=== PATIENT | female | born 1975 | race Hispanic/Latino ===

== ENCOUNTER 2018-03-08 11:00 | Emergency (ER) | payer BC, SELFPAY ==
--- NOTE | 2018-03-08 12:38 | RAD REPORT ---
EXAM DESCRIPTION: CT - Head Brain Wo Cont - 03/08/2018 12:27 pm CLINICAL HISTORY: Left arm numbness for 1 week COMPARISON: None. TECHNIQUE: Computed axial tomography of the head was obtained. IV contrast was not requested. All CT scans are performed using dose optimization technique as appropriate and may include automated exposure control or mA/KV adjustment according to patient size. FINDINGS: An intracranial bleed is not seen . The ventricles are normal in caliber. No extra-axial fluid collection is noted. Fluid within the sinuses/ mastoids is not seen. IMPRESSION: No acute intracranial abnormality is seen. If patient's symptoms persist MRI of the bra in would be recommended.
[2018-03-08] MEDS ORDERED: NA CHLORIDE 0.9% 1,000 ML ONE (12:41)
[2018-03-08] MEDS ORDERED: METOPROLOL TAR 25 MG TAB ONE (12:49)
--- NOTE | 2018-03-08 13:02 | RAD REPORT ---
EXAM DESCRIPTION: RAD - Chest Single View - 03/08/2018 12:46 pm CLINICAL HISTORY: Chest pain, cough COMPARISON: None. TECHNIQUE: AP portable chest image was obtained 1223 hours . FINDINGS: Lungs are clear. Heart and vasculature are normal. No measurable pleural effusion and no p neumothorax. No gross bony abnormality seen. No acute aortic findings suspected. IMPRESSION: No acute cardiopulmonary process.
[2018-03-08 13:11] LABS: Urine Blood TRACE (NEG); Urine Glucose NEGATIVE (NEG); Urine Protein NEGATIVE (NEG); Urine Specific Gravity 1.015 (1.005-1.030)
[2018-03-08 13:22] LABS: Absolute Lymphocytes (CBC) 1.5 K/uL (0.7-4.9); Absolute Monocytes 0.4 K/uL (0.1-1.3); Absolute Neutrophil 1.7 K/uL (1.8-8.0); Basophils % 1.1 % (0-1.3); Eosinophils % 0.9 % (0-4.4); Hematocrit 39.8 % (36.0-45.0); Lymphocytes % 40.7 % (15.3-44.8); MCV 87.4 fL (80-100); MPV 8.6 fL (7.6-11.3); Monocytes % 10.9 % (3.3-12.3); RBC Red Blood Cell Count 4.55 M/uL (3.86-4.86)
[2018-03-08 13:25] LABS: Bicarbonate 28 mEq/L (21-31); Glucose Level 98 mg/dL (65-120); Potassium 3.4 mEq/L (3.6-5.0); Sodium Level 138 mEq/L (135-145)
[2018-03-08 13:28] LABS: Protime INR 0.95
[2018-03-08 13:31] LABS: ALT/SGPT 31 IU/L (10-60); AST/SGOT 26 IU/L (10-42); Albumin 4.3 g/dL (3.2-5.5); Alkaline Phosphatase 68 IU/L (42-121); BUN Blood Urea Nitrogen 7 mg/dL (6-20); Bilirubin Direct 0.1 mg/dL (0-0.2); Bilirubin Total 0.4 mg/dL (0.3-1.2); Creatine Phosphokinase 50 IU/L (22-269); Protein, Total 7.6 g/dL (6.0-8.3)
[2018-03-08 13:33] LABS: CKMB Creatine Kinase MB 0.4 ng/ml (0.3-4.0)
--- NOTE | 2018-03-08 13:35 | EKG ---
Test Date: 2018-03-08 Test Time: 11:38:17 Fund Development Manager: AMADO MEASUREMENT RESULTS: Intervals: Rate: 71 MN: 146 QRSD: 76 QT: 394 QTc: 428 [place]: P: 52 MN: 146 QRS: 14 T: 53 INTERPRETIVE STATEMENTS: Normal sinus rhythm Normal ECG Compared to ECG 06/21/2008 13:43:46 Sinus arrhythmia no longer present Electronically Signed On 03-08-18 13:35:25 CDT by Edy Hudson
[2018-03-08] MEDS ORDERED: ASPIRIN 81 MG CHEWABLE TABLET ONE (14:07)
--- NOTE | 2018-03-08 16:00 | EDPHYS ---
Physician Documentation [facility] Name: Shahnaz Ortega Age: 42 yrs Sex: Female : 1975 Arrival Date: 03/08/2018 Time: 11:06 Bed 14 Private MD: Out, [facility] ED Physician Everton Vásquez HPI: 03/08 12:12 This 42 yrs old Female presents to ER via Ambulatory with complaints of Chest cp Pain, Arm Pain. 12:12 The patient or guardian reports chest pain that is located primarily in the anterior cp chest wall, bilaterally. Onset: 1 week(s) ago. 12:12 The pain does not radiate. Associated signs and symptoms: Pertinent positives: cough, cp left arm tingling times 1 week, Pertinent negatives: abdominal pain, diaphoresis, dizziness, headache, lightheadedness, palpitations, recent travel, shortness of breath, syncope. The chest pain is described as a heaviness, a pressure, wax and wane. Duration: The patient or guardian reports a single episode, wax and wanes. Severity of pain: in the emergency department the pain is unchanged despite home interventions. 12:12 Patient reports history of hypertension but stopping medication. Patient denies history cp of diabetes or elevated cholesterol. 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 - Social history:: Smoking status: Patient/guardian denies using tobacco. - Ebola Screening: : Patient negative for fever greater than or equal to 101.5 degrees Fahrenheit, and additional compatible Ebola Virus Disease symptoms Patient denies exposure to infectious person Patient denies travel to an Ebola-affected area in the 21 days before illness onset No symptoms or risks identified at this time. ROS: 12:15 Constitutional: Negative for body aches, chills, fever, poor PO intake. cp 12:15 Eyes: Negative for injury, pain, redness, and discharge. cp 12:15 ENT: Positive for nasal congestion, Negative for drainage from ear(s), ear pain, sore throat, difficulty swallowing, difficulty handling secretions. 12:15 Neck: Negative for stiffness, swollen nodes, tenderness, bony tenderness. 12:15 Cardiovascular: Positive for chest pain, Negative for edema, palpitations. 12:15 Respiratory: Positive for cough, with no reported sputum, Negative for shortness of breath, wheezing. 12:15 Abdomen/GI: Negative for abdominal pain, nausea, vomiting, and diarrhea, constipation, cp black/tarry stool, rectal bleeding. 12:15 Back: Negative for pain at rest, pain with movement. 12:15 : Negative for urinary symptoms. 12:15 MS/extremity: Negative for injury or acute deformity, decreased range of motion, pain, tenderness. 12:15 Skin: Negative for cellulitis, diaphoresis, rash. 12:15 Neuro: Positive for tingling, of the left arm, Negative for altered mental status, dizziness, headache, syncope, near syncope, visual changes, weakness. 12:15 All other systems are negative. Exam: 11:48 ECG was reviewed by the Attending Physician. cp 12:25 Constitutional: The patient appears in no acute distress, alert, awake, cp non-diaphoretic, well developed, well nourished. 12:25 Head/Face: Normocephalic, atraumatic. cp 12:25 Eyes: Periorbital structures: appear normal, Pupils: equal, round, and reactive to light and accomodation, Extraocular movements: intact throughout, Conjunctiva: normal, no exudate, no injection, Sclera: no appreciated abnormality, Lids and lashes: appear normal, bilaterally. 12:25 ENT: External ear(s): are unremarkable, Ear canal(s): are normal, clear, TM's: bulging, is not appreciated, bilaterally, dullness, bilaterally, erythema, is not appreciated, bilaterally, Nose: is normal, Mouth: is normal, Posterior pharynx: is normal, airway is patent, no erythema, no exudate, Voice: is normal. 12:25 Neck: ROM/movement: is normal, is supple, without pain, no range of motions limitations, no nuchal rigidity. 12:25 Chest/axilla: Inspection: normal, Palpation: is normal, no crepitus, no tenderness. 12:25 Cardiovascular: Rate: normal, Rhythm: regular, Pulses: Pulses are 2+ in right radial artery and left radial artery. Heart sounds: murmur, not appreciated, rub, not appreciated, gallop, not appreciated, Edema: is not appreciated, JVD: is not appreciated. 12:25 Respiratory: the patient does not display signs of respiratory distress, Respirations: normal, no use of accessory muscles, no retractions, no splinting, no tachypnea, labored breathing, is not present, Breath sounds: are clear throughout, no decreased breath sounds, no stridor, no wheezing. 12:25 Abdomen/GI: Inspection: abdomen appears normal, Bowel sounds: active, all quadrants, Palpation: abdomen is soft and non-tender, in all quadrants, rebound tenderness, is not appreciated, voluntary guarding, is not appreciated, involuntary guarding, is not appreciated. 12:25 Back: pain, is absent, ROM is normal, CVA tenderness, is absent, vertebral tenderness, is not appreciated. 12:25 Musculoskeletal/extremity: Extremities: all appear grossly normal, with no appreciated pain with palpation. 12:25 Skin: cellulitis, is not appreciated, no rash present. 12:25 Neuro: Cerebellar function: is grossly normal, Motor: moves all fours, strength is normal, Sensation: tingling, that is mild, of the left arm, Gait: is steady. Vital Signs: 11:10 BP 151 / 112; Pulse 77; Resp 16; Temp 97.4; Pulse Ox 99% on R/A; Weight 65.77 kg; aj Height 5 ft. 2 in. (157.48 cm); 13:00 BP 132 / 103; Pulse 87; Resp 18 S; Pulse Ox 100% on R/A; sg 15:09 BP 149 / 98; Pulse 71; Resp 16; Pulse Ox 99% on R/A; sg 16:06 BP 141 / 98; Pulse 65; Resp 16; Pulse Ox 99% on R/A; sg 11:10 Body Mass Index 26.52 (65.77 kg, 157.48 cm) aj NIH Stroke Scale Scores: 12:15 NIHSS Score: 1 cp [place] Coma Score: 12:15 Eye Response: spontaneous(4). Verbal Response: oriented(5). Motor Response: obeys cp commands(6). Total: 15. MDM: 12:03 Patient medically screened. cp 13:00 Differential diagnosis: CVA, angina, acute VA, pneumonia, acute bronchitis, cardiac cp arrythmia, HTN crisis, electrolyte abnormality. 16:00 Data reviewed: vital signs, nurses notes, lab test result(s), EKG, radiologic studies, cp CT scan, plain films, and as a result, I will discharge patient. 16:00 Test interpretation: by ED physician or midlevel provider: ECG, plain radiologic cp studies. Counseling: I had a detailed discussion with the patient and/or guardian regarding: the historical points, exam findings, and any diagnostic results supporting the discharge/admit diagnosis, the presence of at least one elevated blood pressure reading (>120/80) during this emergency department visit, lab results, radiology results, the need for outpatient follow up, a family practitioner, to return to the emergency department if symptoms worsen or persist or if there are any questions or concerns that arise at home. Response to treatment: the patient's symptoms have markedly improved after treatment. Special discussion: Based on the patient's history, exam, and Dx evaluation, there is no indication for emergent intervention or inpatient Tx. It is understood by the patient/guardian that if the Sx's persist or worsen they need to return immediately for re-evaluation. I have referred the patient to see his PCP for further evaluation of high blood pressure. 16:00 The patient was given aspirin in the Emergency Department. cp 16:00 ED course: VSS. Head CT negative for acute findings. EKGs and troponins negative. Blood cp pressure improved and patient reports symptoms improved. Patient reports history of neck pain that was improved after daughter massaged area. Will discharge to home and recommend f/u with PCP. 03/08 12:17 Order name: Basic Metabolic Panel; Complete Time: 14:30 cp 03/08 14:31 Interpretation: Normal except: K 3.4. cp 03/08 12:17 Order name: BNP; Complete Time: 14:30 cp 03/08 12:17 Order name: CBC with Diff; Complete Time: 14:30 cp 03/08 14:31 Interpretation: Normal except: WBC 3.6; NEUT A 1.7. cp 03/08 12:17 Order name: Ckmb; Complete Time: 14:30 cp 03/08 12:17 Order name: CPK; Complete Time: 14:30 cp 03/08 12:17 Order name: LFT's; Complete Time: 14:30 cp 03/08 12:17 Order name: Magnesium; Complete Time: 14:30 cp 03/08 12:17 Order name: PT-INR; Complete Time: 14:30 cp 03/08 12:17 Order name: Ptt, Activated; Complete Time: 14:30 cp 03/08 12:17 Order name: Troponin (emerg Dept Use Only); Complete Time: 14:30 cp 03/08 15:07 Interpretation: TROPED < 0.03; Reviewed. 03/08 12:17 Order name: XRAY Chest (1 view); Complete Time: 13:07 cp 03/08 12:17 Order name: CT Head Brain wo Cont; Complete Time: 13:07 cp 03/08 12:47 Order name: Urine Dipstick--Ancillary (enter results); Complete Time: 14:30 em1 03/08 15:06 Interpretation: Normal except: UBLD TRACE. cp 03/08 15:19 Order name: Troponin (emerg Dept Use Only); Complete Time: 15:58 sg 03/08 12:17 Order name: EKG; Complete Time: 12:17 cp 03/08 12:17 Order name: Cardiac monitoring; Complete Time: 12:19 cp 03/08 12:17 Order name: EKG - Nurse/Tech; Complete Time: 15:33 cp 03/08 12:17 Order name: IV Saline Lock; Complete Time: 12:19 cp 03/08 12:17 Order name: Labs collected and sent; Complete Time: 12:19 cp 03/08 12:17 Order name: O2 Per Protocol; Complete Time: 12:19 cp 03/08 12:17 Order name: O2 Sat Monitoring; Complete Time: 12:19 cp 03/08 12:17 Order name: Urine Dipstick-Ancillary (obtain specimen); Complete Time: 12:46 cp 03/08 12:46 Order name: Urine Test (obtain specimen); Complete Time: 12:46 sg 03/08 15:19 Order name: EKG; Complete Time: 15:19 sg EC:48 Rate is 71 beats/min. Rhythm is regular. RI interval is normal. QRS interval is normal. cp QT interval is normal. No ST changes noted. Interpreted by me. Reviewed by me. Administered Medications: 13:00 Drug: Metoprolol 25 mg Route: PO; sg 14:00 Follow up: Response: No adverse reaction; Blood sugar is lowered sg 13:00 Drug: NS 0.9% 1000 ml Route: IV; Rate: 1 bolus; Site: right antecubital; sg 14:10 Drug: Aspirin Chewable Tablet 324 mg Route: PO; sg 15:00 Follow up: Response: No adverse reaction sg 16:07 Drug: Potassium Effervescent Tablet 25 mEq Route: PO; sg 16:48 Follow up: Response: No adverse reaction sg Disposition: 19:06 Co-signature as Attending Physician, Evreton Vásquez MD. rn Disposition: 03/08/18 16:00 Discharged to Home. Impression: Chest pain, unspecified, Paresthesia of skin - Left Arm, Hypertensive heart disease. - Condition is Stable. - Discharge Instructions: Nonspecific Chest Pain, Hypertension, Paresthesia, How to Take Your Blood Pressure, [id number], Aspirin and Your Heart, Managing Your High Blood Pressure. - Prescriptions for Metoprolol Tartrate 25 mg Oral Tablet - take 1 tablet by ORAL route 2 times per day with a meal; 30 tablet. - Work release form, Medication Reconciliation Form, Thank You Letter, Antibiotic Education, Prescription Opioid Use form. - Follow up: Private Physician; When: 1 - 2 days; Reason: Recheck today's complaints. Follow up: Edy Hudson MD; When: 1 - 2 days; Reason: hypertension and chest pain. - Problem is new. - Symptoms have improved. NIH Stroke Scale - NIH Stroke Score Date: 03/08/2018 Time: 12:15 Total Score = 1 1a. Level of Consciousness (LOC) - 0(Alert) 1b. Level of Consciousness (LOC) (Year \T\ Age) - 0(Both) 1c. LOC Commands (Open \T\ Closes Eyes/Hydroelectric Mechanic) - 0(Both) 2. Best Gaze (Lateral Gaze Paresis) - 0(Normal) 3. Visual Field Loss - 0(No visual loss) 4. Facial Palsy - 0(Normal) 5a. Left Arm: Motor (10-second hold) - 0(No drift) 5b. Right Arm: Motor (10-second hold) - 0(No drift) 6a. Left Leg: Motor (5-second hold - always test supine) - 0(No drift) 6b. Right Leg: Motor (5-second hold - always test supine) - 0(No drift) 7. Limb Ataxia (finger/nose \T\ heel/cartagena - test with eyes open) - 0(Absent) 8. Sensory Loss (pinprick arms/legs/face) - 1(Mild to moderate loss) 9. Best Language: Aphasia (description/naming/reading) - 0(No aphasia) 10. Dysarthria (speech clarity - read or repeat words) - 0(Normal) 11. Extinction and Inattention (visual/tactile/auditory/spatial/personal) - 0(No abnormality) Initials: cp Signatures: Dispatcher [employer] EDKiran Abreu RN RN Denice Mendieta RN RN aj Nieto, Roman, MD MD rn Page, Corey, HALEIGH PA cp Corrections: (The following items were deleted from the chart) 17:02 16:00 03/08/2018 16:00 Discharged to Home. Impression: Chest pain, unspecified; sg Paresthesia of skin - Left Arm; Hypertensive heart disease. Condition is Stable. Forms are Medication Reconciliation Form, Thank You Letter, Antibiotic Education, Prescription Opioid Use. Follow up: Private Physician; When: 1 - 2 days; Reason: Recheck today's complaints. Follow up: Edy Hudson; When: 1 - 2 days; Reason: hypertension and chest pain. Problem is new. Symptoms have improved. cp
--- NOTE | 2018-03-08 16:00 | ER ---
Nurse's Notes [facility] Name: Shahnaz Ortega Age: 42 yrs Sex: Female : 1975 Arrival Date: 03/08/2018 Time: 11:06 Bed 14 Private MD: Out, [facility] Diagnosis: Chest pain, unspecified;Paresthesia of skin-Left Arm;Hypertensive heart disease Presentation: 03/08 11:08 Presenting complaint: Patient states: Chest pain and cough with numbness to left arm aj and leg for 1 week. Ambulated to triage with steady gait. Respirations are even and unlabored in NAD. Transition of care: patient was not received from another setting of care. Onset of symptoms was March 02, 2018. Risk Assessment: Do you want to hurt yourself or someone else? Patient reports no desire to harm self or others. Care prior to arrival: None. 11:08 Method Of Arrival: Ambulatory aj 11:08 Acuity: KRISTI 3 aj 12:30 Initial Sepsis Screen: Does the patient meet any 2 criteria? No. Patient's initial sg sepsis screen is negative. Does the patient have a suspected source of infection? No. Patient's initial sepsis screen is negative. Triage Assessment: 11:10 General: Appears in no apparent distress. comfortable, Behavior is calm, cooperative, aj appropriate for age. Pain: Complains of pain in chest. EENT: Reports nasal congestion nasal discharge. Neuro: Level of Consciousness is awake, alert, obeys commands, Oriented to person, place, time, situation, Appropriate for age. Neuro: Reports numbness in left arm and left leg. Cardiovascular: Reports chest pain, Patient's skin is warm and dry. Respiratory: Reports cough that is Airway is patent Respiratory effort is even, unlabored, Respiratory pattern is regular, symmetrical. Derm: Skin is intact, is healthy with good turgor, Skin is pink, warm \T\ dry. normal. 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 - Social history:: Smoking status: Patient/guardian denies using tobacco. - Ebola Screening: : Patient negative for fever greater than or equal to 101.5 degrees Fahrenheit, and additional compatible Ebola Virus Disease symptoms Patient denies exposure to infectious person Patient denies travel to an Ebola-affected area in the 21 days before illness onset No symptoms or risks identified at this time. Screenin:30 Abuse screen: Denies threats or abuse. Denies injuries from another. Nutritional sg screening: No deficits noted. Tuberculosis screening: No symptoms or risk factors identified. Never had TB. Fall Risk None identified. Assessment: 12:30 General: Appears in no apparent distress. comfortable, well groomed, well developed, sg well nourished, Behavior is calm, cooperative, appropriate for age. Pain: Complains of pain in chest and left leg and left arm. Neuro: Level of Consciousness is awake, alert, obeys commands, Oriented to person, place, time, situation, Superintendent Local are equal bilaterally Moves all extremities. Full function Speech is normal, Facial symmetry appears normal. Cardiovascular: Heart tones S1 S2 present Capillary refill is brisk in bilateral fingers Patient's skin is warm and dry. Chest pain is described as mild, diffuse, is located in left anterior chest wall. Respiratory: Airway is patent Respiratory effort is even, unlabored, Respiratory pattern is regular, symmetrical, Breath sounds are clear. GI: No signs and/or symptoms were reported involving the gastrointestinal system. : No signs and/or symptoms were reported regarding the genitourinary system. EENT: No signs and/or symptoms were reported regarding the EENT system. Derm: Skin is intact, is healthy with good turgor, Skin is dry, Skin is normal, Skin temperature is warm. Musculoskeletal: No signs and/or symptoms reported regarding the musculoskeletal system. Vital Signs: 11:10 BP 151 / 112; Pulse 77; Resp 16; Temp 97.4; Pulse Ox 99% on R/A; Weight 65.77 kg; aj Height 5 ft. 2 in. (157.48 cm); 13:00 BP 132 / 103; Pulse 87; Resp 18 S; Pulse Ox 100% on R/A; sg 15:09 BP 149 / 98; Pulse 71; Resp 16; Pulse Ox 99% on R/A; sg 16:06 BP 141 / 98; Pulse 65; Resp 16; Pulse Ox 99% on R/A; sg 11:10 Body Mass Index 26.52 (65.77 kg, 157.48 cm) aj [place] Coma Score: 12:15 Eye Response: spontaneous(4). Verbal Response: oriented(5). Motor Response: obeys cp commands(6). Total: 15. NIH Stroke Scale Scores: 12:15 NIHSS Score: 1 cp ED Course: 11:06 Patient arrived in ED. sb2 11:06 Out, of Town is Private Physician. sb2 11:09 Triage completed. aj 11:10 Arm band placed on left wrist. Patient placed in waiting room, Patient notified of wait aj time. 11:59 Jamie Gonzalez PA is PHCP. cp 11:59 Everton Vásquez MD is Attending Physician. cp 12:18 Kiran Nevarez, ANNITA is Primary Nurse. sg 12:26 EKG done, by asbestos abatement technician. reviewed by Everton Vásquez MD. at1 12:28 CT Head Brain wo Cont In Process Unspecified. EDMS 12:28 CT completed. Patient tolerated procedure well. Patient moved to radiology via vr wheelchair. 12:30 Patient has correct armband on for positive identification. Bed in low position. Call sg light in reach. electronic device monitor on. Pulse ox on. NIBP on. Warm blanket given. Head of bed elevated. 12:42 XRAY Chest (1 view) In Process Unspecified. EDMS 12:55 Initial lab(s) drawn, by me, sent to lab. Urine collected: clean catch specimen, clear. sg Inserted saline lock: 22 gauge in right antecubital area, using aseptic technique. Blood collected. Patient maintains SpO2 saturation greater than 95% on room air. 14:00 Repeat lab(s) drawn. by me, sent to lab. sg 15:22 EKG done, by asbestos abatement technician. reviewed by Jamie RICARDO. sm3 15:59 Edy Hudson MD is Referral Physician. cp 16:49 No provider procedures requiring assistance completed. IV discontinued, intact, sg bleeding controlled, No redness/swelling at site. Pressure dressing applied. Administered Medications: 13:00 Drug: Metoprolol 25 mg Route: PO; sg 14:00 Follow up: Response: No adverse reaction; Blood sugar is lowered sg 13:00 Drug: NS 0.9% 1000 ml Route: IV; Rate: 1 bolus; Site: right antecubital; sg 14:10 Drug: Aspirin Chewable Tablet 324 mg Route: PO; sg 15:00 Follow up: Response: No adverse reaction sg 16:07 Drug: Potassium Effervescent Tablet 25 mEq Route: PO; sg 16:48 Follow up: Response: No adverse reaction Outcome: 16:00 Discharge ordered by MD. cp 16:49 Discharged to home ambulatory, with family. 16:49 Condition: good 16:49 Discharge instructions given to patient, Instructed on discharge instructions, follow up and referral plans. medication usage, safety practices, Demonstrated understanding of instructions, follow-up care, medications, Prescriptions given X 2. 17:02 Patient left the ED. NIH Stroke Scale - NIH Stroke Score Date: 03/08/2018 Time: 12:15 Total Score = 1 1a. Level of Consciousness (LOC) - 0(Alert) 1b. Level of Consciousness (LOC) (Year \T\ Age) - 0(Both) 1c. LOC Commands (Open \T\ Closes Eyes/Drop Wire Aligner) - 0(Both) 2. Best Gaze (Lateral Gaze Paresis) - 0(Normal) 3. Visual Field Loss - 0(No visual loss) 4. Facial Palsy - 0(Normal) 5a. Left Arm: Motor (10-second hold) - 0(No drift) 5b. Right Arm: Motor (10-second hold) - 0(No drift) 6a. Left Leg: Motor (5-second hold - always test supine) - 0(No drift) 6b. Right Leg: Motor (5-second hold - always test supine) - 0(No drift) 7. Limb Ataxia (finger/nose \T\ heel/cartagena - test with eyes open) - 0(Absent) 8. Sensory Loss (pinprick arms/legs/face) - 1(Mild to moderate loss) 9. Best Language: Aphasia (description/naming/reading) - 0(No aphasia) 10. Dysarthria (speech clarity - read or repeat words) - 0(Normal) 11. Extinction and Inattention (visual/tactile/auditory/spatial/personal) - 0(No abnormality) Initials: cp Signatures: Dispatcher [employer] EDKiran Abreu RN RN sg Myers, Amanda, RN Rebecca Carter Amanda, hotel reservation agent EKG Tat1 Jamie Gonzalez PA PA cp Tatianna Ralph sb2 Breann Fregoso sm3
[2018-03-08] MEDS ORDERED: POTASSIUM 25 MEQ EFFERV TAB ONE (16:19)
[2018-03-08 17:15] VITALS: TEMP 97.4
[2018-03-08 17:17] VITALS: O2SAT 99
[2018-03-08 17:18] VITALS: BP 141/98
--- NOTE | 2018-03-08 22:40 | EKG ---
Test Date: 2018-03-08 Test Time: 15:22:01 Computer Consultant: ROMARIO MEASUREMENT RESULTS: Intervals: Rate: 58 ME: 152 QRSD: 76 QT: 434 QTc: 426 [place]una: P: 24 ME: 152 QRS: 45 T: 42 INTERPRETIVE STATEMENTS: Sinus bradycardia Otherwise normal ECG Compared to ECG 03/08/2018 11:38:17 Sinus rhythm no longer present Electronically Signed On 03-08-18 22:39:28 CDT by Edy Hudson
== END 2018-03-08 17:02 | disposition home or self-care (01) ==
LOC: ER 11:00
DX: I11.9 Hypertensive heart disease without heart failure (principal); R20.2 Paresthesia of skin
CPT/HCPCS: 36415; 70450; 71045; 80048; 80076; 81003; 82550; 82553; 83735; 83880; 84484; 85025; 85610; 85730; 93005; 99285; J7030

== ENCOUNTER 2018-05-16 10:01 | Emergency (ER) | payer SELFPAY ==
[2018-05-16] MEDS ORDERED: KETOROLAC 30 MG/ML INJ ONE (10:42)
[2018-05-16] MEDS ORDERED: BISACODYL 10 MG RECTAL SUPP ONE (10:58)
[2018-05-16] MEDS ORDERED: NA CHLORIDE 0.9% 1,000 ML ONE (10:58)
[2018-05-16] MEDS ORDERED: LACTULOSE 20 GM/30 ML UCUP ONE (10:58)
[2018-05-16 11:00] LABS: Absolute Lymphocytes (CBC) 2.6 K/uL (0.7-4.9); Absolute Monocytes 0.3 K/uL (0.1-1.3); Absolute Neutrophil 3.6 K/uL (1.8-8.0); Basophils % 0.7 % (0-1.3); Eosinophils % 0.5 % (0-4.4); Hematocrit 38.3 % (36.0-45.0); Lymphocytes % 39.2 % (15.3-44.8); MCH 30.5 pg (27.0-35.0); MCV 89.3 fL (80-100); MPV 9.3 fL (7.6-11.3); Monocytes % 4.3 % (3.3-12.3); RBC Red Blood Cell Count 4.29 M/uL (3.86-4.86)
[2018-05-16 11:13] LABS: Urine Blood TRACE (NEG); Urine Glucose NEGATIVE (NEG); Urine Protein NEGATIVE (NEG); Urine Specific Gravity 1.015 (1.005-1.030); Urine pH 6.5 (5.0-7.0)
[2018-05-16 11:13] LABS: Urine Specific Gravity 1.015 (1.005-1.030)
[2018-05-16 11:19] LABS: Urine Bacteria <20 /HPF (<20); Urine Culture Reflex Order REFLEXED; Urine RBC <5 /HPF (NONE SEEN)
[2018-05-16 11:21] LABS: ALT/SGPT 20 U/L (12-78); AST/SGOT 15 U/L (15-37); Albumin 3.7 g/dL (3.4-5.0); Alkaline Phosphatase 50 U/L (45-117); Amylase Level 30 U/L (25-115); BUN Blood Urea Nitrogen 9 mg/dL (7-18); Bicarbonate 25 mmol/L (21-32); Bilirubin Direct 0.1 mg/dL (0-0.2); Bilirubin Total 0.4 mg/dL (0.2-1.0); Glucose Level 101 mg/dL (74-106); Lipase 106 U/L (73-393); Potassium 3.6 mmol/L (3.5-5.1); Protein, Total 7.9 g/dL (6.4-8.2); Sodium Level 140 mmol/L (136-145)
--- NOTE | 2018-05-16 13:08 | RAD REPORT ---
EXAM DESCRIPTION: CT - Abdomen Pelvis W Contrast - 05/16/2018 12:25 pm CLINICAL HISTORY: Abdominal pain. Nausea for 2 weeks COMPARISON: None. TECHNIQUE: Computed axial tomography of the abdomen and pelvis was obtained. 100 cc Isovue-300 is ad ministered intravenously. Oral contrast was given. All CT scans are performed using dose optimization technique as appropriate and may include automated exposure control or mA/KV adjustment according to patient size. FINDINGS: Fatty infiltration of liver is present. Spleen, pancreas, adrenals and kidneys appear unremarkable. The appendix is normal caliber. There is no evidence of diverticulitis A hysterectomy has been. An adnexal mass is not displayed. IMPRESSION: No acute abnormality is displayed
--- NOTE | 2018-05-16 13:35 | EDPHYS ---
Physician Documentation [facility] Name: Shahnaz Ortega Age: 42 yrs Sex: Female : 1975 Arrival Date: 05/16/2018 Time: 10:03 Bed 10 Private MD: None, None ED Physician Jamie Valle HPI: 05/16 10:31 This 42 yrs old Female presents to ER via Ambulatory with complaints of jaime Abdominal Swelling. 10:31 The patient presents with abdominal pain in the lower abdomen, abdominal distention in jaime the upper abdomen, in the lower abdomen. Onset: The symptoms/episode began/occurred 3 day(s) ago. The symptoms do not radiate. Associated signs and symptoms: Pertinent positives: constipation, nausea. The symptoms are described as crampy, steady. Modifying factors: The symptoms are alleviated by nothing, the symptoms are aggravated by movement, pressure. Severity of pain: At its worst the pain was moderate in the emergency department the pain is unchanged. The patient has not experienced similar symptoms in the past. [employer]: 13:00 LMP N/A - Hysterectomy ss Historical: - Allergies: 10:28 NKA; iw - PMHx: 10:28 Anxiety; Hypertension; iw - PSHx: 10:28 Hysterectomy; Bladder suspension; ; left elbow; abdominoplasty; iw - Immunization history:: Adult Immunizations up to date. - Ebola Screening: : Patient negative for fever greater than or equal to 101.5 degrees Fahrenheit, and additional compatible Ebola Virus Disease symptoms Patient denies exposure to infectious person Patient denies travel to an Ebola-affected area in the 21 days before illness onset No symptoms or risks identified at this time. - Family history:: not pertinent. - Social history:: Smoking status: Patient/guardian denies using tobacco. ROS: 10:42 Constitutional: Negative for fever, chills, and weight loss, Eyes: Negative for injury, jaime pain, redness, and discharge, ENT: Negative for injury, pain, and discharge, Neck: Negative for injury, pain, and swelling, Cardiovascular: Negative for chest pain, palpitations, and edema, Respiratory: Negative for shortness of breath, cough, wheezing, and pleuritic chest pain, Back: Negative for injury and pain, : Negative for injury, bleeding, discharge, and swelling, MS/Extremity: Negative for injury and deformity, Skin: Negative for injury, rash, and discoloration, Neuro: Negative for headache, weakness, numbness, tingling, and seizure, Psych: Negative for depression, anxiety, suicide ideation, homicidal ideation, and hallucinations, Allergy/Immunology: Negative for hives, rash, and allergies, Endocrine: Negative for neck swelling, polydipsia, polyuria, polyphagia, and marked weight changes, Hematologic/Lymphatic: Negative for swollen nodes, abnormal bleeding, and unusual bruising. 10:42 Abdomen/GI: Positive for abdominal pain, constipation, of the right upper quadrant, left upper quadrant, right lower quadrant and left lower quadrant. Exam: 10:42 Constitutional: This is a well developed, well nourished patient who is awake, alert, jaime and in no acute distress. Head/Face: Normocephalic, atraumatic. Eyes: Pupils equal round and reactive to light, extra-ocular motions intact. Lids and lashes normal. Conjunctiva and sclera are non-icteric and not injected. Cornea within normal limits. Periorbital areas with no swelling, redness, or edema. ENT: Nares patent. No nasal discharge, no septal abnormalities noted. Tympanic membranes are normal and external auditory canals are clear. Oropharynx with no redness, swelling, or masses, exudates, or evidence of obstruction, uvula midline. Mucous membranes moist. Neck: Trachea midline, no thyromegaly or masses palpated, and no cervical lymphadenopathy. Supple, full range of motion without nuchal rigidity, or vertebral point tenderness. No Meningismus. Chest/axilla: Normal chest wall appearance and motion. Nontender with no deformity. No lesions are appreciated. Cardiovascular: Regular rate and rhythm with a normal S1 and S2. No gallops, murmurs, or rubs. Normal PMI, no JVD. No pulse deficits. Respiratory: Lungs have equal breath sounds bilaterally, clear to auscultation and percussion. No rales, rhonchi or wheezes noted. No increased work of breathing, no retractions or nasal flaring. Back: No spinal tenderness. No costovertebral tenderness. Full range of motion. Female : Normal external genitalia. Skin: Warm, dry with normal turgor. Normal color with no rashes, no lesions, and no evidence of cellulitis. MS/ Extremity: Pulses equal, no cyanosis. Neurovascular intact. Full, normal range of motion. Neuro: Awake and alert, GCS 15, oriented to person, place, time, and situation. Cranial nerves II-XII grossly intact. Motor strength 5/5 in all extremities. Sensory grossly intact. Cerebellar exam normal. Normal gait. Psych: Awake, alert, with orientation to person, place and time. Behavior, mood, and affect are within normal limits. 10:42 Abdomen/GI: Inspection: distension, Bowel sounds: active, Palpation: mild abdominal tenderness, moderate abdominal tenderness, in the right lower quadrant and left lower quadrant, Liver: no appreciated palpable abnormalities, Hernia: not appreciated. Vital Signs: 10:28 BP 146 / 88; Pulse 65; Resp 16; Temp 98.2; Pulse Ox 98% on R/A; Weight 66.22 kg; Height iw 5 ft. 2 in. (157.48 cm); Pain 6/10; 13:00 BP 137 / 93; Pulse 61; Resp 15; Pulse Ox 99% on R/A; Pain 6/10; ss 10:28 Body Mass Index 26.70 (66.22 kg, 157.48 cm) MDM: 10:21 Patient medically screened. [facility] 10:44 Data reviewed: vital signs, nurses notes, lab test result(s), radiologic studies, CT jaime scan. 05/16 10:31 Order name: Amylase, Serum; Complete Time: 12:07 [facility] 05/16 10:31 Order name: Basic Metabolic Panel; Complete Time: 12:07 [facility] 05/16 10:31 Order name: CBC with Diff; Complete Time: 12:07 [facility] 05/16 10:31 Order name: Creatinine for Radiology; Complete Time: 12:07 [facility] 05/16 10:31 Order name: Hepatic Function; Complete Time: 12:07 [facility] 05/16 10:31 Order name: Lipase; Complete Time: 12:07 [facility] 05/16 10:31 Order name: Urine Microscopic Only; Complete Time: 12:07 [facility] 05/16 10:31 Order name: CT Abd/Pelvis - W/Contrast; Complete Time: 13:34 [facility] 05/16 11:02 Order name: Urine Dipstick--Ancillary (enter results) 05/16 11:04 Order name: Urine --Ancillary (enter results); Complete Time: 12:07 05/16 11:21 Order name: Urine Culture EDMS 05/16 10:31 Order name: IV Saline Lock; Complete Time: 10:50 [facility] 05/16 10:31 Order name: Labs collected and sent; Complete Time: 10:50 [facility] 05/16 10:31 Order name: Urine Dipstick-Ancillary (obtain specimen); Complete Time: 10:44 [facility] Administered Medications: 10:57 Drug: NS 0.9% 1000 ml Route: IV; Rate: 1 bolus; Site: left antecubital; ss 12:14 Follow up: IV Status: Completed infusion; IV Intake: 1000ml 11:03 Drug: Lactulose 30 grams Volume: 45 ml; Route: PO; ss 12:15 Follow up: Response: No adverse reaction iw 11:03 Drug: Dulcolax Suppository 10 mg Route: MS; ss 14:00 Follow up: Response: No adverse reaction iw Disposition: 05/16/18 13:34 Discharged to Home. Impression: Abdominal tenderness, Constipation, Urinary tract infection, site not specified. - Condition is Stable. - Discharge Instructions: Abdominal Pain, Adult, Constipation, Adult, Dysuria. - Prescriptions for Bentyl 20 mg Oral Tablet - take 1 tablet by ORAL route every 6 hours As needed; 20 tablet. Dulcolax 10 mg Rectal Suppository - insert 1 suppository by RECTAL route every 12 hours As needed; 10 suppository. Miralax 17 gram/dose Oral - take 1 packet by ORAL route once daily dilute powder in 8 ounces of water or juice; 14 packet. Bactrim DS 800- 160 mg Oral Tablet - take 1 tablet by ORAL route every 12 hours for 7 days; 14 tablet. - Medication Reconciliation Form, Thank You Letter, Antibiotic Education, Prescription Opioid Use form. - Follow up: Private Physician; When: 2 - 3 days; Reason: Recheck today's complaints, Continuance of care, Re-evaluation by your physician. - Problem is new. - Symptoms have improved. Signatures: Dispatcher [employer] [facility] Jamie Valle MD MD cha Williams, Irene, RN Eloisa Briones RN RN ss Corrections: (The following items were deleted from the chart) 10:34 10:31 Urine Test ordered. [facility] 14:40 13:34 05/16/2018 13:34 Discharged to Home. Impression: Abdominal tenderness; iw Constipation; Urinary tract infection, site not specified. Condition is Stable. Discharge Instructions: Abdominal Pain, Adult, Constipation, Adult, Dysuria. Prescriptions for Bentyl 20 mg Oral Tablet - take 1 tablet by ORAL route every 6 hours As needed; 20 tablet, Dulcolax 10 mg Rectal Suppository - insert 1 suppository by RECTAL route every 12 hours As needed; 10 suppository, Miralax 17 gram/dose Oral - take 1 packet by ORAL route once daily dilute powder in 8 ounces of water or juice; 14 packet, Bactrim DS 800-160 mg Oral Tablet - take 1 tablet by ORAL route every 12 hours for 7 days; 14 tablet. and Forms are Medication Reconciliation Form, Thank You Letter, Antibiotic Education, Prescription Opioid Use. Follow up: Private Physician; When: 2 - 3 days; Reason: Recheck today's complaints, Continuance of care, Re-evaluation by your physician. Problem is new. Symptoms have improved. jaime
--- NOTE | 2018-05-16 13:35 | ER ---
Nurse's Notes [facility] Name: Shahnaz Ortega Age: 42 yrs Sex: Female : 1975 Arrival Date: 05/16/2018 Time: 10:03 Bed 10 Private MD: None, None Diagnosis: Abdominal tenderness;Constipation;Urinary tract infection, site not specified Presentation: 05/16 10:20 Presenting complaint: Patient states: has not had BM in 2 weeks, has been feeling iw bloated and belching, +nausea, no vomiting, has been taking laxatives with no relief. Transition of care: patient was not received from another setting of care. Onset of symptoms was May 03, 2018. Risk Assessment: Do you want to hurt yourself or someone else? Patient reports no desire to harm self or others. Initial Sepsis Screen: Does the patient meet any 2 criteria? No. Patient's initial sepsis screen is negative. Does the patient have a suspected source of infection? No. Patient's initial sepsis screen is negative. Care prior to arrival: None. 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 - Ebola Screening: : Patient negative for fever greater than or equal to 101.5 degrees Fahrenheit, and additional compatible Ebola Virus Disease symptoms Patient denies exposure to infectious person Patient denies travel to an Ebola-affected area in the 21 days before illness onset No symptoms or risks identified at this time. - Family history:: not pertinent. - Social history:: Smoking status: Patient/guardian denies using tobacco. Screenin:40 Abuse screen: Denies threats or abuse. Denies injuries from another. Nutritional ss screening: No deficits noted. Tuberculosis screening: No symptoms or risk factors identified. Fall Risk None identified. Assessment: 10:40 General: Appears in no apparent distress. comfortable, Behavior is calm, cooperative, ss Denies fever, feeling ill, fatigue, chills. Pain: Complains of pain in suprapubic area and right lower quadrant Pain currently is 6 out of 10 on a pain scale. Quality of pain is described as "pressure, like something is stuck inside me." Pain began 2-3 weeks ago Is continuous. Neuro: Level of Consciousness is awake, alert, Oriented to person, place, time, situation. Cardiovascular: Capillary refill < 3 seconds is brisk in bilateral fingers. Respiratory: Airway is patent Trachea midline Respiratory effort is even, unlabored, Respiratory pattern is regular, symmetrical, Breath sounds are clear bilaterally. Denies cough, shortness of breath. GI: Bowel sounds present X 4 quads. Abd is soft and non tender X 4 quads. GI: Reports episodic diarrhea Patient currently denies nausea, vomiting. : Denies burning with urination, urinary frequency. EENT: Nares are clear. Derm: Skin is intact, is healthy with good turgor, Skin is pink, warm \\T\\ dry. Musculoskeletal: Circulation, motion, and sensation intact. Range of motion: intact in all extremities, Swelling absent. 12:15 Reassessment: Patient appears in no apparent distress at this time. Pt ambulated to restroom to attempt to have BM. Pt states the last time she went to the restroom, "it was just water". 12:26 Reassessment: Pt to CT now VIA wheelchair. 13:15 Reassessment: Patient appears in no apparent distress at this time. No changes from previously documented assessment. Patient and/or family updated on plan of care and expected duration. Pain level reassessed. 14:29 Reassessment: awaiting for Dr. Valle to discuss discharge instructions to patient ss and follow up care. 14:39 Reassessment: Patient appears in no apparent distress at this time. Patient and/or iw family updated on plan of care and expected duration. Pain level reassessed. Patient is alert, oriented x 3, equal unlabored respirations, skin warm/dry/pink. Patient states feeling better. Patient states symptoms have improved. Vital Signs: 10:28 BP 146 / 88; Pulse 65; Resp 16; Temp 98.2; Pulse Ox 98% on R/A; Weight 66.22 kg; Height iw 5 ft. 2 in. (157.48 cm); Pain 6/10; 13:00 BP 137 / 93; Pulse 61; Resp 15; Pulse Ox 99% on R/A; Pain 6/10; ss 10:28 Body Mass Index 26.70 (66.22 kg, 157.48 cm) iw ED Course: 10:03 Patient arrived in ED. mr 10:04 None, None is Private Physician. mr 10:21 Jamie Valle MD is Attending Physician. jaime 10:23 Triage completed. iw 10:28 Arm band placed on. iw 10:40 Patient has correct armband on for positive identification. Bed in low position. Call ss light in reach. 10:40 Inserted saline lock: 22 gauge in left antecubital area, using aseptic technique. Blood ss collected. 10:44 Urine collected: clean catch specimen, cloudy, kiki colored. jb1 10:46 Oral contrast reported to be complete. vr 10:50 Eloisa Dawson, ANNITA is Primary Nurse. ss 12:[address] via wheelchair. jj2 12:24 CT completed. Patient tolerated procedure well. Patient moved back from CT. jj2 12:25 CT Abd/Pelvis - W/Contrast In Process Unspecified. EDMS 14:29 No provider procedures requiring assistance completed. IV discontinued, intact, ss bleeding controlled, No redness/swelling at site. Pressure dressing applied. Administered Medications: 10:57 Drug: NS 0.9% 1000 ml Route: IV; Rate: 1 bolus; Site: left antecubital; ss 12:14 Follow up: IV Status: Completed infusion; IV Intake: 1000ml ss 11:03 Drug: Lactulose 30 grams Volume: 45 ml; Route: PO; ss 12:15 Follow up: Response: No adverse reaction iw 11:03 Drug: Dulcolax Suppository 10 mg Route: [place]; ss 14:00 Follow up: Response: No adverse reaction iw Intake: 12:14 IV: 1000ml; Total: 1000ml. ss Outcome: 13:34 Discharge ordered by . jaime 14:39 Discharged to home ambulatory. iw 14:39 Condition: good 14:39 Discharge instructions given to patient, Instructed on discharge instructions, follow up and referral plans. medication usage, Demonstrated understanding of instructions, follow-up care, medications, Prescriptions given X 4. 14:39 Discharge instructions given to pt was advised to hold off on stool softener and iw laxative, pt reports having liquid stool, advised to follow up with GI if symptoms persist, copy of GI doctors given to patient 14:40 Patient left the ED. iw Signatures: Dispatcher [employer] EDMS Vivek Alvarez jb1 Jamie Valle MD MD cha Rivera, Maria mr Sav[place], Charli jj2 Lo Robles, Eloisa Briones RN, RN RN ss Davis, Victoria vr
[2018-05-16 14:55] VITALS: BP 137/93; O2SAT 99
[2018-05-16 14:57] VITALS: TEMP 98.2
== END 2018-05-16 14:40 | disposition home or self-care (01) ==
LOC: ER 10:01
DX: K59.00 Constipation, unspecified (principal); N39.0 Urinary tract infection, site not specified; I10 Essential (primary) hypertension
CPT/HCPCS: 36415; 74177; 80048; 80076; 81003; 81015; 81025; 82150; 83690; 85025; 87077; 87086; 87088; 87186; 96360; 99284; J7030; Q9967

== ENCOUNTER 2019-03-28 06:34 | Day surgery (SDC) | payer BC ==
[2019-03-26 12:04] LABS: Basophils % 0.8 % (0-1.3); Eosinophils % 0.7 % (0-4.4); Hematocrit 42.6 % (36.0-45.0); Lymphocytes % 31.3 % (15.3-44.8); MPV 9.6 fL (7.6-11.3); Monocytes % 5.9 % (3.3-12.3); RBC Red Blood Cell Count 4.74 M/uL (3.86-4.86)
[2019-03-26 12:19] LABS: Urine Appearance CLEAR; Urine Bilirubin NEGATIVE (NEG); Urine Blood TRACE (NEG); Urine Color YELLOW; Urine Glucose NEGATIVE (NEG); Urine Protein NEGATIVE (NEG); Urine Urobilinogen 0.2 mg/dL (0.2-1.0)
[2019-03-26 12:23] LABS: Urine Microscopic Reflex ORDER UMIC
[2019-03-26 12:31] LABS: Urine Bacteria <20 /HPF (<20); Urine Culture Reflex Order NOT NEEDED; Urine RBC <5 /HPF (NONE SEEN)
--- OUTSIDE RECORDS SUMMARY | 2019-03-28 06:37 | XMS REPORT | Clinical Summary ---
:1975 Author Organization [facility] Address [address] [place] [address] Care Team Providers Name Role Phone Deuce Mae Primary Care Provider Unavailable Allergies No Known Allergies Medications Not on file Active Problems Not on file Encounters Date Type Specialty Care Team Description 03/07/2019 Emergency Emergency Medicine Samantha Glover Constipation, unspecified constipation type (Primary Dx); MD Hari Left pelvic adnexal fluid collection after 03/27/2018 Social History Tobacco Use Types Packs/Day Years Used Date Never Smoker Smokeless Tobacco: Never Used Alcohol Use Drinks/Week oz/Week Comments Yes Sex Assigned at Date Recorded Not on file Job Start Date Occupation Industry Not on file Not on file Not on file Travel History Travel Start Travel End No recent travel history available. Last Filed Vital Signs Vital Sign Reading Time Taken Blood Pressure 127/75 03/07/2019 1:21 PM CDT Pulse 78 03/07/2019 1:21 PM CDT Temperature 36.7 C (98 F) 03/07/2019 1:21 PM CDT Respiratory Rate 18 03/07/2019 1:21 PM CDT Oxygen Saturation 100% 03/07/2019 1:21 PM CDT Inhaled Oxygen Concentration - - Weight - - Height 157.5 cm (5' 2") 03/07/2019 10:37 AM CDT Body Mass Index - - Plan of Treatment Health Maintenance Due Date Last Done Comments INFLUENZA VACCINE 05/03/2019 10/03/2010 Procedures Procedure Name Priority Date/Time Associated Comments Diagnosis CT ABDOMEN PELVIS W STAT 03/07/2019 12:32 Results for this CONTRAST PM CDT procedure are in the results section. GRAM STAIN STAT 03/07/2019 11:27 Results for this AM CDT procedure are in the results section. URINE CULTURE STAT 03/07/2019 11:27 Results for this AM CDT procedure are in the results section. ESTIMATED GFR STAT 03/07/2019 10:55 Results for this AM CDT procedure are in the results section. LIPASE LEVEL STAT 03/07/2019 10:55 Results for this AM CDT procedure are in the results section. URINALYSIS SCREEN AND STAT 03/07/2019 10:55 Results for this MICROSCOPY, WITH AM CDT procedure are in REFLEX TO CULTURE the results section. HC COMPLETE BLD COUNT STAT 03/07/2019 10:55 Results for this W/AUTO DIFF AM CDT procedure are in the results section. COMPREHENSIVE STAT 03/07/2019 10:55 Results for this METABOLIC PANEL AM CDT procedure are in the results section. after 03/27/[address] Abdomen Pelvis W Contrast (03/07/2019 12:32 PM CDT) Specimen Narrative Performed At EXAMINATION:CT ABDOMEN PELVIS W CONTRAST [facility] CLINICAL HISTORY:abdominal paindistentionconstipation TECHNIQUE: Multiple axial images of the abdomen and pelvis were obtained following intravenous administration of iodinated contrast. CT imaging was performed with iterative reconstruction technique and/or automated exposure control to reduce radiation dose. COMPARISON: None available FINDINGS: ABDOMEN: No free air is seen in the abdomen. There is no evidence of pneumatosis. 1. Liver: No definite focal liver lesion is seen. Hepatic veins are patent. Portal vein, splenic vein, and superior mesenteric vein are patent. 2. Gallbladder: The gallbladder is normal. 3. Spleen: The spleen is not enlarged. 4. Pancreas: There is no definite focal abnormalities seen in the pancreas. No peripancreatic inflammatory change. 5. Adrenal Glands: The adrenal glands are unremarkable. 6. Kidneys: The kidneys demonstrate symmetric enhancement bilaterally. There is no definite solid renal mass seen. No evidence of a stone, hydronephrosis, or hydroureter. 7. Abdominal Aorta: The abdominal aorta is nonaneurysmal. 8. Nodes: No enlarged retroperitoneal or mesenteric lymphadenopathy. 9. Bowel: Moderate stool is present in the colon. 10. Ascites: No ascites. No suspicious peritoneal or omental nodularity. PELVIS: 1.Pelvis: Focal tubular fluid density in the left adnexa. Prior supracervical hysterectomy. No definite abnormality in the right adnexa. Bladder is grossly unremarkable. No definite pelvic adenopathy. 2. Bones: Degenerative changes of the osseous structures. No suspicious lesions. 3. Lung Bases: Unremarkable IMPRESSION: 1.Tubular fluid-filled lesion in the left adnexa which may represent a hydrosalpinx. Correlate for infection to exclude a pyosalpinx. 2.Moderate stool in the colon without evidence of colonic inflammation or obstruction. 3.Additional findings and details as above. [facility]-[id number] Procedure Note Interface, Radiology Results Incoming - 03/07/2019 1:02 PM CDT EXAMINATION: CT ABDOMEN PELVIS W CONTRAST CLINICAL HISTORY: abdominal pain distention constipation TECHNIQUE: Multiple axial images of the abdomen and pelvis were obtained following intravenous administration of iodinated contrast. CT imaging was performed with iterative reconstruction technique and/or automated exposure control to reduce radiation dose. COMPARISON: None available FINDINGS: ABDOMEN: No free air is seen in the abdomen. There is no evidence of pneumatosis. 1. Liver: No definite focal liver lesion is seen. Hepatic veins are patent. Portal vein, splenic vein, and superior mesenteric vein are patent. 2. Gallbladder: The gallbladder is normal. 3. Spleen: The spleen is not enlarged. 4. Pancreas: There is no definite focal abnormalities seen in the pancreas. No peripancreatic inflammatory change. 5. Adrenal Glands: The adrenal glands are unremarkable. 6. Kidneys: The kidneys demonstrate symmetric enhancement bilaterally. There is no definite solid renal mass seen. No evidence of a stone, hydronephrosis, or hydroureter. 7. Abdominal Aorta: The abdominal aorta is nonaneurysmal. 8. Nodes: No enlarged retroperitoneal or mesenteric lymphadenopathy. 9. Bowel: Moderate stool is present in the colon. 10. Ascites: No ascites. No suspicious peritoneal or omental nodularity. PELVIS: 1. Pelvis: Focal tubular fluid density in the left adnexa. Prior supracervical hysterectomy. No definite abnormality in the right adnexa. Bladder is grossly unremarkable. No definite pelvic adenopathy. 2. Bones: Degenerative changes of the osseous structures. No suspicious lesions. 3. Lung Bases: Unremarkable IMPRESSION: 1. Tubular fluid-filled lesion in the left adnexa which may represent a hydrosalpinx. Correlate for infection to exclude a pyosalpinx. 2. Moderate stool in the colon without evidence of colonic inflammation or obstruction. 3. Additional findings and details as above. [facility]-[id number] Performing Organization Address City/State/Zipcode Phone Number [address]N [address] [place] [address] Gram stain (03/07/2019 11:27 AM CDT) Gram stain result No WBC's [facility] Occasional Gram positive rods [facility] Comment: Specimen Information Specimen Source: Urine Specimen Site: Clean catch Specimen Urine Performing Organization Address [facility] Phone Number [facility] DEPARTMENT OF PATHOLOGY AND [address] [place] [id number] [place] [id number] Urine culture (03/07/2019 11:27 AM CDT) Urine culture Mixed prince >10-5 col/cc [facility] isolate Mixed prince 10-5 col/cc [facility] Comment: Specimen Information Specimen Source: Urine Specimen Site: Clean catch Specimen Urine Performing Organization Address [facility] Phone Number [facility] DEPARTMENT OF PATHOLOGY AND [address] [place] [address] Urinalysis screen and microscopy, with reflex to culture (03/07/2019 10:55 AM CDT) Specimen site Clean catch [facility] Color, UA Yellow [facility] Appearance, UA Sl Cloudy [facility] Specific gravity, UA 1.013 1.001 - 1.030 [facility] pH, UA 6.0 5.0 - 9.0 [facility] Protein, UA Negative Negative [facility] Glucose, UA Negative Negative [facility] Ketones, UA Negative Negative [facility] Bilirubin, UA Negative Negative [facility] Blood, UA Small (A) Negative [facility] Nitrite, UA Negative Negative [facility] Urobilinogen, UA <2.0 <2.0 E.U./dL [facility] Leukocyte esterase, Trace (A) Negative [facility] Epithelial cells, UA 11 /HPF [facility] WBC, UA 1 0 - 4 /HPF [facility] RBC, UA 1 0 - 5 /HPF [facility] Bacteria, UA Few None seen [facility] Yeast, UA None seen [facility] Yeast with None seen [facility] pseudohyphae, [facility] Specimen Urine Performing Organization Address City/State/Zipcode Phone Number [facility] DEPARTMENT OF PATHOLOGY [id number] [place] [address] Estimated GFR (03/07/2019 10:55 AM CDT) Estimated GFR >=90 mL/min/1.73 [facility] Comment: m2 [place] [facility]its[facility]pretation [facility] G1 >=90 Normal or high G2 60-89Mildly decreased [id number] to moderately decreased [id number] to severely decreased G4 15-29Severely decreased G5 <15Kidney failure The eGFR was calculated using the Chronic Kidney Disease Epidemiology Collaboration (CKD-EPI) equation. Interpretation is based on recommendations of the National Kidney Foundation-Kidney Disease Outcomes Quality Initiative (NKF-KDOQI) published in 2014. Specimen Plasma specimen Performing Organization Address City/[facility]/Zipcode Phone Number [facility] DEPARTMENT OF PATHOLOGY [id number] [place] [address] CBC with platelet and differential (03/07/2019 10:55 AM CDT) WBC 7.6 4.5 - 11.0 k/uL [facility] RBC 4.67 4.20 - 5.50 [facility] m/uL [facility] HGB 14.0 12.0 - 16.0 [facility] g/dL [facility] HCT 42.8 37.0 - 47.0 % [facility] MCV 91.6 82.0 - 100.[address] [facility] MCH 30.0 27.0 - 34.[address] [facility] MCHC 32.7 31.0 - 37.0 [facility] g/dL [facility] RDW - SD 40.6 37.0 - 55.[address] [facility] MPV 11.2 (H) 6.9 - 11.[address] [facility] Platelet count 216 150 - 400 K/uL [facility] Nucleated RBC 0.00 /[address] [facility] Neutrophils 62.2 39.0 - 69.0 % [facility] Lymphocytes 30.2 25.0 - 45.0 % [facility] Monocytes 6.1 0.0 - 10.0 % [facility] Eosinophils 0.9 0.0 - 5.0 % [facility] Basophils 0.5 0.0 - 1.0 % [facility] Immature granulocytes 0.1 0.0 - 1.0 % [facility] Specimen Blood Performing Organization Address City/[facility]/Zipcode Phone Number [facility] DEPARTMENT OF PATHOLOGY [address] [place] [address] [place] [address] HOSPITAL Lipase level (03/07/2019 10:55 AM CDT) Lipase 27 13 - 60 U/L [facility] Specimen Plasma specimen Performing Organization Address City/[facility] Phone Number [facility] DEPARTMENT OF PATHOLOGY [address] [place] [address] Comprehensive metabolic panel (03/07/2019 10:55 AM CDT) Sodium 139 135 - 148 mEq/L [facility] Potassium 4.1 3.5 - 5.0 mEq/L [facility] Chloride 100 98 - 112 mEq/L [facility] CO2 26 24 - 31 mEq/L [facility] Anion gap 13@ANIO 7 - 15 mEq/L [facility] BUN 7 6 - 20 mg/dL [facility] Creatinine 0.54 0.50 - 0.90 [facility]/dL [facility] Glucose 114 (H) 65 - 99 mg/dL [facility] Calcium 9.8 8.3 - 10.2 mg/dL [facility] Protein 8.3 6.3 - 8.3 g/dL [facility] Albumin 4.9 3.5 - 5.0 g/dL [facility] A/G ratio 1.4 0.7 - 3.8 [facility] Alkaline phosphatase 79 35 - 104 U/L [facility] AST 22 10 - 35 U/L [facility] ALT 22 5 - 50 U/L [facility] Total bilirubin 0.4 0.2 - 1.2 mg/dL [facility] Specimen Plasma specimen Performing Organization Address City/State/Zipcode Phone Number [facility] DEPARTMENT OF PATHOLOGY [address] [place] [address] AND GENOMIC MEDICINE [facility] [address] [place] [address] HOSPITAL after 03/27/2018 Advance Directives Patient has advance care planning documents on file. For more information, please contact:[id number] [place] [address]
--- OUTSIDE RECORDS SUMMARY | 2019-03-28 06:37 | XMS REPORT ---
:1975 Author [facility] Address [address] [place] [address] Dr. Weber [address] [place] [address] Care Team Providers Name Role Phone Unavailable Unavailable Unavailable Problems This patient has no known problems. Allergies, Adverse Reactions, Alerts This patient has no known allergies or adverse reactions. Medications This patient has no known medications.
[2019-03-28] MEDS ORDERED: PROPOFOL 200 MG/20 ML VIAL IV ONE (07:08)
[2019-03-28] MEDS ORDERED: MIDAZOLAM HCL 2 MG/2 ML INJ ONE (07:09)
[2019-03-28] MEDS ORDERED: GLYCOPYRROLATE 0.2 MG/ML SYR ONE ×3 (07:09→08:40)
[2019-03-28] MEDS ORDERED: LIDOCAINE 2% MPF 5 ML VIAL ONE (07:10)
[2019-03-28] MEDS ORDERED: FENTANYL CITR 250 MCG/5 ML ONE (07:11)
[2019-03-28] MEDS ORDERED: ROCURONIUM 50 MG/5 ML VIAL IV ONE (07:14)
[2019-03-28] MEDS ORDERED: NEOSTIGMINE 1 MG/ML -10 ML VIAL ONE (07:14)
[2019-03-28] MEDS ORDERED: ONDANSETRON 4 MG/2 ML VIAL ONE (07:14)
[2019-03-28] MEDS ORDERED: Ringers Lactate 1,000 ML IV ONE (07:18)
[2019-03-28] MEDS ORDERED: SCOPOLAMINE HYDROBROMIDE PATCH TD ONE (07:18)
[2019-03-28] MEDS ORDERED: EPHEDRINE SULF 50 MG/ML VIAL ONE (08:15)
[2019-03-28] MEDS: Ringers Lactate 1,000 ML IV ONE ×2 (08:44→09:09)
[2019-03-28] MEDS ORDERED: FENTANYL CITR 100 MCG/2 ML ONE (09:23)
[2019-03-28] MEDS ORDERED: KETOROLAC 30 MG/ML INJ ONE (09:36)
[2019-03-28] MEDS: MEPERIDINE HCL 50 MG/ML AMP ONE ×4 (10:02→10:24)
[2019-03-28] MEDS ORDERED: HYDROCODONE/APAP 5/325 MG TAB ONE (11:37)
[2019-03-28 12:14] VITALS: BP 105/63; TEMP 98.2; O2SAT 98
--- NOTE | 2019-03-28 21:54 | OP ---
Date of Procedure: 03/28/2019 Surgeon: Zhanna Vera MD International Project Manager: Sharron Piña. Preoperative Diagnosis: Pelvic pain possible left hydrosalpinx. Postoperative Diagnoses: Pelvic pain possible left hydrosalpinx, dense sigmoid adhesions, abdominopl asty scar adhesions, normal right tube and ovary, supracervical hysterectomy and absent uterus. Procedures Performed: 1.Diagnostic laparoscopy, difficult entry into the peritoneal cavity. 2.Extensive lysis of adhesions. Estimated Blood Loss: Minimal. Specimens: No specimens. Complications: No complications. Drains: No drains. Condition: Stable. Indications: The patient is a 43-year-old 4, para 2-1-1-3. She presented with pelvic pain. The last procedure patient had was an abdominoplasty in 2012, prior to that she had a hyste rectomy in 2010. There was an incidental cystotomy. The patient had an emergency section f or placenta accreta was then later transferred due to difficulty to complete the procedure to [facility] in [place], where she had a hysterectomy. Two years later had her abdominoplasty. Has been complaining of pelvic pain intermittently. Recently she had a workup for this. She had seen [facility] roenterologist for workup of her pain and both were negative. She has had history of constipation; h owever, still unrelieved. On the CT scan recently this year when she was referred to me by her PCP, Belkis Rahman. She had left hydrosalpinx. On evaluation in the office, she seemed to have tende rness in the pelvic area. No palpable mass noted on examination. Discussed with the patient the opt ions of observation and medical treatment with Depo versus surgical treatment for diagnostic laparosc opy if the hydrosalpinx was the reason for pain that be would evaluate remove the tubes for sure and remove 1 or both ovaries depending on the pathology found, if it would be presumed to be contributing to her pain then the ovaries would be removed. Otherwise, since she is an only 43 years old, we wou ld leave the ovaries alone. Description Of Procedure: After informed consent was verified, patient was taken back to the OR, divine leydi in supine fashion on the operating table. After general anesthesia was given, she was placed in a dorsal lithotomy position using Elio stirrups. Pelvic exam performed. Cervix small, anterior lip very minimal or absent. No pelvic mass noted. Abdomen, vulva, vagina, and perineum were prepped and draped in a sterile fashion. Spears was placed to drain the bladder and attached to cysto tubing for retrograde filling to an LR bag, emptied 300. This was fixed in place. Sponge on a stick was placed in the vagina for retraction. A 1 cm supraumbilical incision was made in a curvilinear fashion along the abdominoplasty scar in the periumbilical region. Then, dissection was carried to the fascia above it. The fascia was incised with a 15 blade in 2 layers. There was a Prolene stitch that had to be cut, which probably was used to plicate the upper abdominal fascia in a vertical fashion along the midline. The suture was detach ed from the umbilical stitch, it was tied to, the knots were left at the umbilicus as plicated and th e top 2 sutures that were plicating the anterior abdominal wall above the level of the umbilicus were tied the knots so that the whole string would not come loose. Then, once the fascia was cleared here, it was incised in 2 layers, 0 Vicryl sutures were placed. Af ter placing my finger through, I felt like the peritoneal cavity was entered and so I placed my Hasso n trocar in placed, fix it, insufflated with CO2. There is optimal distention, so went ahead and put my 10 mm 30 degree lens in, but this did not appear to be peritoneal, so this was removed. Had the assistance of Dr. Abernathy's, who was able to pull up the posterior layer of the rectus sheath, incis ed that, then placed the port after getting into the peritoneum, then introducing the Everardo. Perito adria entry was verified, then he left the case. After checking the intraabdominal cavity, there were adhesions starting from about 3 cm inferior to t he umbilicus all the way down to the level of her prior scar. There appears to be a small d efect on the left half of the scar, most likely in which the sigmoid colon has gotten stuck. A 5 mm left lower quadrant and right lower quadrant ports were placed under direct vision for keyur r visualization and evaluation of the problem. After this was done without any problems, systematically took down the adhesions of the omentum to th e anterior abdominal wall with push-spread technique, opening and cutting with scissors. The bipolar LigaSure was used as needed for cautery. Once the dissection was carried further down after lorraine watts the 10 to 5 camera and using the right lower quadrant port to visualize the colon, I could clearly define the extent of the adhesions of the sigmoid colon which were about 10 cm diagonally connecting the midline to the anterior superior iliac spine. So, this entire area of the colon had been slapped up and then started with adhesions at the descending colon to the lateral wall, then the natural att achments followed by the pull-up of the entire sigmoid colon to the anterior abdominal wall. The patient was placed in steep Trendelenburg. Small bowel was retracted with its mesentery into the upper abdominal cavity. After inspecting the upper abdominal cavity, the gallbladder and peritoneal surfaces were all unremarkable when this was done. The right tube and ovary were attached to the in fundibulopelvic ligament very high in the pelvis. There was scar of the small bowel just lateral to the IP ligament. Despite the presence of the scar I was able to clearly visualize the tube and ovary and they had filmy adhesions around them, but nothing that would indicate any dilation of the tumor or abnormality of the ovary, so this was left in place. On the left side, attempt was made to identify the left pelvic sidewall; however, this needed dissect ion of the colon, so started at the level of the descending colon push-spread technique was used to s eparate the colon from the anterior abdominal wall. The dissection was performed with scissors to ta ke this down. Once this all taken down to the level of the natural attachment, I was still not able to visualize the left tube and ovary because the sigmoid was really pulled up anteriorly. Careful pu sh-spread technique was used to get to the level of the colon to see if this could be dissected down. Dr. Abernathy's came back in to give an opinion about the difficulty of take down at this time. He felt that it would be optimal for the patient safety to have a bowel prep and return back to the OR f or takedown of this colon. There was an injury that could be repaired at the time. Once this was de emed to be the future plan thorough irrigation and suction were performed, both trocars were removed under direct visualization. No evidence of any trauma to the colon. The dissection was stopped righ t there. The posterior wall of the rectus sheath was absent in this area and the rectus muscle was d irectly attached to the sigmoid colon. This could be due to the defect created as a result of a Pfan nenstiel scar and its extension, so there could be beginning of a hernia due to the absence of the sh eath. This was just in the top one half of the anterior abdominal wall below the umbilicus, so proba kirsten not the natural loss of the posterior sheath. So, the further evaluation with the surgeon for pr esence of a hernia and need for hernia repair if desired would be done. After all pictures were taken adequately, all the trocars were removed, gas was desufflated. Fascia at the umbilicus was closed with the help of a 0 PDS in a exdhsa-ld-zykgd fashion and then the tag mcarthur tures were tied together with Vicryl. Subcutaneous suture x1 with a simple 0 Vicryl stitch and subcu ticular sutures with 4-0 Vicryl in all incisions. Spears and the sponge on a stick were removed. Ins trument, needle, and sponge counts were done and were correct at the end of the case. The patient wi ll be recovered from anesthesia and taken to PACU in stable condition. She will follow up with me in 1 week in the office and later we will refer her to Dr. Abernathy's and we will take a look at her le ft ovary and tube when he takes the colon down. MAMTA/MATT Voice ID: [id number] Report ID: [id number]
== END 2019-03-28 12:00 | disposition home or self-care (01) ==
LOC: PRE 06:34
PROVIDERS: ATTEND Obstetrics & Gynecology
PROC: 0DNU4ZZ Release Omentum, Percutaneous Endoscopic Approach (ICD-10-PCS; principal; 2019-03-28 07:30)
DX: K66.0 Peritoneal adhesions (postprocedural) (postinfection) (principal); R10.2 Pelvic and perineal pain; Z90.710 Acquired absence of both cervix and uterus; N95.1 Menopausal and female climacteric states; K21.9 Gastro-esophageal reflux disease without esophagitis
CPT/HCPCS: 36415; 81003; 81015; 85025; 86850; 86900; 86901; J2175; J2250; J2405; J2704; J2710; J3010

== ENCOUNTER 2023-06-15 08:09 | Emergency (ER) | payer SELFPAY ==
--- OUTSIDE RECORDS SUMMARY | 2023-06-15 08:24 | XMS REPORT | Continuity of Care Document ---
:1975 Author Organization [facility] t Address [address] [place] [address] [address] [place] [address] Care Team Providers Name Role Phone Shira Holt PA-C Primary Care Physician EDWIN VALENTIN Attending Clinician Unavailable LAB90 Attending Clinician Unavailable SHIRA HOLT Attending Clinician Unavailable Shira Holt PA-C Attending Clinician KALIA DENNIS Attending Clinician Unavailable Doctor Unassigned, [place] Attending Clinician Unavailable Davina De La Torre MD Attending Clinician DAVINA DE LA TORRE Attending Clinician Unavailable OPHELIA ZEPEDA Attending Clinician Unavailable OPHELIA ZEPEDA Attending Clinician Unavailable SERA NEWELL Attending Clinician Unavailable LEE Attending Clinician Unavailable ROSA Attending Clinician Unavailable Luis Angel Alegria Attending Clinician [phone] KAYCEE VICENTE Attending Clinician Unavailable ROSITA MEIER Attending Clinician Unavailable ROMEL RUDOLPH Attending Clinician Unavailable SHIRA HOLT Admitting Clinician Unavailable OPHELIA ZEPEDA Admitting Clinician Unavailable LEE Admitting Clinician Unavailable ROSA Admitting Clinician Unavailable Payers Payer Name Policy Type Policy Number Effective Date Expiration Date S [facility] - [id number] 2020 00:00:00 OUT OF STATE BCBS 2 [id number] 2022 00:00:00 [place] [id number] 2020 00:[place]:00 [place] Problems Condition Condition Condition Status Onset Resolution Last Treating Co mments Source Name Details Category Date Date Treatment Clinician Date Bronchitis Bronchitis Disease Active 2021-10 K elsey 1-29 Seybold 00:00: - 00 Externa l History of History of Disease Active 2021-10 U nivers endometrio endometrio 1-07 it y of sis sis 00:00: [place] 00 Medical Branch Chronic Chronic Disease Active 2021-10 Univers salpingiti salpingiti 1-07 it y of s and s and 00:00: [place] oophoritis oophoritis 00 Ks dical Branch BMI BMI Disease Active 2021-10 Univers 25.0-25.9, 25.0-25.9, 1-07 it y of adult adult 00:00: [place] 00 Medical Branch Pain Pain Disease Active 2021-10 Univers pelvic pelvic 0-29 ity of 00:00: [place] 00 Medical Branch Left Left Disease Active 2021-10 Univers ovarian ovarian 0-29 ity of cyst cyst 00:00: [place] 00 Medical Branch History of History of Disease Active 2021-10 U nivers hysterecto hysterecto 0-29 it y of my my 00:00: [place] 00 Medical Branch History of History of Disease Active 2021-10 U nivers bladder bladder 0-29 ity of repair repair 00:00: [place] surgery surgery 00 Medical Branch History of History of Disease Active 2021-10 U nivers placenta placenta 0-29 ity of accreta accreta 00:00: [place] 00 Medical Branch Left Left Disease Active 2021-10 [facility] ovarian ovarian 0-21 Seybold cyst cyst 00:00: - 00 Externa l History of History of Disease Active 2021-10 K elsey endometrio endometrio 0-21 Se ybold sis sis 00:00: - 00 Externa l Left lower Left lower Disease Active 2021-10 K elsey quadrant quadrant 0-21 Seybol d abdominal abdominal 00:00: - pain pain 00 Externa l Primary Primary Disease Active 2021-10 [facility] hypertensi hypertensi 0-21 Se ybold on on 00:00: - 00 Externa l Prediabete Prediabete Disease Active 2021-10 K elsey s s 0-21 Seybold 00:00: 00 Externa l Chronic Chronic Disease Active 2021-10 [facility] constipati constipati 0-21 Se ybold on on 00:00: - 00 Externa l OAB OAB Disease Active Univers (overactiv (overactiv 1-27 it y of e bladder) e bladder) 00:00: [place] [facility] [place] Essential Essential Disease Active Uni vers hypertensi hypertensi 8-27 it y of on on 00:00: [place] [facility] Lower Lower Disease Active Univers abdominal abdominal 7- ity of adhesions adhesions [facility] Chronic Chronic Disease Active Univers constipati constipati 7 it y of on on 00:00: [place] [facility] Prediabete Prediabete Disease Active U nivers s s 7- ity of 00:00: [place] Medical [facility] Mixed Mixed Disease Active Univers hyperlipid hyperlipid 04-30 it y of emia emia 00:00: [place] [facility] Pelvic Pelvic Disease Active Univers fluid fluid 4-04 ity of collection collection 00:00: [place] [facility] [place] Encounter Encounter Disease Active Overview: Univers for for 1-15 Formattin ity of routine routine 00:00: g of this [place] gynecologi gynecologi 00 note Me dical lianna lianna might be Branch examinatio examinatio different n n from the original. 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 Depression Depression Disease Active U nivers 1-15 ity of 00:00: Medical Branch Generalize Generalize Disease Active U nivers d anxiety d anxiety -15 ity of disorder disorder 00:00: [place] [facility] Mixed Mixed Disease Active Univers incontinen incontinen 1-15 it y of ce ce 00:00: [place] [address] Medical Branch Allergies, Adverse Reactions, Alerts Allergy Allergy Status Severity Reaction(s) Onset Inactive Treating Comm ents Source Name Type Date Date Clinician Atorvast Propensi Active Other myalgias Josette ey atin ty to 04-29 Seybold adverse 00:00: - reaction 00 Externa s l ATORVAST DRUG Active Low Other-Cmnt Univ ers ATIN INGREDI 04-29 ity of 00:00: [place] Medical Branch Atorvast Propensi Active Other - See myalgias m Univers atin ty to comments 04-29 yalgias ity of adverse 00:00: [place] reaction 00 Medical s Branch NO KNOWN Drug Active Univers ALLERGIE Class ity of S [facility] Social History Social Habit Start Date Stop Date Quantity Comments Source Gender identity [facility] Sexual orientation [facility] History SDOH [facility] Seybo ld - Alcohol Frequency Externa l History SDOH [facility] Seybo ld - Alcohol Std Drinks Copy Messenger al History SDOH [facility] Seybo ld - Alcohol Binge External Exposure to 2022-11-27 2022-12-07 Not sure University SARS-CoV-2 (event) 00:00:00 09:53:00 [facility] Tobacco use and 2022-08-09 2022-08-09 Smokeless Universit y of exposure 00:00:00 00:00:00 tobacco non-user [facility] Alcohol Comment 2022-07-23 2022-07-23 social [facility] Se ybold - 00:00:00 00:00:00 External History of Social 2019-05-24 2019-05-[address] function 00:00:00 00:00:00 Hospital Alcohol intake 2019-03-07 2019-03-07 Current drinker [facility] 00:00:00 00:00:00 of alcohol Hospital (finding) History of tobacco 2007-01-03 Cigarette Smoker University of use 00:00:00 [facility] Sex Assigned At [birth year] [facility] 00:[facility] Smoking Status Start Date Stop Date Source Ex-smoker 2022-08-09 00:00:00 2022-08-09 00:00:00 [facility] Never smoked tobacco [facility] Seyb old - External Medications Ordered Filled Start Stop Current Ordering Indication Dosage Frequency Signature Comments Components Source Medication Medication Date Date Medication? Clinician (SIG) Name Name Sertraline Yes [id number] 25mg Take 1 K elsey HCl 25 MG 6-19 tablet (25 Seyb old oral Tablet 00:00: mg total) - 00 by mouth Externa daily l LISINOPRIL- Yes [id number] 1{tbl} Take 1 [facility] HCTZ 6-19 tablet by Seybold 20-12.5 MG 00:00: mouth - oral Tablet 00 daily Externa l linaCLOtide Yes [id number] 145ug QD Take 1 [facility] (Linzess) 6-19 capsule Seybold 145 MCG 00:00: (145 mcg - oral 00 total) by Externa Capsule mouth l daily as needed diazePAM 2 2022- No TAKE 1 TO K elsey MG oral -12 06-19 2 TABLETS Seybol d Tablet 00:00: 00:00 BY MOUTH - 00 :00 THREE Externa TIMES l DAILY NEEDED FOR ANXIETY LISINOPRIL- 2022- No [id number] 1{tbl} Take 1 [facility] HCTZ 5-05 06-19 tablet by Seybold 10-12.5 MG 00:00: 00:00 mouth - oral Tablet 00 :00 daily Externa l pantoprazol 2022- No 40mg Take 40 mg Univers e 40 mg EC 12-07 by mouth ity of tablet 10:58: 00:00 daily. [place] : [facility] pantoprazol 2022- No 40mg Take 40 mg Univers e 40 mg EC 12-07 by mouth ity of tablet 10:58: 00:00 daily. [place] 02 :00 [facility] estradioL Yes [id number] Insert 2 g Univers (ESTRACE) 12-07 vaginal ity of 0.01 % (0.1 00:00: daily x 2 [place] mg/gram) 00 wks, then Medica l vaginal insert PV Branch cream twice weekly. estradioL 1 2022-0 Yes [id number] 1mg Take 1 Univers mg tablet 3-07 tablet by ity o f 00:00: mouth in [place] 00 the Medical morning. Branch estradioL 2022-0 Yes [id number] Insert 2 g Univers (ESTRACE) 3-07 vaginal ity of 0.01 % (0.1 00:00: daily x 2 [place] mg/gram) 00 wks, then Medica l vaginal insert PV Branch cream twice weekly. estradioL 1 2022-0 Yes [id number] 1mg Take 1 Univers mg tablet 3-07 tablet by ity o f 00:00: mouth in [place] 00 the Medical morning. Branch estradioL Yes [id number] Insert 2 g Univers (ESTRACE) 3-07 vaginal ity of 0.01 % (0.1 00:00: daily x 2 [place] mg/gram) 00 wks, then Medica l vaginal insert PV Branch cream twice weekly. estradioL 1 Yes [id number] 1mg Take 1 Univers mg tablet 3-07 tablet by ity o f 00:00: mouth in [place] 00 the Medical morning. [place] gadobenate 202- No [id number] .2mL/kg 0.2 mL/kg, Univers dimeglumine 11-19 Intravenou i ty of (MULTIHANCE 16:30: 16:26 s, ONCE, 1 [place] -15 mL) 00 :00 dose, On Medical injection Fri [place] 0.2 mL/kg 11/19/22 at 1030, Routine pantoprazol 2022-0 Yes 40mg Take 40 mg Univers e 40 mg EC 1-19 by mouth ity o f tablet 09:44: daily. [address] pantoprazol 2022-0 Yes 40mg Take 40 mg Univers e 40 mg EC 1-19 by mouth ity o f tablet 09:44: daily. [address] pantoprazol 2022-0 Yes 40mg Take 40 mg Univers e 40 mg EC 1-19 by mouth ity o f tablet 09:44: daily. [address] pantoprazol 2022-0 Yes 40mg Take 40 mg Univers e 40 mg EC 1-19 by mouth ity o f tablet 09:44: daily. [address] pantoprazol Yes 40mg Take 40 mg Univers e 40 mg EC 1-19 by mouth ity o f tablet 09:44: daily. [address] pantoprazol Yes 40mg Take 40 mg Univers e 40 mg EC 1-19 by mouth ity o f tablet 09:44: daily. [address] Triamcinolo 2021-10- No [id number] 40mg K elsey ne 10-31 Seybold Acetonide 17:45: 17:45 - (KENALOG) 00 :00 Externa 40 mg/mL l Triamcinolo 2021-10- No [id number] 40mg 40 mg, [facility] ne 10-31 intramuscu Seybold Acetonide 17:45: 17:45 lar, ONCE, - (KENALOG) 00 :00 On Tue Externa 40 mg/mL 08/31/22 l at 1145, For 1 dose Albuterol 2021-10 Yes [id number] 2{puff} Q.25D Inhale 2 [facility] HFA 108 (90 1-29 puffs into Se ybold Base) 00:00: the lungs - MCG/ACT IN 00 every 6 Copy Messenger a AERS hours as l needed for wheezing Benzonatate 2021-10 Yes [id number] 100mg Q.[id number] Take 1 [facility] (Tessalon 10-31 [id number] capsule S eybold Perles) 100 00:00: 3D (100 mg - MG oral 00 total) by Externa Capsule mouth 3 l times daily as needed for cough Albuterol 2021-10 Yes [id number] 2{puff} Q.25D Inhale 2 [facility] HFA 108 (90 1-29 puffs into Se ybold Base) 00:00: the lungs - MCG/ACT IN 00 every 6 Copy Messenger a AERS hours as l needed for wheezing Benzonatate 2021-10- No [id number] 100mg Q.[id number] Take 1 [facility] (Tessalon -31 03-19 [id number] capsule Seybold Perles) 100 00:00: 00:00 3D (100 mg - MG oral 00 :00 total) by Externa Capsule mouth 3 l times daily as needed for cough Azithromyci 2021-10- No [id number] Take 2 [facility] n 250 MG 1-29 12-05 tablets by Seyb old oral Tablet 00:00: 05:59 mouth on - 00 :00 day 1 then Externa 1 tablet l by mouth daily for 4 days thereafter . Est 2021-10- No 1{tbl} Take 1 [facility] Estrogens-M 1-15 11-15 tablet by Se ybold ethyltest 09:55: 00:00 mouth - 1.25-2.5 MG 21 :00 daily Externa oral Tablet l Pseudoeph-B 2021-10 Yes [id number] 10mL Q.25D Take 10 mL [facility] romphen-DM 1-15 by mouth 4 Sey bold (Bromfed 00:00: times - DM) 30-2- 00 daily as Exte rna MG/5ML oral needed l Syrup Amoxicillin 2021-10 Yes [id number] 1{tbl} Take 1 [facility] -Pot 1-15 tablet by Seybold Clavulanate 00:00: mouth 2 - 875-125 MG 00 times Externa oral Tablet daily l Amoxicillin 2021-10- No [id number] 1{tbl} Take 1 [facility] -Pot 1-15 11-29 tablet by Seybold Clavulanate 00:00: 00:00 mouth 2 - 875-125 MG 00 :00 times Externa oral Tablet daily l Pseudoeph-B 2021-10- No [id number] 10mL Q.25D Take 10 mL [facility] romphen-DM 1-15 11-29 by mouth 4 Se ybold (Bromfed 00:00: 00:00 times - DM) 302- 00 :00 daily as Exte rna MG/5ML oral needed l Syrup linaCLOtide 2021-10 Yes [id number] 145ug Take 1 [facility] (Linzess) 0-21 capsule Seybold 145 MCG 00:00: (145 mcg - oral 00 total) by Externa Capsule mouth l daily linaCLOtide 2021-10 Yes [id number] 145ug Take 1 [facility] (Linzess) 0-21 capsule Seybold 145 MCG 00:00: (145 mcg - oral 00 total) by Externa Capsule mouth l daily LINZESS 145 2021-10 Yes Univer s mcg capsule 0-21 ity of 00:00: [place] 00 Medical Branch LINZESS 145 2021-1 Yes Univer s mcg capsule 0-21 ity of 00:00: [place] 00 Medical Branch LINZESS 145 2021-1 Yes Univer s mcg capsule 0-21 ity of 00:00: [place] 00 Medical Branch LINZESS 145 2021-1 Yes Univer s mcg capsule 0-21 ity of 00:00: [place] 00 Medical Branch LINZESS 145 2021-1 Yes Univer s mcg capsule 0-21 ity of 00:00: [place] 00 Medical Branch LINZESS 145 2021-1 Yes Univer s mcg capsule 0-21 ity of 00:00: [place] 00 Medical Branch LINZESS 145 2021-1 Yes Univer s mcg capsule 0-21 ity of 00:00: [place] 00 Medical Branch LINZESS 145 2021-1 Yes Univer s mcg capsule 0-21 ity of 00:00: [place] 00 Medical Branch LINZESS 145 2021-1 Yes Univer s mcg capsule 0-21 ity of 00:00: [place] 00 Medical Branch LINZESS 145 2021-1 Yes Univer s mcg capsule 0-21 ity of 00:00: [place] 00 Medical Branch LINZESS 145 2021-1 Yes Univer s mcg capsule 0-21 ity of 00:00: [place] 00 Medical Branch LINZESS 145 2021-1 Yes Univer s mcg capsule 0-21 ity of 00:00: [place] 00 Medical Branch LINZESS 145 2021-1 Yes Univer s mcg capsule 0-21 ity of 00:00: [place] 00 Medical Branch LINZESS 145 2021-1 Yes Univer s mcg capsule 0-21 ity of 00:00: [place] 00 Medical Branch LINZESS 145 2021-1 Yes Univer s mcg capsule 0-21 ity of 00:00: [place] 00 Medical Branch linaCLOtide 2021-1 3- No [id number] 145ug Take 1 [facility] (Linzess) 0-21 06-19 capsule Seybol d 145 MCG 00:00: 00:00 (145 mcg - oral 00 :00 total) by Externa Capsule mouth l daily LINZESS 145 2021-2022- No Unive rs mcg capsule 0-21 03-07 ity of 00:00: 00:00 [place] 00 :00 Medical Branch LINZESS 145 2021-10- No Unive rs mcg capsule 0-21 -07 ity of 00:00: 00:00 [place] 00 :00 Medical Branch LISINOPRIL- 2021-0 Yes 1{tbl} Take 1 [place] HCTZ 9-19 tablet by Seybold 10-12.5 MG 00:00: mouth - oral Tablet 00 daily Externa l LISINOPRIL- 2021-0 Yes 1{tbl} Take 1 [place] HCTZ 9-19 tablet by Seybold 10-12.5 MG 00:00: mouth - oral Tablet 00 daily Externa l lisinopriL- 2021-0 Yes 1{tbl} Take 1 Un yenni hydrochloro 9-19 tablet by ity of thiazide 00:00: mouth [place] 10-12.5 mg 00 every Medical per tablet morning. Branc h lisinopriL- 2021-0 Yes 1{tbl} Take 1 Un yenni hydrochloro 9-19 tablet by ity of thiazide 00:00: mouth [place] 10-12.5 mg 00 every Medical per tablet morning. Branc h lisinopriL- 2021-0 Yes 1{tbl} Take 1 Un yenni hydrochloro 9-19 tablet by ity of thiazide 00:00: mouth [place] 10-12.5 mg 00 every Medical per tablet morning. Branc h lisinopriL- 2021-0 Yes 1{tbl} Take 1 Un yenni hydrochloro 9-19 tablet by ity of thiazide 00:00: mouth [place] 10-12.5 mg 00 every Medical per tablet morning. Branc h lisinopriL- 2021-0 Yes 1{tbl} Take 1 Un yenni hydrochloro 9-19 tablet by ity of thiazide 00:00: mouth [place] 10-12.5 mg 00 every Medical per tablet morning. Branc h lisinopriL- 2021-0 Yes 1{tbl} Take 1 Un yenni hydrochloro 9-19 tablet by ity of thiazide 00:00: mouth [place] 10-12.5 mg 00 every Medical per tablet morning. Branc h lisinopriL- 2021-0 Yes 1{tbl} Take 1 Un yenni hydrochloro 9-19 tablet by ity of thiazide 00:00: mouth [place] 10-12.5 mg 00 every Medical per tablet morning. [facility] h lisinopriL- 2021-0 Yes 1{tbl} Take 1 Un yenni hydrochloro 9-19 tablet by ity of thiazide 00:00: mouth [place] 10-12.5 mg 00 every Medical per tablet morning. [facility] h lisinopriL- 2021-0 Yes 1{tbl} Take 1 Un yenni hydrochloro 9-19 tablet by ity of thiazide 00:00: mouth [place] 10-12.5 mg 00 every Medical per tablet morning. [facility] h lisinopriL- 2021-0 Yes 1{tbl} Take 1 Un yenni hydrochloro 9-19 tablet by ity of thiazide 00:00: mouth [place] 10-12.5 mg 00 every Medical per tablet morning. [facility] lisinopriL- 2021-0 Yes 1{tbl} Take 1 Un yenni hydrochloro 9-19 tablet by ity of thiazide 00:00: mouth [place] 10-12.5 mg 00 every Medical per tablet morning. [facility] lisinopriL- 2021-0 Yes 1{tbl} Take 1 Un yenni hydrochloro 9-19 tablet by ity of thiazide 00:00: mouth [place] 10-12.5 mg 00 every Medical per tablet morning. [facility] lisinopriL- 2021-0 Yes 1{tbl} Take 1 Un yenni hydrochloro 9-19 tablet by ity of thiazide 00:00: mouth [place] 10-12.5 mg 00 every Medical per tablet morning. [facility] lisinopriL- 2021-0 Yes 1{tbl} Take 1 Un yenni hydrochloro 9-19 tablet by ity of thiazide 00:00: mouth [place] 10-12.5 mg 00 every Medical per tablet morning. [facility] h lisinopriL- 2021-0 Yes 1{tbl} Take 1 Un yenni hydrochloro 9-19 tablet by ity of thiazide 00:00: mouth [place] 10-12.5 mg 00 every Medical per tablet morning. [facility] h Metformin 0 Yes 1{tbl} Take 1 Josette ey HCl 500 MG 9- tablet by Seyb old oral Tablet 00:00: mouth in - 00 the Externa morning l and 1 tablet in the evening. Take with meals. Metformin 2022-0 Yes 1{tbl} Take 1 Josette ey HCl 500 MG 9-01 tablet by Seyb old oral Tablet 00:00: mouth in - 00 the Externa morning l and 1 tablet in the evening. Take with meals. Metformin 2022-0 Yes 500mg Take 1 Kelse y HCl 500 MG 9-01 tablet Seybold oral Tablet 00:00: (500 mg - 00 total) by Externa mouth in l the morning and 1 tablet (500 mg total) in the evening. Take with meals. metFORMIN 2022-0 Yes 1{tbl} Take 1 Univ ers 500 mg 9-01 tablet by ity of tablet 00:00: mouth. [address] metFORMIN 2022-0 Yes 1{tbl} Take 1 Univ ers 500 mg 9-01 tablet by ity of tablet 00:00: mouth. [address] metFORMIN 2022-0 Yes 1{tbl} Take 1 Univ ers 500 mg 9-01 tablet by ity of tablet 00:00: mouth. [address] metFORMIN 2022-0 Yes 1{tbl} Take 1 Univ ers 500 mg 9-01 tablet by ity of tablet 00:00: mouth. [address] metFORMIN 2022-0 Yes 1{tbl} Take 1 Univ ers 500 mg 9-01 tablet by ity of tablet 00:00: mouth. [address] metFORMIN 2022-0 Yes 1{tbl} Take 1 Univ ers 500 mg 9-01 tablet by ity of tablet 00:00: mouth. [address] metFORMIN 2022-0 Yes 1{tbl} Take 1 Univ ers 500 mg 9-01 tablet by ity of tablet 00:00: mouth. [address] metFORMIN 2022-0 Yes 1{tbl} Take 1 Univ ers 500 mg 9-01 tablet by ity of tablet 00:00: mouth. [address] metFORMIN 2022-0 Yes 1{tbl} Take 1 Univ ers 500 mg 9-01 tablet by ity of tablet 00:00: mouth. [address] metFORMIN 2022-0 Yes 1{tbl} Take 1 Univ ers 500 mg 9-01 tablet by ity of tablet 00:00: mouth. [address] metFORMIN 2022-0 Yes 1{tbl} Take 1 Univ ers 500 mg 9-01 tablet by ity of tablet 00:00: mouth. Medical Branch metFORMIN 2022-0 Yes 1{tbl} Take 1 Univ ers 500 mg 9-01 tablet by ity of tablet 00:00: mouth. Medical Branch metFORMIN 2022-0 Yes 1{tbl} Take 1 Univ ers 500 mg 9-01 tablet by ity of tablet 00:00: mouth. Medical Branch metFORMIN 2022-0 Yes 1{tbl} Take 1 Univ ers 500 mg 9-01 tablet by ity of tablet 00:00: mouth. Medical Branch metFORMIN 2022-0 Yes 1{tbl} Take 1 Univ ers 500 mg 9-01 tablet by ity of tablet 00:00: mouth. [place] [facility] famotidine 2022-0 Yes 20mg Take 20 mg U nivers 20 mg 8-25 by mouth ity of tablet 00:00: at [place] [address] bedtime. Medical Branch famotidine 2022-0 Yes 20mg Take 20 mg U nivers 20 mg 8-25 by mouth ity of tablet 00:00: at [place] [address] bedtime. Medical Branch famotidine 2022-0 Yes 20mg Take 20 mg U nivers 20 mg 8-25 by mouth ity of tablet 00:00: at [place] [address] bedtime. Medical Branch famotidine 2022-0 Yes 20mg Take 20 mg U nivers 20 mg 8-25 by mouth ity of tablet 00:00: at [place] [address] bedtime. Medical Branch famotidine 2022-0 Yes 20mg Take 20 mg U nivers 20 mg 8-25 by mouth ity of tablet 00:00: at [place] [address] bedtime. Medical Branch famotidine 2022-0 Yes 20mg Take 20 mg U nivers 20 mg 8-25 by mouth ity of tablet 00:00: at [place] [address] bedtime. Medical Branch famotidine 2022-0 Yes 20mg Take 20 mg U nivers 20 mg 8-25 by mouth ity of tablet 00:00: at [place] [address] bedtime. Medical Branch famotidine 2022-0 Yes 20mg Take 20 mg U nivers 20 mg 8-25 by mouth ity of tablet 00:00: at [place] [address] bedtime. Medical Branch famotidine 2022-0 Yes 20mg Take 20 mg U nivers 20 mg 8-25 by mouth ity of tablet 00:00: at [place] [address] bedtime. Medical Branch famotidine 2022-0 Yes 20mg Take 20 mg U nivers 20 mg 8-25 by mouth ity of tablet 00:00: at [place] [address] bedtime. Medical Branch famotidine 2022-0 Yes 20mg Take 20 mg U nivers 20 mg 8-25 by mouth ity of tablet 00:00: at [place] [address] bedtime. Medical Branch famotidine 2022-0 Yes 20mg Take 20 mg U nivers 20 mg 8-25 by mouth ity of tablet 00:00: at [place] [address] bedtime. Medical Branch famotidine 2022-0 Yes 20mg Take 20 mg U nivers 20 mg 8-25 by mouth ity of tablet 00:00: at [place] [address] bedtime. Medical Branch famotidine 2022-0 Yes 20mg Take 20 mg U nivers 20 mg 8-25 by mouth ity of tablet 00:00: at [place] [address] bedtime. Medical Branch famotidine 2022-0 Yes 20mg Take 20 mg U nivers 20 mg 8-25 by mouth ity of tablet 00:00: at [place] [address] bedtime. Medical Branch famotidine 2022-0 Yes 20mg Take 20 mg U nivers 20 mg 8-25 by mouth ity of tablet 00:00: at [place] [address] bedtime. Medical Branch famotidine 2022-0 Yes 20mg Take 20 mg U nivers 20 mg 8-25 by mouth ity of tablet 00:00: at [place] [address] bedtime. Medical Branch famotidine 2022-0 Yes 20mg Take 20 mg U nivers 20 mg 8-25 by mouth ity of tablet 00:00: at [place] [address] bedtime. Medical Branch B12 1ml IM B12 1ml IM 2021-0 No B12 1ml IM [place] Q week Q week 4-28 Q week Communi 00:[facility] B12 1ml IM B12 1ml IM 2021-0 No B12 1ml IM [place] Q week Q week 4-28 Q week Communi 00:00: ty [facility] B12 1ml IM B12 1ml IM 2021-0 No B12 1ml IM [place] Q week Q week 4-28 Q week Communi 00:00: ty [facility] B12 1ml IM B12 1ml IM 2021-0 No B12 1ml IM [place] Q week Q week 4-28 Q week Communi 00:00: ty 00 [facility] B12 1ml IM B12 1ml IM 2021-0 No B12 1ml IM [place] Q week Q week - Q week Communi 00:00: ty 00 [facility] B12 1ml IM B12 1ml IM 2021-0 No B12 1ml IM [place] Q week Q week - Q week Communi 00:00: ty 00 [facility] B12 1ml IM B12 1ml IM 2021-0 No B12 1ml IM [place] Q week Q week - Q week Communi 00:00: ty 00 [facility] dicyclomine Yes [id number] 20mg Take 1 Univers 20 mg 5-13 tablet by ity of tablet 00:00: mouth 4 [place] (four) Medical times Branch daily. ondansetron Yes [id number] 4mg Take 1 Univers 4 mg 5-13 tablet by ity of disintegrat 00:00: mouth [place] ing tablet 00 every 4 Medica l (four) Branch hours as needed for Nausea and Vomiting (N/V). polyethylen Yes [id number] 1{packe Take 1 Univers e glycol 5-13 t} Packet by ity of 3350 00:00: mouth [place] (MIRALAX) 00 every 24 Medica l 17 gram (twenty-fo Branch powder ur) hours as needed for Constipati on. dicyclomine Yes [id number] 20mg Take 1 Univers 20 mg 5-13 tablet by ity of tablet 00:00: mouth 4 [place] (four) Medical times Branch daily. ondansetron Yes [id number] 4mg Take 1 Univers 4 mg 5-13 tablet by ity of disintegrat 00:00: mouth [place] ing tablet 00 every 4 Medica l (four) Branch hours as needed for Nausea and Vomiting (N/V). polyethylen 0 Yes [id number] 1{packe Take 1 Univers e glycol 5-13 t} Packet by ity of 3350 00:00: mouth [place] (MIRALAX) 00 every 24 Medica l 17 gram (twenty-fo Branch powder ur) hours as needed for Constipati on. dicyclomine 2021-0 Yes [id number] 20mg Take 1 [facility] 20 mg 5-13 tablet by [facility] of tablet 00:00: mouth 4 [place] 00 (four) Medical times Branch daily. ondansetron 2020-0 Yes [id number] 4mg Take 1 [facility] 4 mg 5-13 tablet by ity of disintegrat 00:00: mouth [place] ing tablet 00 every 4 Medica l (four) Branch hours as needed for Nausea and Vomiting (N/V). polyethylen 2020-0 Yes [id number] 1{packe Take 1 [facility] e glycol 5-13 t} Packet by ity of 3350 00:00: mouth [place] (MIRALAX) 00 every 24 Medica l 17 gram (twenty-fo Branch powder ur) hours as needed for Constipati on. dicyclomine 2020-0 Yes [id number] 20mg Take 1 [facility] 20 mg 5-13 tablet by ity of tablet 00:00: mouth 4 [place] 00 (four) Medical times Branch daily. ondansetron 2020-0 Yes [id number] 4mg Take 1 [facility] 4 mg 5-13 tablet by ity of disintegrat 00:00: mouth [place] ing tablet 00 every 4 [facility]ica [facility] (four) Branch hours as needed for Nausea and Vomiting (N/V). polyethylen 2020-0 Yes [id number] 1{packe Take 1 [facility] e glycol 5-13 t} Packet by ity of 3350 00:00: mouth [place] (MIRALAX) 00 every 24 Medica l 17 gram (twenty-fo Branch powder ur) hours as needed for Constipati on. dicyclomine 2020-0 Yes [id number] 20mg Take 1 [facility] 20 mg 5-13 tablet by [facility] of tablet 00:00: mouth 4 [place] 00 (four) Medical times Branch daily. ondansetron 2020-0 Yes [id number] 4mg Take 1 [facility] 4 mg 5-13 tablet by ity of disintegrat 00:00: mouth [place] ing tablet 00 every 4 [facility] (four) Branch hours as needed for Nausea and Vomiting (N/V). polyethylen 1-0 Yes [id number] 1{packe Take 1 [facility] e glycol 5-13 t} Packet by ity of 3350 00:00: mouth [place] (MIRALAX) 00 every 24 Medica l 17 gram (twenty-fo Branch powder ur) hours as needed for Constipati on. dicyclomine 2021-0 Yes [id number] 20mg Take 1 [facility] 20 mg 5-13 tablet by [facility]y of tablet 00:00: mouth 4 [place] 00 (four) Medical times Branch daily. ondansetron 2020-0 Yes [id number] 4mg Take 1 [facility] 4 mg 5-13 tablet by ity of disintegrat 00:00: mouth [place] ing tablet 00 every 4 [facility] (four) Branch hours as needed for Nausea and Vomiting (N/V). polyethylen 2020-0 Yes [id number] 1{packe Take 1 [facility] e glycol 5-13 t} Packet by ity of 3350 00:00: mouth [place] (MIRALAX) 00 every 24 Medica l 17 gram (twenty-fo Branch powder ur) hours as needed for Constipati on. dicyclomine 2020-0 Yes [id number] 20mg Take 1 [facility] 20 mg 5-13 tablet by [facility]y of tablet 00:00: mouth 4 [place] 00 (four) Medical times Branch daily. ondansetron 2020-0 Yes [id number] 4mg Take 1 [facility] 4 mg 5-13 tablet by ity of disintegrat 00:00: mouth [place] ing tablet 00 every 4 [facility] (four) Branch hours as needed for Nausea and Vomiting (N/V). polyethylen 2020-0 Yes [id number] 1{packe Take 1 [facility] e glycol 5-13 t} Packet by ity of 3350 00:00: mouth [place] (MIRALAX) 00 every 24 Medica l 17 gram (twenty-fo Branch powder ur) hours as needed for Constipati on. dicyclomine 2020-0 Yes [id number] 20mg Take 1 [facility] 20 mg 5-13 tablet by ity of tablet 00:00: mouth 4 [place] 00 (four) Medical times Branch daily. ondansetron 2021-0 Yes [id number] 4mg Take 1 [facility] 4 mg 5-13 tablet by ity of disintegrat 00:00: mouth [place] ing tablet 00 every 4 [facility] (four) Branch hours as needed for Nausea and Vomiting (N/V). polyethylen 2021-0 Yes [id number] 1{packe Take 1 [facility] e glycol 5-13 t} Packet by ity of 3350 00:00: mouth [place] (MIRALAX) 00 every 24 Medica l 17 gram (twenty-fo Branch powder ur) hours as needed for Constipati on. dicyclomine 2020-0 Yes [id number] 20mg Take 1 [facility] 20 mg 5-13 tablet by ity of tablet 00:00: mouth 4 [place] 00 (four) Medical times Branch daily. ondansetron 2020-0 Yes [id number] 4mg Take 1 [facility] 4 mg 5-13 tablet by ity of disintegrat 00:00: mouth [place] ing tablet 00 every 4 [facility] (four) Branch hours as needed for Nausea and Vomiting (N/V). polyethylen 2020-0 Yes [id number] 1{packe Take 1 [facility] e glycol 5-13 t} Packet by ity of 3350 00:00: mouth [place] (MIRALAX) 00 every 24 Medica l 17 gram (twenty-fo Branch powder ur) hours as needed for Constipati on. dicyclomine 2020-0 Yes [id number] 20mg Take 1 [facility] 20 mg 5-13 tablet by ity of tablet 00:00: mouth 4 [place] 00 (four) Medical times Branch daily. ondansetron 2020-0 Yes [id number] 4mg Take 1 [facility] 4 mg 5-13 tablet by ity of disintegrat 00:00: mouth [place] ing tablet 00 every 4 Medica l (four) Branch hours as needed for Nausea and Vomiting (N/V). polyethylen 2020-0 Yes [id number] 1{packe Take 1 [facility] e glycol 5-13 t} Packet by ity of 3350 00:00: mouth [place] (MIRALAX) 00 every 24 Medica l 17 gram (twenty-fo Branch powder ur) hours as needed for Constipati on. dicyclomine 2020-0 Yes [id number] 20mg Take 1 [facility] 20 mg 5-13 tablet by ity of tablet 00:00: mouth 4 [place] 00 (four) Medical times Branch daily. ondansetron 2020-0 Yes [id number] 4mg Take 1 [facility] 4 mg 5-13 tablet by ity of disintegrat 00:00: mouth [place] ing tablet 00 every 4 [facility] (four) Branch hours as needed for Nausea and Vomiting (N/V). polyethylen 2020-0 Yes [id number] 1{packe Take 1 [facility] e glycol 5-13 t} Packet by ity of 3350 00:00: mouth [place] (MIRALAX) 00 every 24 Medica l 17 gram (twenty-fo Branch powder ur) hours as needed for Constipati on. dicyclomine 2020-0 Yes [id number] 20mg Take 1 [facility] 20 mg 5-13 tablet by ity of tablet 00:00: mouth 4 [place] 00 (four) Medical times Branch daily. ondansetron 2020-0 Yes [id number] 4mg Take 1 [facility] 4 mg 5-13 tablet by ity of disintegrat 00:00: mouth [place] ing tablet 00 every 4 [facility] (four) Branch hours as needed for Nausea and Vomiting (N/V). polyethylen 2020-0 Yes [id number] 1{packe Take 1 [facility] e glycol 5-13 t} Packet by ity of 3350 00:00: mouth [place] (MIRALAX) 00 every 24 Medica l 17 gram (twenty-fo Branch powder ur) hours as needed for Constipati on. dicyclomine 2020-0 Yes [id number] 20mg Take 1 [facility] 20 mg 5-13 tablet by ity of tablet 00:00: mouth 4 [place] 00 (four) Medical times Branch daily. ondansetron 2020-0 Yes [id number] 4mg Take 1 [facility] 4 mg 5-13 tablet by ity of disintegrat 00:00: mouth [place] ing tablet 00 every 4 Med[facility] (four) Branch hours as needed for Nausea and Vomiting (N/V). polyethylen 2020-0 Yes [id number] 1{packe Take 1 [facility] e glycol 5-13 t} Packet by ity of 3350 00:00: mouth [place] (MIRALAX) 00 every 24 Medica l 17 gram (twenty-fo Branch powder ur) hours as needed for Constipati on. dicyclomine 2020-0 Yes [id number] 20mg Take 1 [facility] 20 mg 5-13 tablet by ity of tablet 00:00: mouth 4 [place] 00 (four) Medical times Branch daily. ondansetron 2020-0 Yes [id number] 4mg Take 1 [facility] 4 mg 5-13 tablet by ity of disintegrat 00:00: mouth [place] ing tablet 00 every 4 [facility] (four) Branch hours as needed for Nausea and Vomiting (N/V). polyethylen 2020-0 Yes [id number] 1{packe Take 1 [facility] e glycol 5-13 t} Packet by ity of 3350 00:00: mouth [place] (MIRALAX) 00 every 24 Medica l 17 gram (twenty-fo Branch powder ur) hours as needed for Constipati on. dicyclomine 2020-0 Yes [id number] 20mg Take 1 [facility] 20 mg 5-13 tablet by ity of tablet 00:00: mouth 4 [place] 00 (four) Medical times Branch daily. ondansetron 2020-0 Yes [id number] 4mg Take 1 [facility] 4 mg 5-13 tablet by ity of disintegrat 00:00: mouth [place] ing tablet 00 every 4 Med[facility] (four) Branch hours as needed for Nausea and Vomiting (N/V). polyethylen 2020-0 Yes [id number] 1{packe Take 1 [facility] e glycol 5-13 t} Packet by ity of 3350 00:00: mouth [place] (MIRALAX) 00 every 24 Medica l 17 gram (twenty-fo Branch powder ur) hours as needed for Constipati on. dicyclomine 2020-0 Yes [id number] 20mg Take 1 [facility] 20 mg 5-13 tablet by ity of tablet 00:00: mouth 4 [place] 00 (four) Medical times Branch daily. ondansetron 2020-0 Yes [id number] 4mg Take 1 [facility] 4 mg 5-13 tablet by ity of disintegrat 00:00: mouth [place] ing tablet 00 every 4 Medica l (four) Branch hours as needed for Nausea and Vomiting (N/V). polyethylen 2020-0 Yes [id number] 1{packe Take 1 [facility] e glycol 5-13 t} Packet by ity of 3350 00:00: mouth [place] (MIRALAX) 00 every 24 Medica l 17 gram (twenty-fo Branch powder ur) hours as needed for Constipati on. dicyclomine 2020-0 Yes [id number] 20mg Take 1 [facility] 20 mg 5-13 tablet by ity of tablet 00:00: mouth 4 [place] 00 (four) Medical times Branch daily. ondansetron 2020-0 Yes [id number] 4mg Take 1 [facility] 4 mg 5-13 tablet by ity of disintegrat 00:00: mouth [place] ing tablet 00 every 4 Medica [facility] (four) Branch hours as needed for Nausea and Vomiting (N/V). polyethylen Yes [id number] 1{packe Take 1 [facility] e glycol 5-13 t} Packet by ity of 3350 00:00: mouth [place] (MIRALAX) 00 every 24 Medica l 17 gram (twenty-fo Branch powder ur) hours as needed for Constipati on. dicyclomine Yes [id number] 20mg Take 1 [facility] 20 mg 5-13 tablet by ity of tablet 00:00: mouth 4 [place] 00 (four) Medical times Branch daily. ondansetron Yes [id number] 4mg Take 1 [facility] 4 mg 5-13 tablet by ity of disintegrat 00:00: mouth [place] ing tablet 00 every 4 Medica [facility] (four) Branch hours as needed for Nausea and Vomiting (N/V). polyethylen Yes [id number] 1{packe Take 1 [facility] e glycol 5-13 t} Packet by ity of 3350 00:00: mouth [place] (MIRALAX) 00 every 24 Medica l 17 gram (twenty-fo Branch powder ur) hours as needed for Constipati on. dicyclomine 2022- No [id number] 20mg Take 1 [facility] 20 mg 5-13 03-07 tablet by ity of tablet 00:00: 00:00 mouth 4 [place] 00 :00 (four) Medical times Branch daily. ondansetron 2022- No [id number] 4mg Take 1 [facility] 4 mg 5-13 03-07 tablet by ity of disintegrat 00:00: 00:00 mouth [place] ing tablet 00 :00 every 4 [facility] (four) Branch hours as needed for Nausea and Vomiting (N/V). polyethylen 2022- No [id number] 1{packe Take 1 [facility] e glycol 5-13 03-07 t} Packet by ity o f 3350 00:00: 00:00 mouth [place] (MIRALAX) 00 :00 every 24 Medica l 17 gram (twenty-fo Branch powder ur) hours as needed for Constipati on. dicyclomine 2022- No [id number] 20mg Take 1 [facility] 20 mg 5-13 12- tablet by ity of tablet 00:00: 00:00 mouth 4 [place] 00 :00 (four) Medical times Branch daily. ondansetron 2022- No [id number] 4mg Take 1 [facility] 4 mg -12-07 tablet by ity of disintegrat 00:00: 00:00 mouth [place] ing tablet 00 :00 every 4 [facility] (four) Branch hours as needed for Nausea and Vomiting (N/V). polyethylen 2022- No [id number] 1{packe Take 1 [facility] e glycol 02-12 t} Packet by ity o f 3350 00:00: 00:00 mouth [place] (MIRALAX) 00 :00 every 24 Medica l 17 gram (twenty-fo Branch powder ur) hours as needed for Constipati on. metoprolol 2019-10 Yes [id number] 25mg Take 1 U nivers tartrate 25 1-06 tablet by ity of mg tablet 00:00: mouth [place] (two) Medical times Branch daily. metoprolol 2019-10 Yes [id number] 25mg Take 1 U nivers tartrate 25 1-06 tablet by ity of mg tablet 00:00: mouth [place] (two) Medical times Branch daily. metoprolol 2019-10 Yes [id number] 25mg Take 1 U nivers tartrate 25 1-06 tablet by ity of mg tablet 00:00: mouth 2 [place] (two) Medical times Branch daily. metoprolol 2019- Yes [id number] 25mg Take 1 U nivers tartrate 25 1-06 tablet by ity of mg tablet 00:00: mouth 2 [place] (two) Medical times Branch daily. metoprolol 2020 Yes [id number] 25mg Take 1 U nivers tartrate 25 1-06 tablet by ity of mg tablet 00:00: mouth 2 [place] (two) Medical times Branch daily. metoprolol 2019-10 Yes [id number] 25mg Take 1 U nivers tartrate 25 1-06 tablet by ity of mg tablet 00:00: mouth 2 [place] (two) Medical times Branch daily. metoprolol 2019-10 Yes [id number] 25mg Take 1 U nivers tartrate 25 1-06 tablet by ity of mg tablet 00:00: mouth 2 [place] 00 (two) Medical times Branch daily. metoprolol 2020- Yes [id number] 25mg Take 1 U nivers tartrate 25 1-06 tablet by ity of mg tablet 00:00: mouth (two) Medical times Branch daily. metoprolol 2020-1 Yes [id number] 25mg Take 1 U nivers tartrate 25 1-06 tablet by ity of mg tablet 00:00: mouth (two) Medical times Branch daily. metoprolol 2020- Yes [id number] 25mg Take 1 U nivers tartrate 25 1-06 tablet by ity of mg tablet 00:00: mouth (two) Medical times Branch daily. metoprolol 2020- Yes [id number] 25mg Take 1 U nivers tartrate 25 1-06 tablet by ity of mg tablet 00:00: mouth (two) Medical times Branch daily. metoprolol 2020- Yes [id number] 25mg Take 1 U nivers tartrate 25 1-06 tablet by ity of mg tablet 00:00: mouth (two) Medical times Branch daily. metoprolol 2019- Yes [id number] 25mg Take 1 U nivers tartrate 25 1-06 tablet by ity of mg tablet 00:00: mouth (two) Medical times Branch daily. metoprolol 2020-1 Yes [id number] 25mg Take 1 U nivers tartrate 25 1-06 tablet by ity of mg tablet 00:00: mouth (two) Medical times Branch daily. metoprolol 2020-1 Yes [id number] 25mg Take 1 U nivers tartrate 25 1-06 tablet by ity of mg tablet 00:00: mouth (two) Medical times Branch daily. metoprolol 2020-1 Yes [id number] 25mg Take 1 U nivers tartrate 25 1-06 tablet by ity of mg tablet 00:00: mouth (two) Medical times Branch daily. metoprolol 2020-1 Yes [id number] 25mg Take 1 U nivers tartrate 25 1-06 tablet by ity of mg tablet 00:00: mouth (two) Medical times Branch daily. metoprolol 2020-1 Yes [id number] 25mg Take 1 U nivers tartrate 25 1-06 tablet by ity of mg tablet 00:00: mouth 2 [place] 00 (two) Medical times Branch daily. metoprolol 2019-10- No [id number] 25mg Take 1 [facility] tartrate 25 10-08 tablet by it y of mg tablet 00:00: 00:00 mouth 2 [place] :[place] (two) Medical times Branch daily. metoprolol 2019-10- No [id number] 25mg Take 1 [facility] tartrate 25 10-08 tablet by it y of mg tablet 00:00: 00:00 mouth 2 [place] :[place] (two) Medical times Branch daily. pantoprazol 2020-0 Yes 40mg Take 40 mg [facility] e 40 mg EC 7-27 by mouth ity o f tablet 15:54: daily. [address] pantoprazol 2020-0 Yes 40mg Take 40 mg [facility] e 40 mg EC 7-27 by mouth ity o f tablet 15:54: daily. [address] pantoprazol 2020-0 Yes 40mg Take 40 mg [facility] e 40 mg EC 7-27 by mouth ity o f tablet 15:54: daily. [address] pantoprazol 2020-0 Yes 40mg Take 40 mg [facility] e 40 mg EC 7-27 by mouth ity o f tablet 15:54: daily. [address] pantoprazol 2020-0 Yes 40mg Take 40 mg [facility] e 40 mg EC 7-27 by mouth ity o f tablet 15:54: daily. [address] pantoprazol 2020-0 Yes 40mg Take 40 mg [facility] e 40 mg EC 7-27 by mouth ity o f tablet 15:54: daily. [address] pantoprazol 2020-0 Yes 40mg Take 40 mg [facility] e 40 mg EC 7-27 by mouth ity o f tablet 15:54: daily. [address] pantoprazol 2020-0 Yes 40mg Take 40 mg [facility] e 40 mg EC 7-27 by mouth ity o f tablet 15:54: daily. [address] pantoprazol 2020-0 Yes 40mg Take 40 mg [facility] e 40 mg EC 7-27 by mouth ity o f tablet 15:54: daily. [address] pantoprazol 2020-0 Yes 40mg Take 40 mg [facility] e 40 mg EC 7-27 by mouth ity o f tablet 15:54: daily. [address] pantoprazol 2020-0 Yes 40mg Take 40 mg [facility] e 40 mg EC 7-27 by mouth ity o f tablet 15:54: daily. [address] pantoprazol 2020-0 Yes 40mg Take 40 mg [facility] e 40 mg EC 7-27 by mouth ity o f tablet 15:54: daily. [address] docusate 2020-0 Yes [id number] 200mg Take 2 U nivers 100 mg 7-27 capsules ity of capsule 00:00: by mouth 2 [place] (two) Medical times Branch daily. ezetimibe 2020-0 Yes [id number] 10mg Take 1 U nivers 10 mg 7-27 tablet by ity of tablet 00:00: mouth [place] 00 daily. [facility] Branch docusate 2020-0 Yes [id number] 200mg Take 2 U nivers 100 mg 7-27 capsules ity of capsule 00:00: by mouth 2 [place] (two) Medical times Branch daily. ezetimibe 2020-0 Yes [id number] 10mg Take 1 U nivers 10 mg 7-27 tablet by ity of tablet 00:00: mouth [place] 00 daily. [facility] Branch docusate 2020-0 Yes [id number] 200mg Take 2 U nivers 100 mg 7-27 capsules ity of capsule 00:00: by mouth 2 [place] 00 (two) Medical times Branch daily. ezetimibe 2020-0 Yes [id number] 10mg Take 1 U nivers 10 mg 7-27 tablet by ity of tablet 00:00: mouth [place] 00 daily. Medical Branch docusate 2020-0 Yes [id number] 200mg Take 2 U nivers 100 mg 7-27 capsules ity of capsule 00:00: by mouth 2 [place] (two) Medical times Branch daily. ezetimibe 2020-0 Yes [id number] 10mg Take 1 U nivers 10 mg 7-27 tablet by ity of tablet 00:00: mouth [place] 00 daily. [facility] Branch docusate 2020-0 Yes [id number] 200mg Take 2 U nivers 100 mg 7-27 capsules ity of capsule 00:00: by mouth 2 [place] (two) Medical times Branch daily. ezetimibe 2020-0 Yes [id number] 10mg Take 1 U nivers 10 mg 7-27 tablet by ity of tablet 00:00: mouth [place] 00 daily. Medical Branch docusate 2020-0 Yes [id number] 200mg Take 2 U nivers 100 mg 7-27 capsules ity of capsule 00:00: by mouth 2 [place] (two) Medical times Branch daily. ezetimibe 2020-0 Yes [id number] 10mg Take 1 U nivers 10 mg 7-27 tablet by ity of tablet 00:00: mouth [place] 00 daily. Medical Branch docusate 2020-0 Yes [id number] 200mg Take 2 U nivers 100 mg 7-27 capsules ity of capsule 00:00: by mouth 2 [place] (two) Medical times Branch daily. ezetimibe 2020-0 Yes [id number] 10mg Take 1 U nivers 10 mg 7-27 tablet by ity of tablet 00:00: mouth [place] 00 daily. Medical Branch docusate 2020-0 Yes [id number] 200mg Take 2 U nivers 100 mg 7-27 capsules ity of capsule 00:00: by mouth 2 [place] (two) Medical times Branch daily. ezetimibe 2020-0 Yes [id number] 10mg Take 1 U nivers 10 mg 7-27 tablet by ity of tablet 00:00: mouth [place] 00 daily. Medical Branch docusate 2020-0 Yes [id number] 200mg Take 2 U nivers 100 mg 7-27 capsules ity of capsule 00:00: by mouth 2 [place] (two) Medical times Branch daily. ezetimibe 2020-0 Yes [id number] 10mg Take 1 U nivers 10 mg 7-27 tablet by ity of tablet 00:00: mouth [place] 00 daily. Medical Branch docusate 2020-0 Yes [id number] 200mg Take 2 U nivers 100 mg 7-27 capsules ity of capsule 00:00: by mouth 2 [place] (two) Medical times Branch daily. ezetimibe 2020-0 Yes [id number] 10mg Take 1 U nivers 10 mg 7-27 tablet by ity of tablet 00:00: mouth [place] 00 daily. Medical Branch docusate 2020-0 Yes [id number] 200mg Take 2 U nivers 100 mg 7-27 capsules ity of capsule 00:00: by mouth 2 [place] (two) Medical times Branch daily. ezetimibe 2020-0 Yes [id number] 10mg Take 1 U nivers 10 mg 7-27 tablet by ity of tablet 00:00: mouth [place] 00 daily. Medical Branch docusate 2020-0 Yes [id number] 200mg Take 2 U nivers 100 mg 7-27 capsules ity of capsule 00:00: by mouth 2 [place] 00 (two) Medical times Branch daily. ezetimibe 2020-0 Yes [id number] 10mg Take 1 U nivers 10 mg 7-27 tablet by ity of tablet 00:00: mouth [place] 00 daily. Medical Branch docusate 2020-0 Yes [id number] 200mg Take 2 U nivers 100 mg 7-27 capsules ity of capsule 00:00: by mouth 2 [place] (two) Medical times Branch daily. ezetimibe 2020-0 Yes [id number] 10mg Take 1 U nivers 10 mg 7-27 tablet by ity of tablet 00:00: mouth [place] 00 daily. Medical Branch docusate 2020-0 Yes [id number] 200mg Take 2 U nivers 100 mg 7-27 capsules ity of capsule 00:00: by mouth 2 [place] (two) Medical times Branch daily. ezetimibe 2020-0 Yes [id number] 10mg Take 1 U nivers 10 mg 7-27 tablet by ity of tablet 00:00: mouth [place] 00 daily. Medical Branch docusate 2020-0 Yes [id number] 200mg Take 2 U nivers 100 mg 7-27 capsules ity of capsule 00:00: by mouth 2 [place] 00 (two) Medical times Branch daily. ezetimibe 2020-0 Yes [id number] 10mg Take 1 U nivers 10 mg 7-27 tablet by ity of tablet 00:00: mouth [place] 00 daily. Medical Branch docusate 2020-0 Yes [id number] 200mg Take 2 U nivers 100 mg 7-27 capsules ity of capsule 00:00: by mouth 2 [place] (two) Medical times Branch daily. ezetimibe 2020-0 Yes [id number] 10mg Take 1 U nivers 10 mg 7-27 tablet by ity of tablet 00:00: mouth [place] 00 daily. Medical Branch docusate 2020-0 Yes [id number] 200mg Take 2 U nivers 100 mg 7-27 capsules ity of capsule 00:00: by mouth 2 [place] 00 (two) Medical times Branch daily. ezetimibe 2019- Yes [id number] 10mg Take 1 U nivers 10 mg 7-27 tablet by ity of tablet 00:00: mouth [place] 00 daily. Medical Branch docusate Yes [id number] 200mg Take 2 U nivers 100 mg 7-27 capsules ity of capsule 00:00: by mouth 2 [place] 00 (two) Medical times Branch daily. ezetimibe Yes [id number] 10mg Take 1 U nivers 10 mg 7-27 tablet by ity of tablet 00:00: mouth [place] 00 daily. Medical Branch docusate 2022- No [id number] 200mg Take 2 [facility] 100 mg 7-27 03-07 capsules ity of capsule 00:00: 00:00 by mouth 2 [place] 00 :00 (two) Medical times Branch daily. ezetimibe 2022- No [id number] 10mg Take 1 [facility] 10 mg 7-27 03-07 tablet by ity of tablet 00:00: 00:00 mouth [place] 00 :00 daily. Medical Branch docusate 2022- No [id number] 200mg Take 2 [facility] 100 mg 7-27 03-07 capsules ity of capsule 00:00: 00:00 by mouth 2 [place] 00 :00 (two) Medical times Branch daily. ezetimibe 2022- No [id number] 10mg Take 1 [facility] 10 mg 7-27 03-07 tablet by ity of tablet 00:00: 00:00 mouth [place] 00 :00 daily. Medical Branch mirabegron Yes [id number] 25mg Take 1 [facility] (MYRBETRIQ) 1-27 tablet by ity of 25 mg 00:00: mouth [place] tablet 00 daily. Medical Branch linaCLOtide Yes [id number] 1{capsu Take 1 [facility] (LINZESS) 1-27 le} capsule by ity of 290 mcg Cap 00:00: mouth [place] 00 daily. Medical Branch mirabegron Yes [id number] 25mg Take 1 [facility] (MYRBETRIQ) 1-27 tablet by ity of 25 mg 00:00: mouth [place] tablet 00 daily. Medical Branch linaCLOtide 2020-0 Yes [id number] 1{capsu Take 1 [facility] (LINZESS) 1-27 le} capsule by ity of 290 mcg Cap 00:00: mouth [place] 00 daily. Medical Branch mirabegron 2020-0 Yes [id number] 25mg Take 1 [facility] (MYRBETRIQ) 1-27 tablet by ity of 25 mg 00:00: mouth [place] tablet 00 daily. Medical Branch linaCLOtide 2020-0 Yes [id number] 1{capsu Take 1 [facility] (LINZESS) 1-27 le} capsule by ity of 290 mcg Cap 00:00: mouth [place] 00 daily. Medical Branch mirabegron 2020-0 Yes [id number] 25mg Take 1 [facility] (MYRBETRIQ) 1-27 tablet by ity of 25 mg 00:00: mouth [place] tablet 00 daily. [facility] Branch linaCLOtide 2019-0 Yes [id number] 1{capsu Take 1 [facility] (LINZESS) 1-27 le} capsule by ity of 290 mcg Cap 00:00: mouth [place] 00 daily. Medical Branch mirabegron 2020-0 Yes [id number] 25mg Take 1 [facility] (MYRBETRIQ) 1-27 tablet by ity of 25 mg 00:00: mouth [place] tablet 00 daily. Medical Branch linaCLOtide 2019-0 Yes [id number] 1{capsu Take 1 [facility] (LINZESS) 1-27 le} capsule by ity of 290 mcg Cap 00:00: mouth [place] 00 daily. Medical Branch mirabegron 2020-0 Yes [id number] 25mg Take 1 [facility] (MYRBETRIQ) 1-27 tablet by ity of 25 mg 00:00: mouth [place] tablet 00 daily. Medical Branch linaCLOtide 2019-0 Yes [id number] 1{capsu Take 1 [facility] (LINZESS) 1-27 le} capsule by ity of 290 mcg Cap 00:00: mouth [place] 00 daily. [facility] Branch mirabegron 2020-0 Yes [id number] 25mg Take 1 [facility] (MYRBETRIQ) 1-27 tablet by ity of 25 mg 00:00: mouth [place] tablet 00 daily. [facility] Branch linaCLOtide 2020-0 Yes [id number] 1{capsu Take 1 [facility] (LINZESS) 1-27 le} capsule by ity of 290 mcg Cap 00:00: mouth [place] 00 daily. Medical Branch mirabegron 2020-0 Yes [id number] 25mg Take 1 [facility] (MYRBETRIQ) 1-27 tablet by ity of 25 mg 00:00: mouth [place] tablet 00 daily. Medical Branch linaCLOtide 2020-0 Yes [id number] 1{capsu Take 1 [facility] (LINZESS) 1-27 le} capsule by ity of 290 mcg Cap 00:00: mouth [place] 00 daily. Medical Branch mirabegron 2020-0 Yes [id number] 25mg Take 1 [facility] (MYRBETRIQ) 1-27 tablet by ity of 25 mg 00:00: mouth [place] tablet 00 daily. Medical Branch linaCLOtide 2020-0 Yes [id number] 1{capsu Take 1 [facility] (LINZESS) 1-27 le} capsule by ity of 290 mcg Cap 00:00: mouth [place] 00 daily. Medical Branch mirabegron 2020-0 Yes [id number] 25mg Take 1 [facility] (MYRBETRIQ) 1-27 tablet by ity of 25 mg 00:00: mouth [place] tablet 00 daily. Medical Branch linaCLOtide 2020-0 Yes [id number] 1{capsu Take 1 [facility] (LINZESS) 1-27 le} capsule by ity of 290 mcg Cap 00:00: mouth [place] 00 daily. Medical Branch mirabegron 2020-0 Yes [id number] 25mg Take 1 [facility] (MYRBETRIQ) 1-27 tablet by ity of 25 mg 00:00: mouth [place] tablet 00 daily. Medical Branch linaCLOtide 2020-0 Yes [id number] 1{capsu Take 1 [facility] (LINZESS) 1-27 le} capsule by ity of 290 mcg Cap 00:00: mouth [place] 00 daily. Medical Branch mirabegron 2020-0 Yes [id number] 25mg Take 1 [facility] (MYRBETRIQ) 1-27 tablet by ity of 25 mg 00:00: mouth [place] tablet 00 daily. Medical Branch linaCLOtide 2020-0 Yes [id number] 1{capsu Take 1 [facility] (LINZESS) 1-27 le} capsule by ity of 290 mcg Cap 00:00: mouth [place] 00 daily. [facility] mirabegron 2020-0 Yes [id number] 25mg Take 1 [facility] (MYRBETRIQ) 1-27 tablet by [facility] of 25 mg 00:00: mouth [place] tablet 00 daily. [facility] linaCLOtide 2020-0 Yes [id number] 1{capsu Take 1 [facility] (LINZESS) 1-27 le} capsule by [facility] of 290 mcg Cap 00:00: mouth [place] 00 daily. [facility] mirabegron 2020-0 Yes [id number] 25mg Take 1 [facility] (MYRBETRIQ) 1-27 tablet by [facility] of 25 mg 00:00: mouth [place] tablet 00 daily. [facility] linaCLOtide 2020-0 Yes [id number] 1{capsu Take 1 [facility] (LINZESS) 1-27 le} capsule by [facility] of 290 mcg Cap 00:00: mouth [place] 00 daily. [facility] mirabegron 2020-0 Yes [id number] 25mg Take 1 [facility] (MYRBETRIQ) 1-27 tablet by [facility] of 25 mg 00:00: mouth [place] tablet 00 daily. [facility] linaCLOtide 2019-0 Yes [id number] 1{capsu Take 1 [facility] (LINZESS) 1-27 le} capsule by [facility] of 290 mcg Cap 00:00: mouth [place] 00 daily. [facility] mirabegron 2020-0 Yes [id number] 25mg Take 1 [facility] (MYRBETRIQ) 1-27 tablet by [facility] of 25 mg 00:00: mouth [place] tablet 00 daily. [facility] linaCLOtide 2019-0 Yes [id number] 1{capsu Take 1 [facility] (LINZESS) 1-27 le} capsule by [facility] of 290 mcg Cap 00:00: mouth [place] 00 daily. [facility] mirabegron 2020-0 Yes [id number] 25mg Take 1 [facility] (MYRBETRIQ) 1-27 tablet by [facility] of 25 mg 00:00: mouth [place] tablet 00 daily. [facility] linaCLOtide 2020-0 Yes [id number] 1{capsu Take 1 [facility] (LINZESS) 1-27 le} capsule by [facility] of 290 mcg Cap 00:00: mouth [place] 00 daily. [facility] mirabegron 2020-0 Yes [id number] 25mg Take 1 [facility] (MYRBETRIQ) 1-27 tablet by [facility] of 25 mg 00:00: mouth [place] tablet 00 daily. [facility] linaCLOtide 2020-0 Yes [id number] 1{capsu Take 1 [facility] (LINZESS) 1-27 le} capsule by [facility] of 290 mcg Cap 00:00: mouth [place] 00 daily. [facility] mirabegron 2022- No [id number] 25mg Take 1 [facility] (MYRBETRIQ) 10-29 tablet by it y of 25 mg 00:00: 00:00 mouth [place] tablet 00 :00 daily. [facility] linaCLOtide 2022- No [id number] 1{capsu Take 1 [facility] (LINZESS) 10-29 le} capsule by [facility] 290 mcg Cap 00:[place] [facility] mirabegron 2022- No [id number] 25mg Take 1 [facility] (MYRBETRIQ) 10-29 tablet by it y of 25 mg 00:00: 00:00 mouth [place] tablet 00 :00 daily. [facility] linaCLOtide 2022- No [id number] 1{capsu Take 1 [facility] (LINZESS) 10-29 le} capsule by [facility] 290 mcg Cap 00:[place] [facility] esterified esterified No esterified [place] estrogens-m estrogens-m estrogens- [facility] ethyltestos ethyltestos methyltest ty terone [facility]one [facility]one [facility] 0.625 0.625 0.625 l mg-1.25 mg mg-1.25 mg mg-1.25 mg Clinics tablet TAKE tablet TAKE tablet 1 TABLET BY 1 TABLET BY TAKE 1 MOUTH ONCE MOUTH ONCE TABLET BY DAILY DAILY MOUTH ONCE DAILY famotidine famotidine No famotidine [facility] 20 mg 20 mg 20 mg [facility] tablet TAKE tablet TAKE tablet ty 1 TABLET BY 1 TABLET BY TAKE 1 [facility]ospita MOUTH EVERY MOUTH EVERY TABLET BY l DAY AT DAY AT MOUTH Clinics BEDTIME BEDTIME EVERY DAY AT BEDTIME metformin metformin No metformin [facility] 500 mg 500 mg 500 mg [facility] tablet TAKE tablet TAKE tablet ty 1 TABLET BY 1 TABLET BY TAKE 1 [facility] MOUTH ONCE MOUTH ONCE TABLET BY l DAILY DAILY MOUTH ONCE Clinics DAILY omeprazole omeprazole No omeprazole [facility] 20 mg 20 mg 20 mg [facility] capsule,del capsule,del capsule,de ty ayed ayed layed [facility] release release release l TAKE 1 TAKE 1 TAKE 1 Clinics CAPSULE BY CAPSULE BY CAPSULE BY MOUTH IN MOUTH IN MOUTH IN THE MORNING THE MORNING THE MORNING valacyclovi valacyclovi No valacyclov [facility] r 1 gram r 1 gram ir 1 gram [facility] tablet TAKE tablet TAKE tablet ty 1 TABLET BY 1 TABLET BY TAKE 1 [facility] MOUTH THREE MOUTH THREE TABLET BY l TIMES DAILY TIMES DAILY MOUTH Clinics THREE TIMES DAILY chlorthalid chlorthalid No chlorthali [facility] one 25 mg one 25 mg done 25 mg [facility] tablet TAKE tablet TAKE tablet ty 1 TABLET BY 1 TABLET BY TAKE 1 [facility]ospita MOUTH ONCE MOUTH ONCE TABLET BY l DAILY DAILY MOUTH ONCE Clinics DAILY dicyclomine dicyclomine No dicyclomin [facility] 20 mg 20 mg e 20 mg [facility] tablet TAKE tablet TAKE tablet ty 1 TABLET BY 1 TABLET BY TAKE 1 [facility] MOUTH 4 MOUTH 4 TABLET BY l TIMES DAILY TIMES DAILY MOUTH 4 Clinics TIMES DAILY DOK 100 mg DOK 100 mg No DOK 100 mg [facility] capsule capsule capsule Commun i TAKE 2 TAKE 2 TAKE 2 ty CAPSULES BY CAPSULES BY CAPSULES [facility]osp[facility] MOUTH TWICE MOUTH TWICE BY MOUTH l DAILY DAILY TWICE Clinics DAILY ergocalcife ergocalcife No ergocalcif [facility]l rol annalise [facility] (vitamin (vitamin (vitamin ty D2) 1,250 D2) 1,250 D2) 1,250 [facility] mcg (50,000 mcg (50,000 mcg l unit) unit) (50,000 Clinics capsule capsule unit) TAKE 1 TAKE 1 capsule CAPSULE BY CAPSULE BY TAKE 1 MOUTH ONCE MOUTH ONCE CAPSULE BY A WEEK A WEEK MOUTH ONCE A WEEK esterified esterified No esterified [facility] estrogens-m estrogens-m estrogens- [facility] ethyltestos ethyltestos methyltest ty terone [facility]one [facility]sterone [facility] 0.625 0.625 0.625 l mg-1.25 mg mg-1.25 mg mg-1.25 mg Clinics tablet TAKE tablet TAKE tablet 1 TABLET BY 1 TABLET BY TAKE 1 MOUTH ONCE MOUTH ONCE TABLET BY DAILY DAILY MOUTH ONCE DAILY famotidine famotidine No famotidine [facility] 20 mg 20 mg 20 mg [facility] tablet TAKE tablet TAKE tablet ty 1 TABLET BY 1 TABLET BY TAKE 1 [facility]ospita MOUTH EVERY MOUTH EVERY TABLET BY l DAY AT DAY AT MOUTH Clinics BEDTIME BEDTIME EVERY DAY AT BEDTIME metformin metformin No metformin [facility] 500 mg 500 mg 500 mg [facility] tablet TAKE tablet TAKE tablet ty 1 TABLET BY 1 TABLET BY TAKE 1 [facility] MOUTH ONCE MOUTH ONCE TABLET BY l DAILY DAILY MOUTH ONCE Clinics DAILY omeprazole omeprazole No omeprazole [facility] 20 mg 20 mg 20 mg [facility] capsule,del capsule,del capsule,de ty ayed ayed layed [facility] release release release l TAKE 1 TAKE 1 TAKE 1 Clinics CAPSULE BY CAPSULE BY CAPSULE BY MOUTH IN MOUTH IN MOUTH IN THE MORNING THE MORNING THE MORNING valacyclovi valacyclovi No valacyclov [facility] r 1 gram r 1 gram ir 1 gram Co [facility] tablet TAKE tablet TAKE tablet ty 1 TABLET BY 1 TABLET BY TAKE 1 [facility] MOUTH THREE MOUTH THREE TABLET BY l TIMES DAILY TIMES DAILY MOUTH Clinics THREE TIMES DAILY chlorthalid chlorthalid No chlorthali [facility] one 25 mg one 25 mg done 25 mg [facility] tablet TAKE tablet TAKE tablet ty 1 TABLET BY 1 TABLET BY TAKE 1 [facility] MOUTH ONCE MOUTH ONCE TABLET BY l DAILY DAILY MOUTH ONCE Clinics DAILY dicyclomine dicyclomine No dicyclomin [facility] 20 mg 20 mg e 20 mg [facility] tablet TAKE tablet TAKE tablet ty 1 TABLET BY 1 TABLET BY TAKE 1 [facility] MOUTH 4 MOUTH 4 TABLET BY l TIMES DAILY TIMES DAILY MOUTH 4 Clinics TIMES DAILY DOK 100 mg DOK 100 mg No DOK 100 mg [facility] capsule capsule capsule Commun i TAKE 2 TAKE 2 TAKE 2 ty CAPSULES BY CAPSULES BY CAPSULES [facility]osp[facility] MOUTH TWICE MOUTH TWICE BY MOUTH l DAILY DAILY TWICE Clinics DAILY ergocalcife ergocalcife No ergocalcif [facility] rol annalise [facility] (vitamin (vitamin (vitamin ty D2) 1,250 D2) 1,250 D2) 1,250 [facility] mcg (50,000 mcg (50,000 mcg l unit) unit) (50,000 Clinics capsule capsule unit) TAKE 1 TAKE 1 capsule CAPSULE BY CAPSULE BY TAKE 1 MOUTH ONCE MOUTH ONCE CAPSULE BY A WEEK A WEEK MOUTH ONCE A WEEK esterified esterified No esterified [facility] [place] estrogens-m estrogens-m estrogens- [facility] ethyltestos ethyltestos methyltest ty terone [facility]one [facility]one [facility] 0.625 0.625 0.625 l mg-1.25 mg mg-1.25 mg mg-1.25 mg Clinics tablet TAKE tablet TAKE tablet 1 TABLET BY 1 TABLET BY TAKE 1 MOUTH ONCE MOUTH ONCE TABLET BY DAILY DAILY MOUTH ONCE DAILY famotidine famotidine No famotidine [facility] 20 mg 20 mg 20 mg [facility] tablet TAKE tablet TAKE tablet ty 1 TABLET BY 1 TABLET BY TAKE 1 [facility] MOUTH EVERY MOUTH EVERY TABLET BY l DAY AT DAY AT MOUTH Clinics BEDTIME BEDTIME EVERY DAY AT BEDTIME metformin metformin No metformin [facility] [place] 500 mg 500 mg 500 mg [facility] tablet TAKE tablet TAKE tablet ty 1 TABLET BY 1 TABLET BY TAKE 1 [facility] MOUTH ONCE MOUTH ONCE TABLET BY l DAILY DAILY MOUTH ONCE Clinics DAILY omeprazole omeprazole No omeprazole [facility] 20 mg 20 mg 20 mg [facility] capsule,del capsule,del capsule,de ty ayed ayed layed [facility] release release release l TAKE 1 TAKE 1 TAKE 1 Clinics CAPSULE BY CAPSULE BY CAPSULE BY MOUTH IN MOUTH IN MOUTH IN THE MORNING THE MORNING THE MORNING valacyclovi valacyclovi No valacyclov [facility] r 1 gram r 1 gram ir 1 gram Co [facility]i tablet TAKE tablet TAKE tablet ty 1 TABLET BY 1 TABLET BY TAKE 1 [facility] MOUTH THREE MOUTH THREE TABLET BY l TIMES DAILY TIMES DAILY MOUTH Clinics THREE TIMES DAILY chlorthalid chlorthalid No chlorthali [facility] one 25 mg one 25 mg done 25 mg [facility] tablet TAKE tablet TAKE tablet ty 1 TABLET BY 1 TABLET BY TAKE 1 [facility] MOUTH ONCE MOUTH ONCE TABLET BY l DAILY DAILY MOUTH ONCE Clinics DAILY dicyclomine dicyclomine No dicyclomin [facility] 20 mg 20 mg e 20 mg [facility] tablet TAKE tablet TAKE tablet ty 1 TABLET BY 1 TABLET BY TAKE 1 [facility] MOUTH 4 MOUTH 4 TABLET BY l TIMES DAILY TIMES DAILY MOUTH 4 Clinics TIMES DAILY DOK 100 mg DOK 100 mg No DOK 100 mg [facility] capsule capsule capsule Commun i TAKE 2 TAKE 2 TAKE 2 ty CAPSULES BY CAPSULES BY CAPSULES [facility]osp[facility] MOUTH TWICE MOUTH TWICE BY MOUTH l DAILY DAILY TWICE Clinics DAILY ergocalcife ergocalcife No ergocalcif [facility] rol annalise [facility] (vitamin (vitamin (vitamin ty D2) 1,250 D2) 1,250 D2) 1,250 [facility] mcg (50,000 mcg (50,000 mcg l unit) unit) (50,000 Clinics capsule capsule unit) TAKE 1 TAKE 1 capsule CAPSULE BY CAPSULE BY TAKE 1 MOUTH ONCE MOUTH ONCE CAPSULE BY A WEEK A WEEK MOUTH ONCE A WEEK esterified esterified No esterified [place] estrogens-m estrogens-m estrogens- [facility] ethyltestos ethyltestos methyltest ty terone [facility]one [facility]sterone [facility] 0.625 0.625 0.625 l mg-1.25 mg mg-1.25 mg mg-1.25 mg Clinics tablet TAKE tablet TAKE tablet 1 TABLET BY 1 TABLET BY TAKE 1 MOUTH ONCE MOUTH ONCE TABLET BY DAILY DAILY MOUTH ONCE DAILY famotidine famotidine No famotidine [facility] 20 mg 20 mg 20 mg [facility] tablet TAKE tablet TAKE tablet ty 1 TABLET BY 1 TABLET BY TAKE 1 [facility] MOUTH EVERY MOUTH EVERY TABLET BY l DAY AT DAY AT MOUTH Clinics BEDTIME BEDTIME EVERY DAY AT BEDTIME metformin metformin No metformin [facility] 500 mg 500 mg 500 mg [facility] tablet TAKE tablet TAKE tablet ty 1 TABLET BY 1 TABLET BY TAKE 1 [facility] MOUTH ONCE MOUTH ONCE TABLET BY l DAILY DAILY MOUTH ONCE Clinics DAILY omeprazole omeprazole No omeprazole [facility] 20 mg 20 mg 20 mg [facility] capsule,del capsule,del capsule,de ty ayed ayed layed [facility] release release release l TAKE 1 TAKE 1 TAKE 1 Clinics CAPSULE BY CAPSULE BY CAPSULE BY MOUTH IN MOUTH IN MOUTH IN THE MORNING THE MORNING THE MORNING valacyclovi valacyclovi No valacyclov [facility] r 1 gram r 1 gram ir 1 gram Co [facility] tablet TAKE tablet TAKE tablet ty 1 TABLET BY 1 TABLET BY TAKE 1 [facility] MOUTH THREE MOUTH THREE TABLET BY l TIMES DAILY TIMES DAILY MOUTH Clinics THREE TIMES DAILY chlorthalid chlorthalid No chlorthali [facility] one 25 mg one 25 mg done 25 mg [facility] tablet TAKE tablet TAKE tablet ty 1 TABLET BY 1 TABLET BY TAKE 1 [facility] MOUTH ONCE MOUTH ONCE TABLET BY l DAILY DAILY MOUTH ONCE Clinics DAILY dicyclomine dicyclomine No dicyclomin [facility] 20 mg 20 mg e 20 mg [facility] tablet TAKE tablet TAKE tablet ty 1 TABLET BY 1 TABLET BY TAKE 1 [facility] MOUTH 4 MOUTH 4 TABLET BY l TIMES DAILY TIMES DAILY MOUTH 4 Clinics TIMES DAILY DOK 100 mg DOK 100 mg No DOK 100 mg [facility] capsule capsule capsule Commun i TAKE 2 TAKE 2 TAKE 2 ty CAPSULES BY CAPSULES BY CAPSULES [facility]osp[facility] MOUTH TWICE MOUTH TWICE BY MOUTH l DAILY DAILY TWICE Clinics DAILY ergocalcife ergocalcife No ergocalcif [facility] ro[place] (vitamin (vitamin (vitamin ty D2) 1,250 D2) 1,250 D2) 1,250 [facility]osp[facility] mcg (50,000 mcg (50,000 mcg l unit) unit) (50,000 Clinics capsule capsule unit) TAKE 1 TAKE 1 capsule CAPSULE BY CAPSULE BY TAKE 1 MOUTH ONCE MOUTH ONCE CAPSULE BY A WEEK A WEEK MOUTH ONCE A WEEK esterified esterified No esterified [facility] estrogens-m estrogens-m estrogens- [facility] ethyltestos ethyltestos methyltest ty terone terone osterone [facility] 0.625 0.625 0.625 l mg-1.25 mg mg-1.25 mg mg-1.25 mg Clinics tablet TAKE tablet TAKE tablet 1 TABLET BY 1 TABLET BY TAKE 1 MOUTH ONCE MOUTH ONCE TABLET BY DAILY DAILY MOUTH ONCE DAILY famotidine famotidine No famotidine [facility] 20 mg 20 mg 20 mg [facility] tablet TAKE tablet TAKE tablet ty 1 TABLET BY 1 TABLET BY TAKE 1 [facility]ita MOUTH EVERY MOUTH EVERY TABLET BY l DAY AT DAY AT MOUTH Clinics BEDTIME BEDTIME EVERY DAY AT BEDTIME metformin metformin No metformin [facility] 500 mg 500 mg 500 mg [facility] tablet TAKE tablet TAKE tablet ty 1 TABLET BY 1 TABLET BY TAKE 1 [facility] MOUTH ONCE MOUTH ONCE TABLET BY l DAILY DAILY MOUTH ONCE Clinics DAILY omeprazole omeprazole No omeprazole [facility] 20 mg 20 mg 20 mg [facility] capsule,del capsule,del capsule,de ty ayed ayed layed [facility] release release release l TAKE 1 TAKE 1 TAKE 1 Clinics CAPSULE BY CAPSULE BY CAPSULE BY MOUTH IN MOUTH IN MOUTH IN THE MORNING THE MORNING THE MORNING valacyclovi valacyclovi No valacyclov [facility] r 1 gram r 1 gram ir 1 gram Co [facility] tablet TAKE tablet TAKE tablet ty 1 TABLET BY 1 TABLET BY TAKE 1 [facility] MOUTH THREE MOUTH THREE TABLET BY l TIMES DAILY TIMES DAILY MOUTH Clinics THREE TIMES DAILY chlorthalid chlorthalid No chlorthali [facility] one 25 mg one 25 mg done 25 mg [facility] tablet TAKE tablet TAKE tablet ty 1 TABLET BY 1 TABLET BY TAKE 1 [facility] MOUTH ONCE MOUTH ONCE TABLET BY l DAILY DAILY MOUTH ONCE Clinics DAILY dicyclomine dicyclomine No dicyclomin [facility] 20 mg 20 mg e 20 mg [facility]i tablet TAKE tablet TAKE tablet ty 1 TABLET BY 1 TABLET BY TAKE 1 [facility] MOUTH 4 MOUTH 4 TABLET BY l TIMES DAILY TIMES DAILY MOUTH 4 Clinics TIMES DAILY DOK 100 mg DOK 100 mg No DOK 100 mg [facility] capsule capsule capsule Commun i TAKE 2 TAKE 2 TAKE 2 ty CAPSULES BY CAPSULES BY CAPSULES [facility] MOUTH TWICE MOUTH TWICE BY MOUTH l DAILY DAILY TWICE Clinics DAILY ergocalcife ergocalcife No ergocalcif [facility] rol rol annalise [facility] (vitamin (vitamin (vitamin ty D2) 1,250 D2) 1,250 D2) 1,250 [facility] mcg (50,000 mcg (50,000 mcg l unit) unit) (50,000 Clinics capsule capsule unit) TAKE 1 TAKE 1 capsule CAPSULE BY CAPSULE BY TAKE 1 MOUTH ONCE MOUTH ONCE CAPSULE BY A WEEK A WEEK MOUTH ONCE A WEEK esterified esterified No esterified [facility] estrogens-m estrogens-m estrogens- [facility] ethyltestos ethyltestos methyltest ty terone terone osterone [facility] 0.625 0.625 0.625 l mg-1.25 mg mg-1.25 mg mg-1.25 mg Clinics tablet TAKE tablet TAKE tablet 1 TABLET BY 1 TABLET BY TAKE 1 MOUTH ONCE MOUTH ONCE TABLET BY DAILY DAILY MOUTH ONCE DAILY famotidine famotidine No famotidine [facility] 20 mg 20 mg 20 mg [facility] tablet TAKE tablet TAKE tablet ty 1 TABLET BY 1 TABLET BY TAKE 1 [facility] MOUTH EVERY MOUTH EVERY TABLET BY l DAY AT DAY AT MOUTH Clinics BEDTIME BEDTIME EVERY DAY AT BEDTIME metformin metformin No metformin [facility] 500 mg 500 mg 500 mg [facility] tablet TAKE tablet TAKE tablet ty 1 TABLET BY 1 TABLET BY TAKE 1 [facility] MOUTH ONCE MOUTH ONCE TABLET BY l DAILY DAILY MOUTH ONCE Clinics DAILY omeprazole omeprazole No omeprazole [facility] 20 mg 20 mg 20 mg [facility] capsule,del capsule,del capsule,de ty ayed ayed layed [facility] release release release l TAKE 1 TAKE 1 TAKE 1 Clinics CAPSULE BY CAPSULE BY CAPSULE BY MOUTH IN MOUTH IN MOUTH IN THE MORNING THE MORNING THE MORNING valacyclovi valacyclovi No valacyclov [facility] r 1 gram r 1 gram ir 1 gram Co [facility]i tablet TAKE tablet TAKE tablet ty 1 TABLET BY 1 TABLET BY TAKE 1 [facility] MOUTH THREE MOUTH THREE TABLET BY l TIMES DAILY TIMES DAILY MOUTH Clinics THREE TIMES DAILY chlorthalid chlorthalid No chlorthali [facility] one 25 mg one 25 mg done 25 mg [facility] tablet TAKE tablet TAKE tablet ty 1 TABLET BY 1 TABLET BY TAKE 1 [facility] MOUTH ONCE MOUTH ONCE TABLET BY l DAILY DAILY MOUTH ONCE Clinics DAILY dicyclomine dicyclomine No dicyclomin [facility] 20 mg 20 mg e 20 mg [facility] tablet TAKE tablet TAKE tablet ty 1 TABLET BY 1 TABLET BY TAKE 1 [facility] MOUTH 4 MOUTH 4 TABLET BY l TIMES DAILY TIMES DAILY MOUTH 4 Clinics TIMES DAILY DOK 100 mg DOK 100 mg No DOK 100 mg [facility] capsule capsule capsule Commun i TAKE 2 TAKE 2 TAKE 2 ty CAPSULES BY CAPSULES BY CAPSULES [facility]osp[facility] MOUTH TWICE MOUTH TWICE BY MOUTH l DAILY DAILY TWICE Clinics DAILY ergocalcife ergocalcife No ergocalcif [facility] rol rol annalise [facility] (vitamin (vitamin (vitamin ty D2) 1,250 D2) 1,250 D2) 1,250 [facility] mcg (50,000 mcg (50,000 mcg l unit) unit) (50,000 Clinics capsule capsule unit) TAKE 1 TAKE 1 capsule CAPSULE BY CAPSULE BY TAKE 1 MOUTH ONCE MOUTH ONCE CAPSULE BY A WEEK A WEEK MOUTH ONCE A WEEK esterified esterified No esterified [facility] estrogens-m estrogens-m estrogens- [facility] ethyltestos ethyltestos methyltest ty terone terone osterone [facility]osp[facility] 0.625 0.625 0.625 l mg-1.25 mg mg-1.25 mg mg-1.25 mg Clinics tablet TAKE tablet TAKE tablet 1 TABLET BY 1 TABLET BY TAKE 1 MOUTH ONCE MOUTH ONCE TABLET BY DAILY DAILY MOUTH ONCE DAILY famotidine famotidine No famotidine [facility] 20 mg 20 mg 20 mg [facility] tablet TAKE tablet TAKE tablet ty 1 TABLET BY 1 TABLET BY TAKE 1 [facility] MOUTH EVERY MOUTH EVERY TABLET BY l DAY AT DAY AT MOUTH Clinics BEDTIME BEDTIME EVERY DAY AT BEDTIME metformin metformin No metformin [facility] 500 mg 500 mg 500 mg [facility] tablet TAKE tablet TAKE tablet ty 1 TABLET BY 1 TABLET BY TAKE 1 [facility] MOUTH ONCE MOUTH ONCE TABLET BY l DAILY DAILY MOUTH ONCE Clinics DAILY omeprazole omeprazole No omeprazole [facility] 20 mg 20 mg 20 mg [facility] capsule,del capsule,del capsule,de ty ayed ayed layed [facility] release release release l TAKE 1 TAKE 1 TAKE 1 Clinics CAPSULE BY CAPSULE BY CAPSULE BY MOUTH IN MOUTH IN MOUTH IN THE MORNING THE MORNING THE MORNING valacyclovi valacyclovi No valacyclov [facility] r 1 gram r 1 gram ir 1 gram Co [facility] tablet TAKE tablet TAKE tablet ty 1 TABLET BY 1 TABLET BY TAKE 1 [facility] MOUTH THREE MOUTH THREE TABLET BY l TIMES DAILY TIMES DAILY MOUTH Clinics THREE TIMES DAILY chlorthalid chlorthalid No chlorthali [facility] one 25 mg one 25 mg done 25 mg [facility] tablet TAKE tablet TAKE tablet ty 1 TABLET BY 1 TABLET BY TAKE 1 [facility] MOUTH ONCE MOUTH ONCE TABLET BY l DAILY DAILY MOUTH ONCE Clinics DAILY dicyclomine dicyclomine No dicyclomin [facility] 20 mg 20 mg e 20 mg [facility]i tablet TAKE tablet TAKE tablet ty 1 TABLET BY 1 TABLET BY TAKE 1 [facility] MOUTH 4 MOUTH 4 TABLET BY l TIMES DAILY TIMES DAILY MOUTH 4 Clinics TIMES DAILY DOK 100 mg DOK 100 mg No DOK 100 mg [facility] capsule capsule capsule Commun i TAKE 2 TAKE 2 TAKE 2 ty CAPSULES BY CAPSULES BY CAPSULES [facility]osp[facility] MOUTH TWICE MOUTH TWICE BY MOUTH l DAILY DAILY TWICE Clinics DAILY ergocalcife ergocalcife No ergocalcif [facility] rol rol annalise [facility] (vitamin (vitamin (vitamin ty D2) 1,250 D2) 1,250 D2) 1,250 [facility]osp[facility] mcg (50,000 mcg (50,000 mcg l unit) unit) (50,000 Clinics capsule capsule unit) TAKE 1 TAKE 1 capsule CAPSULE BY CAPSULE BY TAKE 1 MOUTH ONCE MOUTH ONCE CAPSULE BY A WEEK A WEEK MOUTH ONCE A WEEK esterified esterified No esterified [facility] estrogens-m estrogens-m estrogens- [facility] ethyltestos ethyltestos methyltest ty terone terone osterone [facility]osp[facility] 0.625 0.625 0.625 l mg-1.25 mg mg-1.25 mg mg-1.25 mg Clinics tablet TAKE tablet TAKE tablet 1 TABLET BY 1 TABLET BY TAKE 1 MOUTH ONCE MOUTH ONCE TABLET BY DAILY DAILY MOUTH ONCE DAILY famotidine famotidine No famotidine [facility] 20 mg 20 mg 20 mg [facility] tablet TAKE tablet TAKE tablet ty 1 TABLET BY 1 TABLET BY TAKE 1 [facility]ita MOUTH EVERY MOUTH EVERY TABLET BY l DAY AT DAY AT MOUTH Clinics BEDTIME BEDTIME EVERY DAY AT BEDTIME metformin metformin No metformin [facility] 500 mg 500 mg 500 mg [facility] tablet TAKE tablet TAKE tablet ty 1 TABLET BY 1 TABLET BY TAKE 1 [facility] MOUTH ONCE MOUTH ONCE TABLET BY l DAILY DAILY MOUTH ONCE Clinics DAILY omeprazole omeprazole No omeprazole [facility] 20 mg 20 mg 20 mg [facility] capsule,del capsule,del capsule,de ty ayed ayed layed [facility] release release release l TAKE 1 TAKE 1 TAKE 1 Clinics CAPSULE BY CAPSULE BY CAPSULE BY MOUTH IN MOUTH IN MOUTH IN THE MORNING THE MORNING THE MORNING valacyclovi valacyclovi No valacyclov [facility] r 1 gram r 1 gram ir 1 gram Co [facility] tablet TAKE tablet TAKE tablet ty 1 TABLET BY 1 TABLET BY TAKE 1 [facility] MOUTH THREE MOUTH THREE TABLET BY l TIMES DAILY TIMES DAILY MOUTH Clinics THREE TIMES DAILY chlorthalid chlorthalid No chlorthali [facility] one 25 mg one 25 mg done 25 mg [facility] tablet TAKE tablet TAKE tablet ty 1 TABLET BY 1 TABLET BY TAKE 1 [facility] MOUTH ONCE MOUTH ONCE TABLET BY l DAILY DAILY MOUTH ONCE Clinics DAILY dicyclomine dicyclomine No dicyclomin [facility] 20 mg 20 mg e 20 mg [facility]i tablet TAKE tablet TAKE tablet ty 1 TABLET BY 1 TABLET BY TAKE 1 [facility]osp[facility] MOUTH 4 MOUTH 4 TABLET BY l TIMES DAILY TIMES DAILY MOUTH 4 Clinics TIMES DAILY DOK 100 mg DOK 100 mg No DOK 100 mg [facility] capsule capsule capsule Commun i TAKE 2 TAKE 2 TAKE 2 ty CAPSULES BY CAPSULES BY CAPSULES [facility]ospita MOUTH TWICE MOUTH TWICE BY MOUTH l DAILY DAILY TWICE Clinics DAILY ergocalcife ergocalcife No ergocalcif [facility] rojas [place] (vitamin (vitamin (vitamin ty D2) 1,250 D2) 1,250 D2) 1,250 [facility]ospita mcg (50,000 mcg (50,000 mcg l unit) unit) (50,000 Clinics capsule capsule unit) TAKE 1 TAKE 1 capsule CAPSULE BY CAPSULE BY TAKE 1 MOUTH ONCE MOUTH ONCE CAPSULE BY A WEEK A WEEK MOUTH ONCE A WEEK Immunizations Ordered Filled Immunization Date Status Comments [facility] e Immunization Name Name Tdap- (Boostrix, 2013-10-17 Completed [facility]) 00:00:00 External Tdap- (Boostrix, 2013-10-17 Completed [facility]) 00:00:00 External Tdap- (Boostrix, 2013-10-17 Completed [facility]) 00:00:00 External TDAP 2013-10-17 Completed [facility]00 [facility] TDAP 2013-10-17 Completed [facility] 00:00:00 [facility] TDAP 2013-10-17 Completed University 00:00:00 [facility] TDAP 2013-10-17 Completed University 00:00:00 [facility] TDAP 2013-10-17 Completed [facility] 00:00:00 [facility] TDAP 2013-10-17 Completed [facility] 00:00:00 [facility] TDAP 2013-10-17 Completed [facility] 00:00:00 [facility] TDAP 2013-10-17 Completed [facility] 00:00:00 [facility] TDAP 2013-10-17 Completed [facility] 00:00:00 [facility] TDAP 2013-10-17 Completed [facility] 00[facility]00:00 [facility] TDAP 2013-10-17 Completed [facility] 00:00:00 [facility] TDAP 2013-10-17 Completed [facility] 00:00:00 [facility] TDAP 2013-10-17 Completed [facility] 00:00:00 [facility] TDAP 2013-10-17 Completed [facility] 00:00:00 [facility] TDAP 2013-10-17 Completed [facility] 00[facility]00:00 [facility] TDAP 2013-10-17 Completed [facility] 00:00:00 [facility] TDAP 2013-10-17 Completed [facility] 00:00:00 [facility] TDAP 2013-10-17 Completed [facility] 00:00:00 [facility] TDAP 2013-10-17 Completed [facility] 00:00:00 [facility] TDAP 2013-10-17 Completed [facility] 00:00:00 [facility] TDAP 2013-10-17 Completed [facility] 00:00:00 [facility] Influenza Virus 2010-10-03 Completed [facility] - Vaccine, 00:00:00 External Unspecified Formulation Influenza Virus 2010-10-03 Completed [facility] - Vaccine, 00:00:00 External Unspecified Formulation Influenza Virus 2010-10-03 Completed [facility] - Vaccine, 00:00:00 External Unspecified Formulation Influenza Virus 2010-10-03 Completed [facility] Vaccine 00:00:00 [facility] Influenza Virus 2010-10-03 Completed [facility] y of Vaccine 00:00:00 [facility] Influenza Virus 2010-10-03 Completed [facility] y of Vaccine 00:00:00 [facility] Influenza Virus 2010-10-03 Completed [facility] y of Vaccine 00:00:00 [facility] Influenza Virus 2010-10-03 Completed Universit y of Vaccine 00:00:00 [facility] Influenza Virus 2010-10-03 Completed Universit y of Vaccine 00:00:00 [facility] Influenza Virus 2010-10-03 Completed Universit y of Vaccine 00:00:00 [facility] Influenza Virus 2010-10-03 Completed Universit y of Vaccine 00:00:00 [facility] Influenza Virus 2010-10-03 Completed Universit y of Vaccine 00:00:00 [facility] Influenza Virus 2010-10-03 Completed Universit y of Vaccine 00:00:00 [facility] Influenza Virus 2010-10-03 Completed Universit y of Vaccine 00:00:00 [facility] Influenza Virus 2010-10-03 Completed Universit y of Vaccine 00:00:00 [facility] Influenza Virus 2010-10-03 Completed Universit y of Vaccine 00:00:00 [facility] Influenza Virus 2010-10-03 Completed Universit y of Vaccine 00:00:00 [facility] Influenza Virus 2010-10-03 Completed Universit y of Vaccine 00:00:00 [facility] Influenza Virus 2010-10-03 Completed Universit y of Vaccine 00:00:00 [facility] Influenza Virus 2010-10-03 Completed Universit y of Vaccine 00:00:00 [facility] Influenza Virus 2010-10-03 Completed Universit y of Vaccine 00:00:00 [facility] Influenza Virus 2010-10-03 Completed Universit y of Vaccine 00:00:00 [facility] Influenza Virus 2010-10-03 Completed Universit y of Vaccine 00:00:00 [facility] Influenza Virus 2010-10-03 Completed Universit y of Vaccine 00:00:00 [facility] TD, NOS 2004-03-20 Completed University of 00:00:00 [facility] TD, NOS 2004-03-20 Completed University of 00:00:00 [facility] TD, NOS 2004-03-20 Completed University of 00:00:00 [facility] TD, NOS 2004-03-20 Completed University of 00:00:00 [facility] TD, NOS 2004-03-20 Completed University of 00:00:00 [facility] TD, NOS 2004-03-20 Completed University of 00:00:00 [facility] Td (adult) 2004-03-20 Completed Chapis Pickett - 00:00:00 External Tdap- (Boostrix, 2004-03-20 Completed Chapis rajan - Adacel) 00:00:00 External Td (adult) 2004-03-20 Completed Chapis Pickett - 00:00:00 External Td (adult) 2004-03-20 Completed Chapis Pickett - 00:00:00 External Td 2004-03-20 Completed University of 00:00:00 [facility] Td 2004-03-20 Completed University of 00:00:00 [facility] Td 2004-03-20 Completed University of 00:00:00 [facility] Td 2004-03-20 Completed University of 00:00:00 [facility] Td 2004-03-20 Completed University of 00:00:00 [facility] Td 2004-03-20 Completed University of 00:00:00 [facility] Td 2004-03-20 Completed University of 00:00:00 [facility] Td 2004-03-20 Completed University of 00:00:00 [facility] TD, NOS 2004-03-20 Completed University of 00:00:00 [facility] TD, NOS 2004-03-20 Completed University of 00:00:00 [facility] TD, NOS 2004-03-20 Completed University of 00:00:00 [facility] TD, NOS 2004-03-20 Completed University of 00:00:00 [facility] TD, NOS 2004-03-20 Completed University of 00:00:00 [facility] TD, NOS 2004-03-20 Completed University of 00:00:00 [facility] TD, NOS 2004-03-20 Completed University of 00:00:00 [facility] Vital Signs Vital Name Observation Time Observation Value Comments Source Systolic blood 2023-03-21 14:14:00 145 mm[Hg] Chapis Bernalybold - pressure External Diastolic blood 2023-03-21 14:14:00 89 mm[Hg] Avril irving Seybold - pressure External Heart rate 2023-03-21 14:14:00 89 /min Chapis rajan - External Body temperature 2023-03-21 14:14:00 36.61 Mily Josette sampson Seybold - External Respiratory rate 2023-03-21 14:14:00 14 /min Josette Pickett - External Body height 2023-03-21 14:14:00 157.5 cm Chapis rajan - External Body weight 2023-03-21 14:14:00 63.957 kg Chapis rajan - External BMI 2023-03-21 14:14:00 25.79 kg/m2 Chapis rajan - External Oxygen saturation in 2023-03-21 14:14:00 99 /min Chapis Pickett - Arterial blood by External Pulse oximetry Systolic blood 2022-12-07 16:05:00 140 mm[Hg] Univer sity of pressure [facility] Diastolic blood 2022-12-07 16:05:00 90 mm[Hg] Unive rsity of pressure [facility] Heart rate 2022-12-07 16:04:00 81 /min Universi ty of [facility] Body temperature 2022-12-07 16:04:00 36.5 Mily Univ ersity of [facility] Respiratory rate 2022-12-07 16:04:00 18 /min Univ ersity of [facility] Body height 2022-12-07 16:04:00 157.5 cm Universi ty of [facility] Body weight 2022-12-07 16:04:00 63.866 kg Universi ty of [facility] BMI 2022-12-07 16:04:00 25.75 kg/m2 Universi ty of [facility] Systolic blood 2022-10-21 15:43:00 128 mm[Hg] Univer sity of pressure [facility] Diastolic blood 2022-10-21 15:43:00 81 mm[Hg] Unive rsity of pressure [facility] Heart rate 2022-10-21 15:43:00 63 /min Universi ty of [facility] Body temperature 2022-10-21 15:43:00 36.72 Mily Univ ersity of [facility] Body height 2022-10-21 15:43:00 157.5 cm Universi ty of [facility] Body weight 2022-10-21 15:43:00 62.596 kg Universi ty of [facility] BMI 2022-10-21 15:43:00 25.24 kg/m2 Universi ty of [facility] Systolic blood 2022-08-31 17:08:00 125 mm[Hg] Chapis Pickett - pressure External Diastolic blood 2022-08-31 17:08:00 67 mm[Hg] Avril irving Sekevin - pressure External Heart rate 2022-08-31 17:08:00 73 /min Chapis Azar eybold - External Body temperature 2022-08-31 17:08:00 36.39 Mily Josette sampson Seybold - External Respiratory rate 2022-08-31 17:08:00 14 /min Josette ey Seybold - External Body height 2022-08-31 17:08:00 157.5 cm Chapis Azar eybold - External Body weight 2022-08-31 17:08:00 63.957 kg Chapis S eybold - External BMI 2022-08-31 17:08:00 25.79 kg/m2 Chapis S eybold - External Oxygen saturation in 2022-08-31 17:08:00 98 /min Chapis Seybold - Arterial blood by External Pulse oximetry Systolic blood 2022-08-17 15:52:00 122 mm[Hg] Chapis Seybold - pressure External Diastolic blood 2022-08-17 15:52:00 76 mm[Hg] Leonelse y Seybold - pressure External Heart rate 2022-08-17 15:52:00 84 /min Chapis Azar eybold - External Body temperature 2022-08-17 15:52:00 36.67 Mily Josette sampson Seybold - External Respiratory rate 2022-08-17 15:52:00 14 /min Josette sampson Seybold - External Body height 2022-08-17 15:52:00 157.5 cm Chapis Azar eybold - External Body weight 2022-08-17 15:52:00 65.772 kg Chapis Azar eybold - External BMI 2022-08-17 15:52:00 26.52 kg/m2 Chapis Azar eybold - External Oxygen saturation in 2022-08-17 15:52:00 99 /min Chapis Seybold - Arterial blood by External Pulse oximetry Systolic blood 2022-08-09 15:05:00 124 mm[Hg] Univer sity of pressure [facility] Diastolic blood 2022-08-09 15:05:00 84 mm[Hg] Unive rsity of pressure [facility] Heart rate 2022-08-09 15:03:00 77 /min Universi ty [facility] Body temperature 2022-08-09 15:03:00 36.83 Mily Univ ersity of [facility] Respiratory rate 2022-08-09 15:03:00 18 /min Univ ersity of [facility] Body height 2022-08-09 15:03:00 157.5 cm [facility] Body weight 2022-08-09 15:03:00 63.957 kg [facility] BMI 2022-08-09 15:03:00 25.79 kg/m2 [facility] BP Diastolic 2022-03-18 00:00:00 84 mm[Hg] [facility] Height 2022-03-18 00:00:00 62 [in_i] [facility] s BMI (Body Mass 2022-03-18 00:00:00 25.8 kg/m2 [facility] Index) [facility] BP Systolic 2022-03-18 00:00:00 118 mm[Hg] [facility] s Body Weight 2022-03-18 00:00:00 2256 [oz_av] [facility] s BP Diastolic 2022-03-02 00:00:00 92 mm[Hg] [facility] Height 2022-03-02 00:00:00 62 [in_i] [facility] s BMI (Body Mass 2022-03-02 00:00:00 26.3 kg/m2 [facility] Index) [facility] BP Systolic 2022-03-02 00:00:00 145 mm[Hg] [facility] s Body Weight 2022-03-02 00:00:00 2304 [oz_av] [facility] BP Diastolic 2022-02-23 00:00:00 91 mm[Hg] [facility] Height 2022-02-23 00:00:00 62 [in_i] [facility] s BMI (Body Mass 2022-02-23 00:00:00 26.3 kg/m2 [facility] Index) [facility] s BP Systolic 2022-02-23 00:00:00 141 mm[Hg] [facility] Body Weight 2022-02-23 00:00:00 2304 [oz_av] [facility] BP Diastolic 2022-02-16 00:00:00 92 mm[Hg] [facility] Height 2022-02-16 00:00:00 62 [in_i] [facility] BMI (Body Mass 2022-02-16 00:00:00 26 kg/m2 [facility] BP Systolic 2022-02-16 00:00:00 135 mm[Hg] [facility] Body Weight 2022-02-16 00:00:00 2273.6 [oz_av] [facility] s BP Diastolic 2022-02-09 00:00:00 88 mm[Hg] [facility] s Height 2022-02-09 00:00:00 62 [in_i] [facility] s BMI (Body Mass 2022-02-09 00:00:00 26.2 kg/m2 [facility] BP Systolic 2022-02-09 00:00:00 128 mm[Hg] [facility] s Body Weight 2022-02-09 00:00:00 2288 [oz_av] [facility] s BP Diastolic 2022-01-28 00:00:00 85 mm[Hg] [facility] Height 2022-01-28 00:00:00 62 [in_i] [facility] s BMI (Body Mass 2022-01-28 00:00:00 26.7 kg/m2 [facility] BP Systolic 2022-01-28 00:00:00 138 mm[Hg] [facility] s Body Weight 2022-01-28 00:00:00 2336 [oz_av] [facility] Procedures Procedure Date / Time Performing Clinician Source Performed [facility] PATIENT FINANCIAL 2022-12-07 15:55:45 Doctor Unassigned, Un [facility] POLICY [facility] MR PELVIS W WO CONTRAST 2022-11-19 16:51:00 Shira Holt [facility] Medical Gary INSURANCE CORRESPONDENCE 2022-11-05 06:01:00 Doctor Unassigned, [facility] EXTERNAL PROVIDER RECORDS 2022-10-06 06:01:00 Doctor Ryan [facility] US PELVIS COMPLETE WITH 2022-10-05 16:08:39 Ophelia Zepeda [facility] TRANSVAGINAL Medical Branch EXTERNAL PROVIDER RECORDS 2022-08-06 05:01:00 Doctor Ryan [facility] ASSIGNMENT OF BENEFITS 2022-07-26 18:49:24 Doctor Ryan [facility] AUTHORIZATION FOR RELEASE 2022-03-17 05:01:00 Doctor Ryan [facility] MAMMO, diagnostic, 2022-02-26 00:00:00 Babs [facility] US, breast, unilateral 2022-02-26 [facility], screening, 2022-01-28 00:00:00 [facility] Plan of Care Planned Activity Planned Date Details Comments Source Future Scheduled 2023-06-08 Screening for [facility] Test 08:21:08 malignant neoplasm of colon (procedure) [code = 894571008] Future Scheduled 2023-06-08 Scre[facility] Test 08:21:08 malignant neoplasm of colon (procedure) [code = 113593938] Future Scheduled 2023-06-08 [facility] Test 08:21:08 malignant neoplasm of colon (procedure) [code = 706756560] Future Scheduled 2023-06-08 COVID-19 VACCINE [facility] Test 08:21:08 (#1) [code = COVID-19 VACCINE (#1)] Future Scheduled 2023-06-08 Screening for [facility] Test 08:21:08 malignant neoplasm of cervix (procedure) [code = 659802808] Future Scheduled 2023-06-08 BREAST CANCER [facility] Test 08:21:08 SCREENING [code = BREAST CANCER SCREENING] Future Scheduled 2023-06-08 Scre[facility] Test 08:21:08 malignant neoplasm of colon (procedure) [code = 285935244] Future Scheduled 2023-06-08 Scre[facility] Test 08:21:08 malignant neoplasm of colon (procedure) [code = [id number]] Future Scheduled 2023-06-08 INFLUENZA VACCINE [facility] Test 08:21:08 (#1) [code = INFLUENZA VACCINE (#1)] Encounters Start End Encounter Admission Attending Care Care Encounter Source Date/Time Date/Time Type Type Clinicians Facility Department ID 2021-08-02 Emergency [facility] [id number] Univers 18:50:28 [facility] 2023-05-20 2023-05-20 Outpatient PREZACHAPIS Azar [id number] Chapis 00:00:00 00:00:00 EDWIN Seybol d 2023-04-18 2023-04-18 Outpatient PREZASCHAPIS [id number] Chapis 00:00:00 00:00:00 EDWIN Seybol d 2023-04-15 2023-04-15 Outpatient PREZASCHAPIS [id number] Chapis 00:00:00 00:00:00 EDWIN Seybol d 2023-04-08 2023-04-08 Outpatient PREZASCHAPIS [id number] Chapis 00:00:00 00:00:00 EDWIN Seybol d 2023-04-07 2023-04-07 Outpatient PREZASCHAPIS [id number] Chapis 14:30:00 14:30:00 EDWIN Seybol d 2023-04-07 2023-04-07 Outpatient LAB90 CHAPIS WOOTEN [id number] Chapis 08:40:00 08:40:00 Seybol d 2023-04-07 2023-04-07 Outpatient PREZASCHAPIS [id number] Chapis 00:00:00 00:00:00 EDWIN Seybol d 2023-03-30 2023-03-30 Outpatient PREZASCHAPIS [id number] Chapis 00:00:00 00:00:00 EDWIN Seybol d 2023-03-21 2023-03-21 Outpatient PREZASCHAPIS [id number] Chapis 09:15:00 09:15:00 EDWIN Seybol d 2023-03-18 2023-03-18 Outpatient PREZASCHAPIS [id number] Chapis 16:45:00 16:45:00 EDWIN Seybol d 2023-03-15 2023-03-15 Outpatient PREZAS, CHAPIS WOOTEN [id number] Chapis 00:00:00 00:00:00 EDWIN Seybol d 2023-03-08 2023-03-08 Outpatient PREZAS, CHAPIS WOOTEN [id number] Chapis 13:45:00 13:45:00 EDWIN Seybol d 2023-03-08 2023-03-08 Tessa Holt [facility] [id number] Univers 00:00:00 00:00:00 Shira ROJAS 350.1.13.10 [facility] [id number] Mandy MACK [id number] [place] dic[address] 2023-02-07 2023-02-07 Outpatient PREZAS, CHAPIS WOOTEN [id number] Chapis 11:00:00 11:00:00 EDWIN Seybol d 2023-02-04 2023-02-04 Outpatient PREZAS, CHAPIS WOOTEN [id number] Chapis 00:00:00 00:00:00 EDWIN Seybol d 2023-01-20 2023-01-20 Outpatient HUNDL, CHAPIS WOOTEN [id number] Chapis 00:00:00 00:00:00 KALIA Seybol d 2023-01-13 2023-01-13 Outpatient PREZAS, CHAPIS WOOTEN [id number] Chapis 00:00:00 00:00:00 EDWIN Seybol d 2023-01-13 2023-01-13 Outpatient PREZASCHAPIS [id number] Chapis 00:00:00 00:00:00 EDWIN Seybol d 2023-01-10 2023-01-10 Outpatient LAB90 CHAPIS WOOTEN [id number] Chapis 09:40:00 09:40:00 Seybol d 2023-01-10 2023-01-10 Outpatient PREZAS, CHAPIS WOOTEN [id number] Chapis 00:00:00 00:00:00 EDWIN Seybol d 2023-01-04 2023-01-04 Outpatient CHAPIS VALENTIN [id number] Chapis 00:00:00 00:00:00 EDWIN Serachel carballo 2022-12-07 2022-12-07 Outpatient R YANET [facility] [id number] Univers 10:15:00 11:06:21 [facility] 2022-12-07 2022-12-07 Office [facility] [id number] Univers 10:15:00 11:06:21 Visit Shira ROJAS 350.1.13.10 i [place] [id number] [place] d[place] [facility] 134 [facility] 2022-12-07 2022-12-07 Orders Doctor MAHSA [id number] [id number] Univers 00:00:00 00:00:00 Only Unassigned, JESSEE 350.1.13.10 ity of [place] [facility] 4.2.7.2.686 Teddy as [id number] [facility] [address] 2022-11-29 2022-11-29 Telephone Davina De La Torre [facility] 1.2.840.114 [id number] Univers 00:00:00 00:00:00 Leonel ROJAS 350.1.13.10 i [place] [id number] [place] dic[address] 2022-11-19 2022-11-19 Outpatient Katharine HOLT [facility] [id number] Univers 09:12:13 23:59:00 SHIRA [facility] 2022-11-19 2022-11-19 [facility] 1.2.840.114 [id number] Univers 09:12:13 23:59:00 Encounter Shira ORJAS 350.1.13.10 [place] [id number] [facility] [address] 2022-11-11 2022-11-11 Outpatient R DAVINA DE LA TORRE [facility] [id number] Univers 14:30:00 14:30:00 ity of [facility] 2022-11-10 2022-11-10 Outpatient R YANET [facility] [id number] Univers 00:00:00 00:00:00 SHIRA ity of [facility] 2022-11-05 2022-11-05 Orders Doctor MAHSA [id number] [id number] Univers 00:00:00 00:00:00 Only Unassigned, JESSEE 350.1.13.10 ity of [place] [facility] 4.2.7.2.686 Teddy as [id number] [facility] [address] 2022-10-21 2022-10-21 Outpatient R DAVINA DE LA TORRE [facility] [id number] Univers 09:30:00 10:38:06 ity of [facility] 2022-10-21 2022-10-21 Office Shira Holt [facility] 1.2.840.11 [id number] Univers 09:30:00 10:38:06 Visit Davina De La Torre 350.1.13.10 ity [place] [place] [facility] [id number] [place] dical [address] 2022-10-06 2022-10-06 Orders Doctor MAHSA 1.2.840.114 [id number] Univers 00:00:00 00:00:00 Only Unassigned, JESSEE 350.1.13.10 ity of [place] [facility] 4.2.7.2.686 Teddy as [id number] [address] 2022-10-05 2022-10-05 Outpatient R OPHELIA ZEPEDA [facility] B [id number] Univers 08:46:48 23:59:00 OPHELIA ZEPEDA ity of [facility] 2022-10-05 2022-10-05 [facility] Sylvia [facility] 1.2.840.114 [id number] Univers 08:46:48 23:59:00 Encounter Ophelia ROJAS 350.1.13.10 [place] [id number] [facility] [address] 2022-10-05 2022-10-05 Emergency X [facility] [id number] Univers 08:29:36 08:30:00 [facility]22-[facility]-23 2022-09-23 Telephone Sylvia [facility] 1.2.840.11 [id number] Univers 00:00:00 00:00:00 Ophelia YI 350.1.13.10 it y of [place] 4[place]2.7.2.686 [facility] [id number] [address] 2022-09-23 2022-09-23 Telephone [facility] 1.2.840.11 [id number] Univers 00:00:00 00:00:00 Ophelia YI 350.1.13.10 it y of [place]'S 4.2.7.2.686 [facility] [id number] [address] 2022-09-10 2022-09-10 Outpatient R OPHELIA ZEPEDA [facility] B [id number] [facility] 00:00:00 00:00:00 OPHELIA ZEPEDA [facility] 2022-09-07 2022-09-07 Outpatient CHAPIS VALENTIN [id number] Chapis 00:00:00 00:00:00 EDWIN Seybol haris 2022-09-07 2022-09-07 Outpatient CHAPIS VALENTIN [id number] Chapis 00:00:00 00:00:00 EDWIN Seybol haris 2022-08-31 2022-08-31 Outpatient CHAPIS VALENTIN [id number] Chapis 11:15:00 11:15:00 EDWIN Seybol haris 2022-08-20 2022-08-20 Outpatient CHAPIS VALENTIN [id number] Chapis 08:00:00 08:00:00 EDWIN Seybol d 2022-08-17 2022-08-17 Outpatient CHAPIS NEWELL [id number] Chapis 10:00:00 10:00:00 SERA Seybol haris 2022-08-09 2022-08-09 [facility] 1.2.840.114 [id number] [facility] 09:30:00 09:30:00 Visit Ophelia YI 350.1.13.10 it [place] [id number] [address] 2022-08-09 2022-08-09 Outpatient R OPHELIA ZEPEDA [facility] B [id number] Univers 09:30:00 09:18:01 TRIRAMIROOPHELIA CHEN mariza [facility] 2022-08-06 2022-08-06 Orders Doctor MAHSA 1.2.840.114 [id number] Univers 00:00:00 00:00:00 Only Unassigned, JESSEE 350.1.13.10 ity of [place] [facility] 4.2.7.2.686 Teddy as [id number] [address] 2022-07-28 2022-07-28 Outpatient CHAPIS VALENTIN [id number] Chapis 00:00:00 00:00:00 EDWIN carballo 2022-07-27 2022-07-27 [facility] 1.2.840.11 [id number] Univers 00:00:00 00:00:00 Ophelia YI 350.1.13.10 it y [place] [id number] [address] 2022-07-26 2022-07-26 Outpatient R OPHELIA ZEPEDA [facility] B [id number] Univers 14:15:00 14:20:21 CHIKIOPHELIA CHEN christianamaria fernanda [facility] 2022-07-26 2022-07-26 Office [facility] 1.2.840.114 [id number] Univers 14:15:00 14:20:21 Visit Ophelia KASSIDY 350.1.13.10 it y [place] [id number] [address] 2022-07-26 2022-07-26 Orders Doctor BRAGG 1.2.840.114 [id number] Univers 00:00:00 00:00:00 Only Unassigned, JESSEE 350.1.13.10 ity of [place] [facility] 4.2.7.2.686 Teddy as [id number] [facility] lianna [address] 2022-07-25 2022-07-25 Outpatient CHAPIS VALENTIN CHAPIS [id number] Chapis 00:00:00 00:00:00 EDWIN Seybol d 2022-07-23 2022-07-23 Outpatient LAB90 CHAPIS HANDSEY [id number] Chapis 09:05:00 09:05:00 Seybol d 2022-07-23 2022-07-23 Outpatient CHAPIS VALENTIN CHAPIS [id number] Chapis 08:30:00 08:30:00 EDWIN Seybol d 2022-04-16 2022-04-16 Outpatient ELY_ROCHELLE CHANDA [facility] [id number] [facility] 03:05:00 03:05:00 0715 da [facility] Outre h Program 2022-03-18 2022-03-18 [facility] [id number] [place] 09:30:00 09:30:00 616 Commun i [facility] 2022-03-18 2022-03-18 [facility] [place] [address] [place] 00:00:00 00:00:00 Raji [facility] MSN, MARINE ARCHITECT, Hospital - ty HAND STONE POLISHER-C: [address] [place] [facility] Clinic s [address] [facility] [address], Babs Alegria, JOY MSN, HAND STONE POLISHER-C [id number] , Ph. 2022-03-18 2022-03-18 [facility] [id number] 00:00:00 00:00:00 Luis Angel [id number] 2022-03-17 2022-03-17 Orders Doctor BRAGG 1.2.840.114 [id number] [facility] 00:00:00 00:00:00 Only Unassigned, JESSEE 350.1.13.10 ity of [place] [facility] 4.2.7.2.686 Teddy as [id number] Medi lianna [address] 2022-03-162022-03-[address] SISSON_C [facility] [id number] [place] 05:15:00 05:15:00 614 Commun i ty Hospita l Clinics 2022-03-16 2022-03-16 [facility] [place] [facility] [place] [address] [place] 00:00:00 00:00:00 [facility] MSN, MARINE ARCHITECT, Hospital - ty HAND STONE POLISHER-C: [address] [place] [facility] s [address], [address], [place], [place] MSN, HAND STONE POLISHER-C [id number] , Ph. 2022-03-16 2022-03-[address] [facility] [id number] 00:00:00 00:00:00 Luis Angel [id number] 2022-03-02 2022-03-02 Out[address] SISSON_C [facility] [id number] [place] 03:32:00 03:32:00 531 [facility] 2022-03-02 2022-03-02 [facility] [place] [address] [place] 00:00:00 00:00:00 Raji, [facility] MSN, MARINE ARCHITECT, Hospital - ty HAND STONE POLISHER-C: [address] [facility], Clinic s [address], [place], [place] MSN, HAND STONE POLISHER-C [id number] , Ph. 2022-03-02 2022-03-[address] [facility] [id number] 00:00:00 00:00:00 Luis Angel [id number] 2022-03-02 Outpatient Raji, [facility] [id number] 00:00:00 00:00:00 Luis Angel [id number] 2022-02-25 [address] SIS[address]_C [facility] [id number] [place] 09:30:00 09:30:00 526 [facility] i [facility]osp[facility] Clinics 2022-02-23 2022-02-23 [address] SISSON_C [facility] [id number] [place] 05:35:00 05:35:00 524 [facility]ics 2022-02-23 2022-02-[address] [facility] [id number] 00:00:00 00:00:00 Luis Angel [id number] 2022-02-23 [facility] [place] 00:00:00 00:00:00 Raji [facility] [place] [facility] MSN, MARINE ARCHITECT, Hospital - ty HAND STONE POLISHER-C: [address] [facility] [facility], Clinic s [address], [address], [place], [place] MSN, HAND STONE POLISHER-C [id number] , Ph. 2022-02-16 2022-02-16 Out[address] YOANDYSON_C [facility] [id number] [place] 05:33:00 05:33:00 517 Commun i ty Hospita l [facility] 2022-02-16 2022-02-[address] [facility] [id number] 00:00:00 00:00:00 Luis Angel [id number] 2022-02-16 2022-02-16 [facility] [place] 00:00:00 00:00:00 Raji [facility] MSN, MARINE ARCHITECT, [facility] - ty HAND STONE POLISHER-C: [address] [facility], Clinic s [address], [address], [place], [place] MSN, HAND STONE POLISHER-C [id number] , Ph. 2022-02-14 2022-02-14 [address] SISSON_C [facility] [id number] [place] 02:10:00 02:10:00 515 Commun i ty Hospita l Clinics 2022-02-09 2022-02-09 Out[address] SISSON_C [facility] [id number] [place] 03:37:00 03:37:00 510 Commun i ty Hospita l Clinics 2022-02-09 2022-02-[address] 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 [address], [facility] [address], [place] MSN, HAND STONE POLISHER-C [id number] , Ph. 2022-01-28 2022-01-28 [address] SISSON_C 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 [address], [address], [place], [place] MSN, HAND STONE POLISHER-C [phone] , Ph. 2022-01-28 2022-01-[address] [facility] [id number] 00:00:00 00:00:00 Luis Angel [id number] 2022-01-27 2022-01-27 Out[address] SISSON_C [facility] [id number] [place] 03:07:00 03:07:00 427 Commun i ty Hospita [facility] Clinics 2020-07-10 2020-07-10 Outpatient R CINTHIA [facility] [id number] Univers 15:15:00 15:15:00 WONDIFUL ity o f [facility] 2020-06-27 2020-06-27 Outpatient R CITNHIA [facility] [id number] Univers 08:20:00 08:20:00 WONDIFUL ity o f [facility] 2020-06-19 2020-06-19 Outpatient R CINTHIA [facility] [id number] Univers 15:00:00 15:00:00 WONDIFUL ity o f [facility] 2020-06-11 2020-06-11 Outpatient R [facility] [id number] Univers 08:30:00 08:30:00 ity [facility] 2020-06-05 2020-06-05 Outpatient R CINTHIA [facility] [id number] Univers 13:45:00 13:45:00 WONDIFUL ity o f [facility] 2020-04-28 2020-04-28 Outpatient R CINTHIA [facility] [id number] Univers 15:30:00 15:30:00 WONDIFUL ity o f [facility] 2020-04-28 2020-04-28 Outpatient R CINTHIA [facility] [id number] Univers 08:45:00 08:45:00 WONDIFUL ity o f [facility] 2020-01-31 2020-01-31 Outpatient R CINTHIA [facility] [id number] Univers 11:20:00 11:20:00 WONDIFUL ity o f [facility] 2020-01-27 2020-01-27 Outpatient R RENEA [facility] [id number] Univers 18:00:00 18:00:00 ROSITA dawkins [facility] 2019-12-21 2019-12-21 Outpatient R RONNI [facility] [id number] Univers 09:00:00 09:00:00 ROMEL dawkins [facility] 2019-11-23 2019-11-23 Outpatient R RONNI, [facility] [id number] Univers 10:00:00 11:24:28 ROMELHANSA dawkins [facility] Results This patient has no known results.
--- NOTE | 2023-06-15 09:26 | RAD REPORT ---
EXAM DESCRIPTION: USExtrem Venous W Compress Bil06/15/2023 9:18 am CLINICAL HISTORY: Leg pain COMPARISON: none FINDINGS: The common femoral, superficial femoral, greater saphenous, popliteal and posterior tibial veins bilaterally are compressible and demonstrate augmentation. Doppler demonstrates good flow. Grayscale, color and spectral analysis performed on all vessels IMPRESSION: No evidence of deep venous thrombosis involving either lower extremity.
--- NOTE | 2023-06-15 09:31 | RAD REPORT ---
EXAM DESCRIPTION: US - Lower Extremity Arterial Bilat - 06/15/2023 9:18 am CLINICAL HISTORY: Leg pain COMPARISON: None FINDINGS: Right common femoral artery demonstrates triphasic waveforms Right superficial femoral artery demonstrates biphasic and triphasic waveforms The right popliteal, posterior tibial and dorsalis pedis arteries demonstrate biphasic waveforms The left common femoral artery demonstrates triphasic waveforms. 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
--- NOTE | 2023-06-15 09:53 | RAD REPORT ---
EXAM DESCRIPTION: Carmela Single View06/15/2023 9:42 am CLINICAL HISTORY: Chest pain COMPARISON: 2018 FINDINGS: The lungs appear clear of acute infiltrate. The heart is normal size IMPRESSION: No acute abnormalities displayed
[2023-06-15 09:58] LABS: Hematocrit 42.5 % (36.0-45.0); Lymphocytes % 25.9 % (15.3-44.8); MCV 89.9 fL (80-100); MPV 8.3 fL (7.6-11.3); Platelets 272 thou/uL (152-406); RBC Red Blood Cell Count 4.73 M/uL (3.86-4.86)
[2023-06-15 09:59] LABS: Protime INR 0.93
[2023-06-15 10:13] LABS: Albumin 4.5 g/dL (3.4-5.0); Bilirubin Direct 0.1 mg/dL (0-0.2); Bilirubin Indirect, Calculated 0.4 mg/dL (0.2-0.8); Bilirubin Total 0.5 mg/dL (0.2-1.0); Potassium 4.1 mEq/L (3.5-5.1); Protein, Total 9.3 g/dL (6.4-8.2)
--- NOTE | 2023-06-15 10:41 | EDPHYS ---
Physician Documentation [facility] Name: Shahnaz Ortega Age: 47 yrs Sex: Female : 1975 Arrival Date: 06/15/2023 Time: 08:09 Bed 5 Private MD: ED Physician Bert Cherry HPI: 06/15 08:44 This 47 yrs old Female presents to ER via Ambulatory with complaints of Cough, kb Chest Pain, Chest Congestion, Back Pain. 08:44 The patient or guardian reports cough, that is intermittent, described as mild. Onset: kb The symptoms/episode began/occurred 1 month(s) ago. Severity of symptoms: At their worst the symptoms were mild, moderate, in the emergency department the symptoms are unchanged. Modifying factors: The symptoms are alleviated by nothing, the symptoms are aggravated by nothing. Associated signs and symptoms: Pertinent positives: chest pain, Pertinent negatives: diarrhea, ear ache, fever, nausea, rhinorrhea, sore throat, vomiting. The patient has not experienced similar symptoms in the past. The patient has not recently seen a physician. 08:49 Patient reports cough, chest pain, back pain, lower extremity pain that started 1 month kb ago. States she has been seen by Dr. Tomas who put her on blood thinners for poor circulation to her lower extremities. States she has been on lisinopril as well and heard that it can cause a cough so she stopped taking it 1 week ago. Patient reports back and chest pain are worse with cough. Also concerned because she bruises easily now that she is on blood thinners.. Historical: - Allergies: 08:19 NKA; iw - PMHx: 08:19 Anxiety; Hypertension; iw - Immunization history:: Adult Immunizations up to date. - Social history:: Smoking status: Patient denies any tobacco usage or history of. ROS: 08:40 Constitutional: Negative for fever, chills, and weight loss. kb 08:40 Cardiovascular: Positive for chest pain. 08:40 Respiratory: Positive for cough. 08:40 Back: Positive for pain at rest, pain with movement. 08:40 MS/extremity: Positive for pain, of the right leg and left leg. 08:40 All other systems are negative. Exam: 08:43 Constitutional: This is a well developed, well nourished patient who is awake, alert, kb and in no acute distress. Head/Face: Normocephalic, atraumatic. ENT: Moist Mucous membranes Cardiovascular: Regular rate Respiratory: Respirations even and unlabored. No increased work of breathing. Talking in full sentences Abdomen/GI: Soft, non-tender. No distention Skin: Warm, dry with normal turgor. Normal color. MS/ Extremity: Pulses equal, no cyanosis. Neurovascular intact. Full, normal range of motion. Neuro: Awake and alert, GCS 15, oriented to person, place, time, and situation. Moves all extremities. Normal gait. Vital Signs: 08:19 BP 143 / 99; Pulse 76; Resp 16; Temp 98.2; Pulse Ox 98% on R/A; Weight 62.14 kg; Height iw 5 ft. 2 in. ; 10:57 BP 148 / 83; Pulse 65; Resp 16; Pulse Ox 100% ; ko1 08:19 Body Mass Index 25.06 (62.14 kg, 157.48 cm) iw MDM: 08:14 Patient medically screened. kb 08:44 Data reviewed: vital signs, nurses notes. kb 10:41 Differential Diagnosis: Bronchitis Upper Respiratory Infection Other dvt, pvd, kb pneumonia, lisinopril side effect. Counseling: I had a detailed discussion with the patient and/or guardian regarding the historical points, exam findings, and any diagnostic results supporting the discharge/admit diagnosis, lab results, radiology results, the need for outpatient follow up, a family practitioner, to return to the emergency department if symptoms worsen or persist or if there are any questions or concerns that arise at home. 06/15 08:24 Order name: Basic Metabolic Panel; Complete Time: 10:14 kb 06/15 08:24 Order name: CBC with Diff; Complete Time: 10:03 kb 06/15 08:24 Order name: LFT's; Complete Time: 10:14 kb 06/15 08:24 Order name: Magnesium; Complete Time: 10:14 kb 06/15 08:24 Order name: NT PRO-BNP; Complete Time: 10:14 kb 06/15 08:24 Order name: PT-INR; Complete Time: 10:00 kb 06/15 08:24 Order name: Troponin HS; Complete Time: 10:14 kb 06/15 08:24 Order name: XRAY Chest (1 view); Complete Time: 09:59 kb 06/15 08:26 Order name: US Extremity Venous W Compression Andrei; Complete Time: 09:27 kb 06/15 08:26 Order name: Lower Extremity Arterial Bilat US; Complete Time: 09:36 kb 06/15 08:24 Order name: EKG; Complete Time: 08:25 kb 06/15 08:24 Order name: Cardiac monitoring; Complete Time: 08:36 kb 06/15 08:24 Order name: EKG - Nurse/Tech; Complete Time: 08:36 kb 06/15 08:24 Order name: IV Saline Lock; Complete Time: 09:38 kb 06/15 08:24 Order name: Labs collected and sent; Complete Time: 09:38 kb 06/15 08:24 Order name: O2 Per Protocol; Complete Time: 08:25 kb 06/15 08:24 Order name: O2 Sat Monitoring; Complete Time: 08:25 kb Administered Medications: No medications were administered Disposition: 11:24 Co-signature as Attending Physician, Bert Cherry MD I reviewed the patient's care rt provided by the Advanced Practice Provider and agree with the diagnosis and treatment plan. Disposition Summary: 06/15/23 10:40 Discharge Ordered Location: Home kb Condition: Stable kb Diagnosis - Cough kb - Pain in leg, unspecified - bilateral kb Followup: kb - With: Emergency Department - When: As needed - Reason: Worsening of condition Followup: kb - With: Private Physician - When: 2 - 3 days - Reason: Recheck today's complaints, Continuance of care, Re-evaluation by your physician Discharge Instructions: - Discharge Summary Sheet kb - Musculoskeletal Pain kb - Cough, Adult, Zfkw-av-Ulmt kb - Peripheral Vascular Disease, Blwe-ic-Hgbj kb Forms: - Medication Reconciliation Form kb - Thank You Letter kb - Antibiotic Education kb - Prescription Opioid Use kb - Patient Portal Instructions kb - Leadership Thank You Letter kb Signatures: Dispatcher [employer] Chely Jamil, BOAT BUILDER AND REPAIRER-C BOAT BUILDER AND REPAIRER-Lo Healy, ANNITA RN iw Lisa Galvez RN RN ld1 Bert Cherry MD MD rt Corrections: (The following items were deleted from the chart) 09:04 09:02 Differential Diagnosis: Viral Syndrome Pneumonia Other flu, covid, uri, strep kb kb
--- NOTE | 2023-06-15 10:41 | ER ---
Nurse's Notes [facility] Name: Shahnaz Ortega Age: 47 yrs Sex: Female : 1975 Arrival Date: 06/15/2023 Time: 08:09 Bed 5 Private MD: Diagnosis: Cough;Pain in leg, unspecified-bilateral Presentation: 06/15 08:19 Chief complaint: Chief complaint: Patient states: cough X 1 month , back pain and body iw aches, chest pain with cough , has been on lisinopril but stopped it a week ago to see if it would help the cough, also has leg pain and was told she has bad circulation. 08:19 Coronavirus screen: At this time, the client does not indicate any symptoms associated iw with coronavirus-19. Ebola Screen: Patient negative for fever greater than or equal to 101.5 degrees Fahrenheit, and additional compatible Ebola Virus Disease symptoms Patient denies exposure to infectious person. Patient denies travel to an Ebola-affected area in the 21 days before illness onset. No symptoms or risks identified at this time. Initial Sepsis Screen: Does the patient meet any 2 criteria? No. Patient's initial sepsis screen is negative. Does the patient have a suspected source of infection? No. Patient's initial sepsis screen is negative. Risk Assessment: Do you want to hurt yourself or someone else? Patient reports no desire to harm self or others. Onset of symptoms was May 2023. 08:19 Method Of Arrival: Ambulatory iw 08:19 Acuity: KRISTI 3 iw Historical: - Allergies: 08:19 NKA; iw - PMHx: 08:19 Anxiety; Hypertension; iw - Immunization history:: Adult Immunizations up to date. - Social history:: Smoking status: Patient denies any tobacco usage or history of. Screenin:41 [facility] ED Fall Risk Assessment (Adult) History of falling in the last 3 months, ld1 including since admission No falls in past 3 months (0 pts). Abuse screen: Denies threats or abuse. Denies injuries from another. Nutritional screening: No deficits noted. Tuberculosis screening: No symptoms or risk factors identified. Assessment: 08:41 General: Appears in no apparent distress. comfortable, Behavior is calm, cooperative, ld1 appropriate for age. Pain: Complains of pain in chest Pain does not radiate. Pain currently is 8 out of 10 on a pain scale. Quality of pain is described as throbbing, Pain began 1 day ago. Neuro: Level of Consciousness is awake, alert, obeys commands, Oriented to person, place, time, situation. Cardiovascular: Capillary refill < 3 seconds Patient's skin is warm and dry. Rhythm is sinus rhythm. Respiratory: Airway is patent Respiratory effort is even, unlabored. GI: No signs and/or symptoms were reported involving the gastrointestinal system. : No signs and/or symptoms were reported regarding the genitourinary system. EENT: No signs and/or symptoms were reported regarding the EENT system. Derm: No signs and/or symptoms reported regarding the dermatologic system. Musculoskeletal: No signs and/or symptoms reported regarding the musculoskeletal system. Vital Signs: 08:19 BP 143 / 99; Pulse 76; Resp 16; Temp 98.2; Pulse Ox 98% on R/A; Weight 62.14 kg; Height iw 5 ft. 2 in. ; 10:57 BP 148 / 83; Pulse 65; Resp 16; Pulse Ox 100% ; ko1 08:19 Body Mass Index 25.06 (62.14 kg, 157.48 cm) iw ED Course: 08:13 Patient arrived in ED. ts1 08:14 Chely Garcia [facility]-C [facility]. kb 08:14 Bert Cherry MD is Attending Physician. kb 08:21 Triage completed. iw 08:22 Arm band placed on. iw 08:26 Lisa Galvez, RN is Primary Nurse. ld1 08:41 Patient has correct armband on for positive identification. Placed in gown. Bed in low ld1 position. Call light in reach. Side rails up X2. panel monitor on. Pulse ox on. NIBP on. Door closed. Noise minimized. Warm blanket given. 08:41 No provider procedures requiring assistance completed. Patient maintains SpO2 ld1 saturation greater than 95% on room air. 09:19 US Extremity Venous W Compression Andrei In Process Unspecified. EDMS 09:19 Lower Extremity Arterial Bilat US In Process Unspecified. EDMS 09:38 Inserted saline lock: 20 gauge in right antecubital area, using aseptic technique. ld1 Blood collected. 09:42 XRAY Chest (1 view) In Process Unspecified. EDMS 10:57 Provided Education on: na. ko1 10:57 IV discontinued, intact, bleeding controlled, No redness/swelling at site. Pressure ko1 dressing applied. Administered Medications: No medications were administered Medication: 08:41 VIS not applicable for this client. ld1 Outcome: 10:40 Discharge ordered by . kb 10:57 Discharged to home ambulatory. ko1 10:57 Condition: stable 10:57 Discharge instructions given to patient, Instructed on discharge instructions, follow up and referral plans. Demonstrated understanding of instructions, follow-up care. 11:01 Patient left the ED. ko1 Signatures: Dispatcher [employer] EDMS Chely Garcia, SQUEEGEE TENDER-C SQUEEGEE TENDER-Ckb Lo Robles RN RN iw Lisa Galvez RN RN ld1 Koki Nix RN RN ko1 Katy Edmond, SUAD PAS ts1 Corrections: (The following items were deleted from the chart) 08:21 08:19 Chief complaint: iw iw 08:22 08:19 Chief complaint: Patient states: cough X 1 month , back pain and body aches Chief iw complaint: Patient states: cough X 1 month , back pain and body aches iw 08:23 08:19 Chief complaint: Patient states: cough X 1 month , back pain and body aches, iw chest pain with cough , has been on lisinopril but stopped it a week ago to see if it would help the cough Chief complaint: Patient states: cough X 1 month , back pain and body aches, chest pain with cough , has been on lisinopril but stopped it a week ago to see if it would help the cough iw
[2023-06-15 11:18] VITALS: TEMP 98.2
[2023-06-15 11:24] VITALS: BP 148/83; O2SAT 100
--- NOTE | 2023-06-16 13:04 | EKG ---
Test Date: 2023-06-15 Test Time: 08:31:16 [employer] Advisor: SANDRA MEASUREMENT RESULTS: Intervals: Rate: 61 SD: 138 QRSD: 78 QT: 412 QTc: 414 E[place]: P: 35 SD: 138 QRS: 55 T: 56 INTERPRETIVE STATEMENTS: Normal sinus rhythm Normal ECG Compared to ECG 03/08/2018 15:22:01 Sinus bradycardia no longer present Electronically Signed On 06-16-23 13:01:24 CDT by Yahir Viveros
== END 2023-06-15 11:01 | disposition home or self-care (01) ==
LOC: ER 08:09
DX: R05.9 Cough, unspecified (principal); M79.605 Pain in left leg; M79.604 Pain in right leg
CPT/HCPCS: 36415; 71045; 80048; 80076; 83735; 83880; 84484; 85025; 85610; 93005; 93925; 93970; 99285